=== PATIENT | female | born 1945 | race Caucasian/White ===

== ENCOUNTER → 2017-11-25 | Outpatient (CLI) | payer OTHER ==
[~2017-11-25] MED LIST: ACET500 PO; ACET650SUP PR; ACTOPLUS MET 15/850; AMIO200 PO; AMLO5 PO; AMOCLA875 PO; APAP PO; ASCO500 PO; ASPI81CH PO; ASPI81EC; ASPI81EC PO; ATOR40TA PO; ATOR80 PO; Aspirin EC81 MG PO; BISA10S PR; BISA5EC PO; CALCAVITD PO; CALGLU500 PO; CARV3.125 PO; CARV6.25 PO; CELE100 PO; CEPH500 PO; CHOL10002 PO; CILO100 PO; CILO50 PO; CIPR500 PO; CLIN300 PO; CLOP75 PO; CYAN1000 PO; CYAN500 PO; CYCL10 PO; Coreg6.25 MG PO; DIPH50 PO; DIPHENHYDRAMINE PO; DOCU100 PO; DRON400T PO; FAMO20 PO; FERR325 PO; FISH1000 PO; FLUC150A PO; FURO20 PO; FURO40 PO; FURO80 PO; GABA100 PO; GABA300 PO; HYDACE5 PO; HYDCHL25 PO; HYDHCL10 PO; INSDET100 SC; INSUASPI SC; INSUASPI SUBQ; INSULANI SC; INSULANI SUBQ; INSULANPEN SC; IRBE150; IRBE150 PO; ISOMON60ER PO; Jantoven6 MG PO; K-Tab10 MEQ PO; LAVAP17G PO; LEVSOD50 PO; LISI20 PO; LISI5 PO; MECL25 PO; METF500 PO; METO50ER PO; MULVITMIND PO; NEBI10 PO; NITR.4SL SL; NITR.6SL SL; NITRSPRAY; NITRSPRAY SL; NYST100TO TOP; NYSTATIN1 EACH MC; OXY PO; OXYACE5T PO; OXYC1TAB11 PO; POLY17UD PO; POTA10T; POTA8 PO; POTCHL20ER PO; PROM12.5S PR; Percocet 10-321 EACH PO; RAMI5 PO; RANI150 PO; REPLENEX PO; ROSU10TA PO; RXOXYACE PO; SENN187 PO; SIMV10 PO; SIMV40 PO; SPIR25 PO; TOCO1000 PO; TOCO400 PO; VIT1CAPS12; VIT1CAPS12 PO; WARF2.5 PO; WARF3 PO; XYZAL; [UNRECOGNIZED DRUG - OTHER]
[2017-11-25 12:12] LABS: Bilirubin, Urine Neg (Neg); Blood, Urine 2+ (Neg); Glucose Qualitative, Urine Neg (Neg); Ketones, Urine Neg (Neg); Leukocyte Esterase, Urine Neg (Neg); Nitrite, Urine Neg (Neg); Protein, Urine Neg (Neg); Specific Gravity, Urine 1.015 (1.003-1.022); Urobilinogen, Urine NORM (Normal)
[2017-11-25 12:19] LABS: Appearance, Urine Hazy (Clear); Color, Urine Yellow (P-Yellow)
[2017-11-25 12:22] LABS: Bacteria Many /hpf; Red Blood Cells, Urine 0-2 /hpf (0-2); Squamous Epithelial Cells Rare /hpf (Few)
== END ==
LOC: LAB 12:03
DX: R35.0 Frequency of micturition (principal); R32 Unspecified urinary incontinence
CPT/HCPCS: 81001; 87077; 87086; 87186

== ENCOUNTER 2018-01-07 15:39 | Emergency (ER) | payer OTHER ==
[~2018-01-07] VITALS: Ht 170.2 cm; Wt 111.1 kg
[2018-01-07 20:09] LABS: BASOPHILS ABSOLUTE AUTO 0.05 K/mm3 (0.00-0.23); BASOPHILS PERCENT AUTO 1 % (0-2); EOSINOPHILS ABSOLUTE AUTO 0.45 K/mm3 (0.00-0.68); EOSINOPHILS PERCENT AUTO 5 % (0-6); Hematocrit 42.3 % (33.0-51.0); Hemoglobin 13.6 g/dL (11.5-16.0); IMMATURE GRAN ABSOLUTE AUTO 0.02 K/mm3 (0.00-0.10); IMMATURE GRAN PERCENT AUTO 0 % (0-1); LYMPHOCYTES ABSOLUTE AUTO 2.41 K/mm3 (0.84-5.20); LYMPHOCYTES PERCENT AUTO 29 % (21-46); MONOCYTES ABSOLUTE AUTO 0.74 K/mm3 (0.16-1.47); MONOCYTES PERCENT AUTO 9 % (4-13); Mean Corpuscular HGB 28.8 pg (26.0-34.0); Mean Corpuscular HGB Conc 32.2 g/dL (31.5-36.5); Mean Corpuscular Volume 89 fL (80-100); Mean Platelet Volume 10.6 fL (9.1-12.4); NEUTROPHILS ABSOLUTE AUTO 4.64 K/mm3 (1.96-9.15); NEUTROPHILS PERCENT AUTO 56 % (41-73); Platelet Count 204 K/mm3 (150-400); RDW Coefficient Variation 12.8 % (11.7-14.2); RDW Standard Deviation 42.2 fL (35.1-46.3); Red Blood Cell Count 4.73 M/mm3 (3.80-5.20); White Blood Cell Count 8.31 K/mm3 (4.00-11.30)
[2018-01-07 20:22] LABS: International Normalized Ratio 2.05; Prothrombin Time Results 21.8 Sec (9.7-11.5)
[2018-01-07 20:31] LABS: Albumin, Blood 3.7 g/dL (3.4-5.0); Albumin/Globulin Ratio 0.7 (0.8-1.8); Bilirubin, Total 0.6 mg/dL (0.1-1.0); Bun/Creatinine Ratio 19.4 (12.0-20.0); Calcium, Blood 9.3 mg/dL (8.5-10.1); Creatinine, Blood 1.03 mg/dL (0.40-1.00); Free Thyroxine 1.49 ng/dL (0.70-1.60); Globulin, Blood 5.3 g/dL (2.2-4.0); Potassium, Blood 3.9 mmol/L (3.5-5.5)
[2018-01-07 20:35] LABS: Thyroid Stimulating Hormone 0.853 uIU/mL (0.360-4.800); Triiodothyronine, Free 2.28 pg/mL (2.18-3.98)
== END 2018-01-07 21:19 | disposition home or self-care (01) ==
LOC: ER 15:39
PROVIDERS: Emergency Medicine
DX: I10 Essential (primary) hypertension (principal); Z88.8 Allergy status to other drugs, medicaments and biological substances; Z79.899 Other long term (current) drug therapy; Z79.4 Long term (current) use of insulin; Z79.01 Long term (current) use of anticoagulants; Z79.82 Long term (current) use of aspirin; E11.9 Type 2 diabetes mellitus without complications; I11.0 Hypertensive heart disease with heart failure; I50.9 Heart failure, unspecified; I25.2 Old myocardial infarction; Z86.73 Personal history of transient ischemic attack (TIA), and cerebral infarction without residual deficits
CPT/HCPCS: 36415; 80053; 81000; 84439; 84443; 84481; 85025; 85610; 85730; 99283

== ENCOUNTER 2018-03-12 11:45 | Day surgery (SDC) | payer OTHER ==
[~2018-03-12] VITALS: Ht 170.2 cm; Wt 112.6 kg
== END 2018-03-12 15:11 | disposition home or self-care (01) ==
LOC: ORSCSDS 11:45
PROVIDERS: Internal Medicine Gastroenterology
PROC: 0DBK8ZX Excision of Ascending Colon, Via Natural or Artificial Opening Endoscopic, Diagnostic (ICD-10-PCS; principal; 2018-03-12 12:45)
PROC: 0DBL8ZX Excision of Transverse Colon, Via Natural or Artificial Opening Endoscopic, Diagnostic (ICD-10-PCS; principal; 2018-03-12 12:45)
DX: R19.5 Other fecal abnormalities (principal); D12.2 Benign neoplasm of ascending colon; D12.3 Benign neoplasm of transverse colon; K64.8 Other hemorrhoids; I25.10 Atherosclerotic heart disease of native coronary artery without angina pectoris; E11.9 Type 2 diabetes mellitus without complications; I49.9 Cardiac arrhythmia, unspecified; Z86.73 Personal history of transient ischemic attack (TIA), and cerebral infarction without residual deficits; I25.2 Old myocardial infarction; Z79.82 Long term (current) use of aspirin; Z79.899 Other long term (current) drug therapy
CPT/HCPCS: 82947; 88305; J7030

== ENCOUNTER 2018-04-08 10:27 | Emergency (ER) | payer OTHER ==
[~2018-04-08] VITALS: Ht 175.3 cm; Wt 131.5 kg
== END 2018-04-08 13:35 | disposition home or self-care (01) ==
LOC: ER 10:27
DX: S20.212A Contusion of left front wall of thorax, initial encounter (principal); S20.222A Contusion of left back wall of thorax, initial encounter; W19.XXXA Unspecified fall, initial encounter; E11.9 Type 2 diabetes mellitus without complications; I11.0 Hypertensive heart disease with heart failure; I50.9 Heart failure, unspecified; I25.2 Old myocardial infarction; Z91.048 Other nonmedicinal substance allergy status; Z79.891 Long term (current) use of opiate analgesic; Z79.899 Other long term (current) drug therapy; Z79.4 Long term (current) use of insulin
CPT/HCPCS: 71101; 72070; 99283

== ENCOUNTER → 2018-04-08 | Outpatient (CLI) | payer OTHER | END | disposition home or self-care (01) | LOC: LAB SHORT 12:24 → LAB 12:24 | DX: N39.41 Urge incontinence (principal); R35.0 Frequency of micturition | CPT/HCPCS: 87077; 87086; 87186 ==

== ENCOUNTER 2019-01-03 15:28 | Observation (INO) | payer MEDICARE, OTHER ==
[~2019-01-03] VITALS: Ht 170.2 cm; Wt 120.6 kg
[2019-01-03 19:41] LABS: PCO2 Arterial 49.7 mmHg (35-45); pH Blood Arterial 7.38 (7.35-7.45)
[2019-01-03 20:02] LABS: Alanine Aminotransfer (ALT/SGP 19 U/L (12-78); Albumin, Blood 2.7 g/dL (3.4-5.0); Albumin/Globulin Ratio 0.6 (0.8-1.8); Alk Phos 118 U/L (50-136); Anion Gap 6 mmol/L (6-16); Aspartate Aminotrans (AST/SGOT 14 U/L (12-37); Bilirubin, Total 1.3 mg/dL (0.1-1.0); Blood Urea Nitrogen 20 mg/dL (8-24); Bun/Creatinine Ratio 22.7 (12.0-20.0); CO2, Blood 26 mmol/L (21-32); Calcium, Blood 8.4 mg/dL (8.5-10.1); Chloride, Blood 109 mmol/L (98-108); Creatinine, Blood 0.88 mg/dL (0.40-1.00); Globulin, Blood 4.4 g/dL (2.2-4.0); Glomerular Filtration Rate >60 (60-); Glucose, Blood 155 mg/dL (70-99); Potassium, Blood 4.8 mmol/L (3.5-5.5); Sodium, Blood 141 mmol/L (136-145); Total Protein, Blood 7.1 g/dL (6.4-8.2)
[2019-01-03 20:06] LABS: International Normalized Ratio 2.11; Prothrombin Time Results 20.9 Sec (9.7-11.5)
[2019-01-03 20:39] LABS: BASOPHILS ABSOLUTE AUTO 0.03 K/mm3 (0.00-0.23); BASOPHILS PERCENT AUTO 0 % (0-2); EOSINOPHILS ABSOLUTE AUTO 0.04 K/mm3 (0.00-0.68); EOSINOPHILS PERCENT AUTO 0 % (0-6); Hematocrit 36.7 % (33.0-51.0); Hemoglobin 11.4 g/dL (11.5-16.0); IMMATURE GRAN ABSOLUTE AUTO 0.01 K/mm3 (0.00-0.10); IMMATURE GRAN PERCENT AUTO 0 % (0-1); LYMPHOCYTES ABSOLUTE AUTO 1.92 K/mm3 (0.84-5.20); LYMPHOCYTES PERCENT AUTO 20 % (21-46); MONOCYTES ABSOLUTE AUTO 1.06 K/mm3 (0.16-1.47); MONOCYTES PERCENT AUTO 11 % (4-13); Mean Corpuscular HGB 29.6 pg (26.0-34.0); Mean Corpuscular HGB Conc 31.1 g/dL (31.5-36.5); Mean Corpuscular Volume 95 fL (80-100); Mean Platelet Volume 11.4 fL (9.1-12.4); NEUTROPHILS ABSOLUTE AUTO 6.35 K/mm3 (1.96-9.15); NEUTROPHILS PERCENT AUTO 68 % (41-73); Platelet Count 155 K/mm3 (150-400); RDW Coefficient Variation 13.1 % (11.7-14.2); RDW Standard Deviation 45.3 fL (35.1-46.3); Red Blood Cell Count 3.85 M/mm3 (3.80-5.20); White Blood Cell Count 9.41 K/mm3 (4.00-11.30)
[2019-01-04] MEDS ORDERED: FURO20 PO (00:30)
[2019-01-04] MEDS ORDERED: POTA10T PO (00:31)
[2019-01-04] MEDS ORDERED: LOSA25 PO (00:32)
[2019-01-04] MEDS ORDERED: Humalog100 UNIT/1 (00:35)
--- NOTE | 2019-01-04 01:06 | NUR ---
[place] of Care/Admission: Patient arrived to unit via stretcher, accompanied by ED nurse. Stood and transferred to ICU bed via [id number] without difficulty. Alert and oriented x4. C/o stomach pain/discomfort, states Ranitidine given in ED helpful, denies needs for further medications, ABD CT shows no acute pathology. O2-94-95% on 2L/NC, denies dyspnea/SOB. Peripheral IV x1 patent and intact, SL. Voided and BM using BEC without difficulty. Call light in reach, makes needs known. Will continue to monitor for pain, comfort, safety.
[2019-01-04 04:20] LABS: Hematocrit 37.8 % (33.0-51.0); Hemoglobin 11.5 g/dL (11.5-16.0); Mean Corpuscular HGB 29.3 pg (26.0-34.0); Mean Corpuscular HGB Conc 30.4 g/dL (31.5-36.5); Mean Corpuscular Volume 96 fL (80-100); Mean Platelet Volume 11.7 fL (9.1-12.4); Platelet Count 159 K/mm3 (150-400); RDW Standard Deviation 45.9 fL (35.1-46.3); Red Blood Cell Count 3.93 M/mm3 (3.80-5.20)
[2019-01-04 04:39] LABS: Bun/Creatinine Ratio 20.3 (12.0-20.0); Calcium, Blood 8.4 mg/dL (8.5-10.1); Creatinine, Blood 0.98 mg/dL (0.40-1.00); Potassium, Blood 4.1 mmol/L (3.5-5.5)
--- NOTE | 2019-01-04 06:10 | NUR ---
Shift Summary: Patient slept well throughout remainder of shift. No further c/o stomach pain/discomfort. VSS, O2-95-99% on 2L/NC, denies dyspnea or SOB. Transferred x2 stand-pivot to bedside commode without difficulty. Peripheral IV x1 patent and intact. Call light in reach, makes needs known. Will continue to monitor until report to day shift RN.
--- NOTE | 2019-01-04 09:00 | NUR ---
ASSUMED CARE / DR. WHARTON / UPDATE: REPORT RECEIVED FROM ANIRUDH Jamison RN. ASSUMED CARE OF THIS PT AT APPROX 0700. ON ASSESSMENT, THE PT IS RESTING QUIETLY. SHE STS MILD PAIN TO ABD THAT IS "ACHING," BUT IS IMPROVED SLIGHTLY SINCE ADMIT. SHE DENIES NEEDS AT THIS TIME. DR. WHARTON IN ROOM TO SEE PT THIS AM. HE STS PT IS OKAY TO D/C HOME. CALL FROM EMILY, PT's [id number], SHE STS THAT SHE WOULD LIKE PT's TENTERING MACHINE OFF BEARER, DR. MARX, TO BE CONSULTED IF CHANGES/ADDITIONS TO CARDIAC MEDS ARE MADE. SHE ALSO STS THAT SHE WILL NOT BE ABLE TO TAKE THE PT HOME TODAY, SHE WORKS TONIGHT. WILL CONTINUE TO MONITOR & UPDATE NEEDED.
[2019-01-04 11:04] LABS: Source, Urine Clean Catch
[2019-01-04 11:10] LABS: Appearance, Urine Hazy (Clear); Bilirubin, Urine Neg (Neg); Blood, Urine 2+ (Neg); Color, Urine Yellow (P-Yellow); Glucose Qualitative, Urine Neg (Neg); Ketones, Urine Neg (Neg); Leukocyte Esterase, Urine 2+ (Neg); Nitrite, Urine Neg (Neg); Protein, Urine Neg (Neg); Urobilinogen, Urine NORM (Normal)
--- NOTE | 2019-01-04 12:29 | NUR ---
UPDATE: CALL TO DR. MARX, DISCUSSED THIS PT & ADDITION OF BETA BETTYE TO MED REGIMEN BY HOSPITALIST, PER PT FAMILY REQUEST. HE STS THAT HE AGREES W/ ADDITION OF BETA BETTYE TO PT's CURRENT MED REGIMEN & IS IN AGREEANCE W/ DR. ERIC REGARDING PT's DISCHARGE TODAY. ATTEMPT HAS BEEN MADE TO CALL EMILY, PT's [id number], TO PROVIDE UPDATE W/ NO ANSWER. WILL CONTINUE TO MONITOR & UPDATE NEEDED.
[2019-01-04 12:42] LABS: Bacteria Many /hpf; Squamous Epithelial Cells Few /hpf (Few); Transitional Epithelial Cells Few /hpf (0-Rare)
[2019-01-04] MEDS ORDERED: LEVSOD125 PO (13:57)
[2019-01-04] MEDS ORDERED: Toprol Xl50 MG PO (14:00)
[2019-01-04] MEDS ORDERED: OMEPRAZOLE MAGN20 MG PO (14:01)
--- NOTE | 2019-01-04 17:10 | NUR ---
DISCHARGE- PT. D/C'D HOME ACC. BY FAMILY. INSTRUCTIONS GIVEN AND VERBALIZES UNDERSTANDING. PT. TAKEN TO CAR VIA W/C.
== END 2019-01-04 17:14 | disposition home or self-care (01) ==
LOC: ER 15:28 → ICUW 15:29 → ERHOLD 15:29 → ICUW 15:30 → ER 21:49 → ICUW 21:49 → ERHOLD 21:49 → ICUW 23:36 → ERHOLD 23:51 → ICUW 23:51
PROVIDERS: Emergency Medicine; Internal Medicine; Nurse Practitioner Acute Care; Physician Assistant; ADMIT Internal Medicine
DX: I13.0 Hypertensive heart and chronic kidney disease with heart failure and stage 1 through stage 4 chronic kidney disease, or unspecified chronic kidney disease (principal); I50.33 Acute on chronic diastolic (congestive) heart failure; E11.22 Type 2 diabetes mellitus with diabetic chronic kidney disease; N18.3 Chronic kidney disease, stage 3 (moderate); J96.01 Acute respiratory failure with hypoxia; R10.9 Unspecified abdominal pain; D63.1 Anemia in chronic kidney disease; I48.2 Chronic atrial fibrillation; E03.9 Hypothyroidism, unspecified; I25.5 Ischemic cardiomyopathy; I25.10 Atherosclerotic heart disease of native coronary artery without angina pectoris; E78.5 Hyperlipidemia, unspecified; E66.01 Morbid (severe) obesity due to excess calories; Z86.73 Personal history of transient ischemic attack (TIA), and cerebral infarction without residual deficits; Z88.8 Allergy status to other drugs, medicaments and biological substances; Z88.1 Allergy status to other antibiotic agents; Z79.899 Other long term (current) drug therapy; Z79.82 Long term (current) use of aspirin; Z79.4 Long term (current) use of insulin; Z68.39 Body mass index [BMI] 39.0-39.9, adult
CPT/HCPCS: 36415; 36600; 71045; 74177; 80048; 80053; 81001; 82803; 82947; 83605; 83690; 83880; 84145; 84439; 84443; 84484; 85025; 85027; 85610; 87040; 87077; 87086; 87186; 93005; 93010; 93306; 96374-59; 96376; 99285-25; G0378; J1940; Q9967

== ENCOUNTER 2019-01-08 15:16 | Emergency (ER) | payer MEDICARE, OTHER ==
[~2019-01-08] VITALS: Ht 165.1 cm; Wt 115.7 kg
[~2019-01-08 15:16] MED LIST changes: +Humalog100 UNIT/1; +LEVSOD125 PO; +LOSA25 PO; +OMEPRAZOLE MAGN20 MG PO; +POTA10T PO; +Toprol Xl50 MG PO
[2019-01-08 16:44] LABS: BASOPHILS ABSOLUTE AUTO 0.03 K/mm3 (0.00-0.23); BASOPHILS PERCENT AUTO 0 % (0-2); EOSINOPHILS ABSOLUTE AUTO 0.32 K/mm3 (0.00-0.68); EOSINOPHILS PERCENT AUTO 4 % (0-6); Hematocrit 36.7 % (33.0-51.0); Hemoglobin 11.3 g/dL (11.5-16.0); IMMATURE GRAN ABSOLUTE AUTO 0.03 K/mm3 (0.00-0.10); IMMATURE GRAN PERCENT AUTO 0 % (0-1); LYMPHOCYTES ABSOLUTE AUTO 1.71 K/mm3 (0.84-5.20); LYMPHOCYTES PERCENT AUTO 19 % (21-46); MONOCYTES ABSOLUTE AUTO 0.73 K/mm3 (0.16-1.47); MONOCYTES PERCENT AUTO 8 % (4-13); Mean Corpuscular HGB Conc 30.8 g/dL (31.5-36.5); Mean Corpuscular Volume 94 fL (80-100); Mean Platelet Volume 10.7 fL (9.1-12.4); NEUTROPHILS ABSOLUTE AUTO 6.05 K/mm3 (1.96-9.15); NEUTROPHILS PERCENT AUTO 68 % (41-73); Platelet Count 210 K/mm3 (150-400); RDW Coefficient Variation 13.5 % (11.7-14.2); RDW Standard Deviation 45.6 fL (35.1-46.3); Red Blood Cell Count 3.89 M/mm3 (3.80-5.20); White Blood Cell Count 8.87 K/mm3 (4.00-11.30)
[2019-01-08 17:09] LABS: Albumin/Globulin Ratio 0.7 (0.8-1.8); Bun/Creatinine Ratio 23.3 (12.0-20.0); Calcium, Blood 8.7 mg/dL (8.5-10.1); Creatinine, Blood 1.2 mg/dL (0.40-1.00); Globulin, Blood 4.4 g/dL (2.2-4.0); Potassium, Blood 4.6 mmol/L (3.5-5.5); Total Protein, Blood 7.4 g/dL (6.4-8.2)
[2019-01-08 18:01] LABS: International Normalized Ratio 1.69; Prothrombin Time Results 17.1 Sec (9.7-11.5)
[2019-01-08 19:48] LABS: Source, Urine Clean Catch
[2019-01-08 20:02] LABS: Bilirubin, Urine Neg (Neg); Blood, Urine 3+ (Neg); Glucose Qualitative, Urine Neg (Neg); Ketones, Urine Neg (Neg); Leukocyte Esterase, Urine 1+ (Neg); Nitrite, Urine Pos (Neg); Protein, Urine 1+ (Neg); Specific Gravity, Urine 1.015 (1.003-1.022); Urobilinogen, Urine NORM (Normal)
[2019-01-08 20:31] LABS: Appearance, Urine Hazy (Clear); Color, Urine Yellow (P-Yellow)
[2019-01-08 20:33] LABS: Red Blood Cells, Urine Rare /hpf (0-2)
[2019-01-08 20:34] LABS: Bacteria Many /hpf; Mucus Light (0-Heavy); Squamous Epithelial Cells Mod /hpf (Few); Transitional Epithelial Cells Few /hpf (0-Rare)
== END 2019-01-08 22:17 | disposition home or self-care (01) ==
LOC: ER 15:16
PROVIDERS: Emergency Medicine; Physician Assistant
DX: I13.0 Hypertensive heart and chronic kidney disease with heart failure and stage 1 through stage 4 chronic kidney disease, or unspecified chronic kidney disease (principal); I50.9 Heart failure, unspecified; E11.22 Type 2 diabetes mellitus with diabetic chronic kidney disease; N18.9 Chronic kidney disease, unspecified; R10.9 Unspecified abdominal pain; Z91.048 Other nonmedicinal substance allergy status; Z88.1 Allergy status to other antibiotic agents; Z79.899 Other long term (current) drug therapy; Z79.01 Long term (current) use of anticoagulants; Z79.82 Long term (current) use of aspirin; Z79.4 Long term (current) use of insulin; I48.91 Unspecified atrial fibrillation; Z86.73 Personal history of transient ischemic attack (TIA), and cerebral infarction without residual deficits
CPT/HCPCS: 36415; 71046; 80053; 81001; 83605; 83690; 83880; 85025; 85610; 85730; 87077; 87086; 87186; 93005; 93010; 96374; 99284-25; J1940

== ENCOUNTER 2019-01-14 21:09 | Inpatient (IN) | payer MEDICARE, OTHER ==
[~2019-01-14] VITALS: Ht 167.6 cm; Wt 116.4 kg
[2019-01-14 21:37] LABS: BASOPHILS ABSOLUTE AUTO 0.05 K/mm3 (0.00-0.23); BASOPHILS PERCENT AUTO 1 % (0-2); EOSINOPHILS ABSOLUTE AUTO 0.32 K/mm3 (0.00-0.68); EOSINOPHILS PERCENT AUTO 3 % (0-6); Hematocrit 37.8 % (33.0-51.0); Hemoglobin 11.3 g/dL (11.5-16.0); IMMATURE GRAN ABSOLUTE AUTO 0.02 K/mm3 (0.00-0.10); IMMATURE GRAN PERCENT AUTO 0 % (0-1); LYMPHOCYTES ABSOLUTE AUTO 2.03 K/mm3 (0.84-5.20); LYMPHOCYTES PERCENT AUTO 22 % (21-46); MONOCYTES ABSOLUTE AUTO 0.87 K/mm3 (0.16-1.47); MONOCYTES PERCENT AUTO 9 % (4-13); Mean Corpuscular HGB 29.5 pg (26.0-34.0); Mean Corpuscular HGB Conc 29.9 g/dL (31.5-36.5); Mean Platelet Volume 10.9 fL (9.1-12.4); NEUTROPHILS ABSOLUTE AUTO 6.07 K/mm3 (1.96-9.15); NEUTROPHILS PERCENT AUTO 65 % (41-73); Platelet Count 184 K/mm3 (150-400); RDW Coefficient Variation 14.3 % (11.7-14.2); Red Blood Cell Count 3.83 M/mm3 (3.80-5.20); White Blood Cell Count 9.36 K/mm3 (4.00-11.30)
[2019-01-14 21:38] LABS: Mean Corpuscular Volume 99 fL (80-100)
[2019-01-14 21:59] LABS: Alanine Aminotransfer (ALT/SGP 21 U/L (12-78); Albumin/Globulin Ratio 0.7 (0.8-1.8); Alk Phos 105 U/L (50-136); Anion Gap 4 mmol/L (6-16); Aspartate Aminotrans (AST/SGOT 12 U/L (12-37); Bilirubin, Total 0.6 mg/dL (0.1-1.0); Blood Urea Nitrogen 32 mg/dL (8-24); Bun/Creatinine Ratio 28.3 (12.0-20.0); CO2, Blood 32 mmol/L (21-32); Calcium, Blood 8.5 mg/dL (8.5-10.1); Chloride, Blood 105 mmol/L (98-108); Creatinine, Blood 1.13 mg/dL (0.40-1.00); Globulin, Blood 4.2 g/dL (2.2-4.0); Glomerular Filtration Rate 50 (60-); Glucose, Blood 226 mg/dL (70-99); Potassium, Blood 4.6 mmol/L (3.5-5.5); Sodium, Blood 141 mmol/L (136-145); Total Protein, Blood 7.2 g/dL (6.4-8.2); Troponin I <0.015 ng/mL (0.000-0.040)
[2019-01-15 00:47] LABS: International Normalized Ratio 2.11; Prothrombin Time Results 20.9 Sec (9.7-11.5)
[2019-01-15] MEDS ORDERED: PRESERVISION PO (05:20)
[2019-01-15] MEDS ORDERED: CHOL10002 PO (05:21)
[2019-01-15] MEDS ORDERED: NYST100000 (05:22)
[2019-01-15] MEDS ORDERED: [UNRECOGNIZED DRUG - OTHER] (05:24)
[2019-01-15] MEDS ORDERED: TRIAMCINOLONE (05:25)
[2019-01-15] MEDS ORDERED: ERYTHROMYCIN 2% (05:57)
--- NOTE | 2019-01-15 07:42 | NUR ---
SHIFT SUMMARY PATIENT PLEASENT AND COOPERATIVE SINCE ADMIT TO THE FLOOR. PATIENT ABLE TO AMBULATE TO THE BATHROOM WITH ONE ASSIST AND FWW. PATIENT APPEARS TO HAVE SLEPT WELL FOR SEVERAL HOURS AFTER ADMIT. PATIENT DENIES ANY CHEST PAIN AT THIS TIME AND REPORTS HER BREATHING IS BETTER. VITAL SIGNS CHARTED. REPORT GIVEN TO ONCOMING RN.
[2019-01-15 08:58] LABS: Hematocrit 37.9 % (33.0-51.0); Hemoglobin 11.1 g/dL (11.5-16.0); Mean Corpuscular HGB 29.4 pg (26.0-34.0); Mean Corpuscular HGB Conc 29.3 g/dL (31.5-36.5); Mean Corpuscular Volume 100 fL (80-100); Mean Platelet Volume 11.1 fL (9.1-12.4); Platelet Count 175 K/mm3 (150-400); RDW Coefficient Variation 14.4 % (11.7-14.2); RDW Standard Deviation 51.5 fL (35.1-46.3); Red Blood Cell Count 3.78 M/mm3 (3.80-5.20)
[2019-01-15 09:15] LABS: Albumin, Blood 2.8 g/dL (3.4-5.0); Albumin/Globulin Ratio 0.7 (0.8-1.8); Bilirubin, Total 0.8 mg/dL (0.1-1.0); Bun/Creatinine Ratio 29.8 (12.0-20.0); Calcium, Blood 8.6 mg/dL (8.5-10.1); Creatinine, Blood 1.04 mg/dL (0.40-1.00); Globulin, Blood 4.1 g/dL (2.2-4.0); Potassium, Blood 4.2 mmol/L (3.5-5.5); Total Protein, Blood 6.9 g/dL (6.4-8.2)
[2019-01-15 11:10] LABS: International Normalized Ratio 2.49; Prothrombin Time Results 24.3 Sec (9.7-11.5)
--- NOTE | 2019-01-15 15:45 | NUR ---
BEGINNING OF SHIFT AND TRANSFER TO SURGICAL FLOOR Assumed care of pt at 0700. Report recieved from Duc WISEMAN. Pt on room air. Atrial fibrillation per telemetry. Pt OOB several times to use BSC. Pt's son and daughter in law visited pt for a few minutes today. Pt tolerates activity well. Pt transferred to room 208. Telephone report given to Shea WISEMAN. Pt departed from PCU at 1545 via wheelchair. Chart, medications, and belongings transferred with patient.
--- NOTE | 2019-01-15 16:00 | NUR ---
PT ARRIVED TO ROOM 208 FROM PCU 2 PT ORIENTED TO ROOM LAYOUT PT STATED SHE IS COLD EXTRA BLANKETS GIVEN
--- NOTE | 2019-01-15 17:56 | NUR ---
PT SLEEPING NC PLACED 4L BIOX SLOWY WENT UP TO 93% RA 64% PT WAKES TALKS BRIEFLY THEN FALLS BACK TO SLEEP PT BREATHING THRU HER MOUTH
--- NOTE | 2019-01-16 04:04 | NUR ---
SHIFT SUMMARY: PT SLEEPING MOST OF SHIFT. REMAINED ON 4L PER NC WHILE SLEEPING. SATS STABLE AT 94%. NOW ON CONTINUOUS PULSE OX. PT NON-COMPLIANT AT TIMES WITH O2. A-FIB WITH HR BETWEEN 90-95 PER NURSERY TEACHER. OOB TO BATHROOM ONCE WITH WALKER. 1 SBA. BLADDER SCANNED AFTER VOID SHOWED 0ML. 4+ EDEMA TO BLE. CLEAR LUNG SOUNDS. PT APPEARS TO HAVE DYSPNEA AT REST. DENIES SOB AND C/P.
[2019-01-16 04:48] LABS: International Normalized Ratio 2.4; Prothrombin Time Results 23.5 Sec (9.7-11.5)
--- NOTE | 2019-01-16 16:52 | NUR ---
SHIFT SUMMARY PT A&OX4, VSS, TELE AFIB @ 76. [facility] [place] CNI. DENIES CP. SOB W/EXERT, ON 2L NC WHILE SLEEPING 95%, BIOX ON. VOIDING WELL, SEVERAL BMS TODAY. BREANA PO, DENIES N&V. AMB W/ FWW & SBA TO BRP. UP TO CHAIR FOR MEALS. WILL CTM & TX PER EMAR UNTIL REPORT GIVEN TO ONCOMING ROSS WISEMAN.
--- NOTE | 2019-01-17 04:26 | NUR ---
SHIFT SUMMARY: NO ACUTE CHANGES OVER NIGHT. DENIES C/P. DOES C/O SOB. HEAD OF BED ELEVATED. SATS >92% ON 2L PER NC. OOB SEVERAL TIMES TO CHAIR AND BATHROOM. SBA W/FWW +1. SOB AND WEAKNESS UPON STANDING. PT ENC TO AMBULATE MORE OFTEN. VOIDING WELL. LEGS ELEVATED ON 2 PILLOWS. A FIB IN 70'S PER MOLDING LINE ASSISTANT. MEDICATED WITH OXY TWICE FOR C/O PAIN. PT REPORTS "PAIN ALL OVER".
[2019-01-17 04:48] LABS: Hematocrit 38.2 % (33.0-51.0); Hemoglobin 11.3 g/dL (11.5-16.0); Mean Corpuscular HGB 29.1 pg (26.0-34.0); Mean Corpuscular HGB Conc 29.6 g/dL (31.5-36.5); Mean Corpuscular Volume 99 fL (80-100); Mean Platelet Volume 11.1 fL (9.1-12.4); Platelet Count 168 K/mm3 (150-400); RDW Coefficient Variation 14.2 % (11.7-14.2); RDW Standard Deviation 50.6 fL (35.1-46.3); Red Blood Cell Count 3.88 M/mm3 (3.80-5.20); White Blood Cell Count 9.82 K/mm3 (4.00-11.30)
[2019-01-17 05:03] LABS: International Normalized Ratio 2.18; Prothrombin Time Results 21.5 Sec (9.7-11.5)
[2019-01-17 05:13] LABS: Albumin, Blood 2.8 g/dL (3.4-5.0); Anion Gap 5 mmol/L (6-16); Blood Urea Nitrogen 29 mg/dL (8-24); Bun/Creatinine Ratio 28.2 (12.0-20.0); CO2, Blood 33 mmol/L (21-32); Calcium, Blood 8.6 mg/dL (8.5-10.1); Chloride, Blood 105 mmol/L (98-108); Creatinine, Blood 1.03 mg/dL (0.40-1.00); Glomerular Filtration Rate 56 (60-); Glucose, Blood 170 mg/dL (70-99); Phosphorus, Blood 3.1 mg/dL (2.5-4.9); Potassium, Blood 4.2 mmol/L (3.5-5.5); Sodium, Blood 143 mmol/L (136-145)
--- NOTE | 2019-01-17 19:27 | NUR ---
SHIFT SUMMARY PT EATING AND DRINKING, VOIDING. PT REPORTS FEELING TIRED THIS EVENING. PT REPORTS THAT FEET/ANKLES FEEL LESS SWOLLEN/EDEMATOUS. PT BEEN ASSISTED MULT TIMES UP TO BATHROOM. PT ASSISTED TO WALK SHORT DISTANCE IN HALLWAY. CREAM BEEN APPLIED TO PT'S BOTTOM PER PT REQ. BED ALARM IN PLACE. TELE REMAINED AFIB TODAY. PT DID NOT HAVE ANY CP TODAY PER PT.
--- NOTE | 2019-01-18 03:27 | NUR ---
SHIFT SUMMARY: NO ACUTE CHANGES OVER NIGHT. PT OOB TO BATHROOM SEVERAL TIMES W/FWW AND ONE ASSIST. MEDICATED WITH OXY PER EMAR. EDEMA TO BLE APPEARS TO BE MIDLY IMPROVING. WILL START PO LASIX THIS AM. SATS AT 94 ON 2 L. USING OXYGEN PRN. DENIES CP. REPORTS SOB UPON EXERTION. APPEARS TO BE MORE STEADY ON FEET WHILE AMBULATING.
[2019-01-18 04:58] LABS: International Normalized Ratio 1.78; Prothrombin Time Results 17.9 Sec (9.7-11.5)
[2019-01-18 05:06] LABS: Anion Gap 7 mmol/L (6-16); Blood Urea Nitrogen 26 mg/dL (8-24); Bun/Creatinine Ratio 27.1 (12.0-20.0); CO2, Blood 32 mmol/L (21-32); Calcium, Blood 8.8 mg/dL (8.5-10.1); Chloride, Blood 102 mmol/L (98-108); Creatinine, Blood 0.96 mg/dL (0.40-1.00); Glomerular Filtration Rate >60 (60-); Glucose, Blood 109 mg/dL (70-99); Potassium, Blood 3.9 mmol/L (3.5-5.5); Sodium, Blood 141 mmol/L (136-145)
--- NOTE | 2019-01-18 07:00 | NUR ---
REPORT FROM JAYDEN WISEMAN. ASSUMED PT CARE.
--- NOTE | 2019-01-18 07:13 | NUR ---
PT UP TO RR INDEPENDENTLY, THEN TO CHAIR. PT USES WALKER WHEN AMBULATING. PT DENIES NEEDS AT THIS TIME. PT ALERT AND ORIENTED.
--- NOTE | 2019-01-18 08:15 | NUR ---
PT MEDICATED PER EMAR. PT DENIES NEED FOR ADDITIONAL PAIN MEDS. PT EATING BREAKFAST. PT UNDERSTANDS NPO (EXCEPT FOR WATER) AFTER BREAKFAST FOR TEST. ASSESSMENT CHARTED.
--- NOTE | 2019-01-18 08:30 | NUR ---
DR KLEIN TO ROOM FOR EVAL. PLAN FOR CARDIAC STRESS TEST WITHIN THE NEXT TWO DAYS.
--- NOTE | 2019-01-18 08:40 | NUR ---
20G IV TO RIGHT WRIST STARTED. PT BREANA WELL. DRESSED WITH WINDOW DSG.
--- NOTE | 2019-01-18 09:50 | NUR ---
PT IN NO DISTRESS. SITTING IN CHAIR WATCHING TV.
--- NOTE | 2019-01-18 12:06 | NUR ---
PT SITTING UP IN CHAIR. HAD AN ACCIDENT ON HER WAY TO . ROOM TIDIED AND MOPPED. NEW GOWN AND SOCKS PROVIDED. PT BACK ON PULS OX AND TELE.
--- NOTE | 2019-01-18 13:02 | NUR ---
PT MEDICATED WITH 30 UNITS LANTUS. NO HUMALOG COVERAGE NEEDED. PT BREANA LUNCH WELL. AWAITING IMAGING DEP/INTERVENTIONAL RADIOLOGY FOR PROCEDURE.
--- NOTE | 2019-01-18 13:30 | NUR ---
PT TO IMAGING VIA WC.
--- NOTE | 2019-01-18 13:55 | NUR ---
PT RETURNED FROM IMAGING. DENIES NEEDS.
--- NOTE | 2019-01-18 15:37 | NUR ---
ADDITIONAL FAMILY TO ROOM. NADN. DENIES NEEDS.
--- NOTE | 2019-01-18 18:32 | NUR ---
PT SITTING UP IN CHAIR, DENIES NEEDS.
--- NOTE | 2019-01-18 18:41 | NUR ---
ASSISTED PT BACK TO BED. PT ASKING FOR PAIN PILL. PAIN MED PROVIDED.
--- NOTE | 2019-01-18 18:52 | NUR ---
VISITORS AT BEDSIDE.
--- NOTE | 2019-01-19 04:22 | NUR ---
DID OK DURING NIGHT. PT SPO2 DOES DROP WHILE SLEEPING TO LOW 80'S SO DID PLACE ON OXYGEN AND TITRATED TO 3L NC TO MAINTAIN IN 90'S. PT HAS BEEN UP AMBULATING IN [place] AND BR USING FWW AND DOES BECOME SOB BUT STATES THATS ABOUT BACK TO BASELINE. BLE EDEMA DOSE REMAIN DEEP 4+. PT HAS HAD AN 8LB WEIGHT LOSS SINCE ADMIT. PT IS NOW RESTING BACK IN BED. CALL LIGHT IN REACH. CONT WITH CURRENTL TREATMENT PLAN.
[2019-01-19 05:57] LABS: International Normalized Ratio 1.88; Prothrombin Time Results 18.8 Sec (9.7-11.5)
[2019-01-19 06:14] LABS: Anion Gap 2 mmol/L (6-16); Blood Urea Nitrogen 24 mg/dL (8-24); Bun/Creatinine Ratio 27.9 (12.0-20.0); CO2, Blood 34 mmol/L (21-32); Calcium, Blood 8.2 mg/dL (8.5-10.1); Chloride, Blood 104 mmol/L (98-108); Creatinine, Blood 0.86 mg/dL (0.40-1.00); Glomerular Filtration Rate >60 (60-); Glucose, Blood 77 mg/dL (70-99); Potassium, Blood 3.9 mmol/L (3.5-5.5); Sodium, Blood 140 mmol/L (136-145)
--- NOTE | 2019-01-19 12:32 | NUR ---
[facility] IN ROOM FOR ODELL.
--- NOTE | 2019-01-19 14:05 | NUR ---
PT TO IMAGING VIA W/C.
--- NOTE | 2019-01-19 18:24 | NUR ---
SHIFT SUMMARY: PT IS A&O X4. EATING, DRINKING AND VOIDING WELL. SHE IS A 1 ASSIST W/FWW TO RESTROOM. SHE NEEDS ASSISTANCE WITH FRANCIA CARE. SATS >90% ON RA. DENIES SOB AT REST. DYSPNEA W/EXERTION. SELF RECOVERS FROM DYSPNEA IN < 1 MIN. DENIES PAIN AT THIS TIME. REQUESTED NORCO 1X THIS MORNING AND REPORTS ADEQUATE RELIEF. NO CHANGES NOTED IN HEART RATE/RHYTHM, TELE DC'D. DENIES CP. NUC MED STRESS TEST COMPLETED TODAY. PT REFUSED LANTUS THIS MORNING. NO HUMALOG COVERAGE NEEDED T/O DAY. WILL CTM UNTIL REPORT GIVEN TO NEXT SHIFT RN.
--- NOTE | 2019-01-20 01:15 | NUR ---
PLACED ON OXYGEN CONT PULSE OX ALARMING FOR SPO2 84-86%. DID PLACE ON 2L NC AND SPO2 CAME UP TO 94%
--- NOTE | 2019-01-20 05:27 | NUR ---
NO SIG CHANGES DURING NIGHT. SWELLING HAS GONE DOWN AND PT HAS CONT TO LOSE WEIGHT. STATES FEELING MUCH BETTER. DID STILL NEED TO BE PLACED ON O2 LAST NIGHT AT 2L NC FOR LOW SPO2. PT HAS BEEN AMBULATING BETTER TO AND FROM BR WITH JUST SBA. CALL LIGHT IN REACH. WILL REPORT OFF TO DAY SHIFT.
[2019-01-20 05:35] LABS: International Normalized Ratio 1.78; Prothrombin Time Results 17.9 Sec (9.7-11.5)
[2019-01-20 05:37] LABS: Albumin, Blood 2.8 g/dL (3.4-5.0); Anion Gap 6 mmol/L (6-16); Blood Urea Nitrogen 28 mg/dL (8-24); CO2, Blood 34 mmol/L (21-32); Calcium, Blood 8.4 mg/dL (8.5-10.1); Chloride, Blood 104 mmol/L (98-108); Creatinine, Blood 1.12 mg/dL (0.40-1.00); Glomerular Filtration Rate 51 (60-); Glucose, Blood 138 mg/dL (70-99); Phosphorus, Blood 4.3 mg/dL (2.5-4.9); Potassium, Blood 4.1 mmol/L (3.5-5.5); Sodium, Blood 144 mmol/L (136-145)
--- NOTE | 2019-01-20 07:00 | NUR ---
REPORT FROM MELY WISEMAN. ASSUMED PT CARE.
--- NOTE | 2019-01-20 07:15 | NUR ---
PT LYING IN BED. ALERT AND ORIENTED. C/O IV BEING SORE. WILL ASSESS. JIG AND FIXTURE BUILDER AT BEDSIDE FOR VS.
--- NOTE | 2019-01-20 08:03 | NUR ---
ASSESSMENT CHARTED. UP TO RR, REQUIRED ASSISTANCE WITH WIPING. PT TO CHAIR FOR BREAKFAST AND MEDS. AMBULATES WITH WALKER.
--- NOTE | 2019-01-20 08:05 | NUR ---
IV TO RIGHT WRIST INFILTRATED. SMALL AMOUNT OF SWELLING NOTED. IV REMOVED. TIP INTACT. DRESSING PLACED.
--- NOTE | 2019-01-20 09:00 | NUR ---
THIS RN SPOKE WITH DR VELA RE IV INFILTRATION AND NEED FOR ORAL LASIX. PROVIDER TO ASSESS PT AND REVIEW CHART.
--- NOTE | 2019-01-20 09:12 | NUR ---
PT ASLEEP UPON ENTERING ROOM. O2 SAT 85-87%. WAKES WITH CALLING NAME AND RUBBING ARM. ASSISTED PT TO RECLINING POSITION IN CHAIR. PLACED O2 VIA NC ON PT. 2L BEING DELIVERED. PT DOZES EASILY.
--- NOTE | 2019-01-20 10:12 | NUR ---
WARM BLANKETS PROVIDED. PT IN NO DISTRESS. DENIES NEEDS. COLORING AND WATCHING TV.
--- NOTE | 2019-01-20 10:25 | NUR ---
DR VELA AT BEDSIDE FOR EVAL. PT MEDICATED WITH 60MG ORAL LASIX PER EMAR. PLAN TO CONSULT CARDIOLOGY RE ABNORMAL STRESS TEST.
--- NOTE | 2019-01-20 11:49 | NUR ---
PT UP WITH PT. PORTABLE O2 AND NEW WALKER (WITH FRONT WHEELS) PROVIDED.
--- NOTE | 2019-01-20 12:00 | NUR ---
PT BACK TO ROOM. LUNCH PROVIDED. DENIES NEEDS.
--- NOTE | 2019-01-20 12:55 | NUR ---
DR CALIX TO ROOM FOR CONSULT.
--- NOTE | 2019-01-20 13:05 | NUR ---
PER DR CALIX PT IN NEED OF TX FOR ANGIO. PT PREFERS TO GO TO [place].
--- NOTE | 2019-01-20 13:30 | NUR ---
PT RESTING IN POSTION OF COMFORT. BREANA O2 AT 2L PER NC.
--- NOTE | 2019-01-20 15:24 | NUR ---
PT RESTING IN POSITION OF COMFORT. RESP EVEN AND NON-LABORED. 02 SAT 99%
--- NOTE | 2019-01-20 16:22 | NUR ---
PALLIATIVE CARE TO ROOM TO TALK WITH PT.
--- NOTE | 2019-01-20 17:43 | NUR ---
Mrs. Jennings was alone in room and sleeping soundly. She did not awaken to voice or touch. I sat bedside her, held her hand, and prayed for her and her family. I will continue to attempt student success counselor with pt and family in coming days.
--- NOTE | 2019-01-20 18:28 | NUR ---
ATTEMPT TO GAIN NEW IV ACCESS. PT DECLINED TO BE POKED IN AC, HANDS OR WRISTS. ATTEMPT TO LEFT FA. UNSUCCESSFUL X1. PT DECLINED ADDITIONAL ATTEMPTS. AWAITING TRANSPORT.
--- NOTE | 2019-01-20 18:35 | NUR ---
ATTEMPT TO CALL REPORT. UNSUCCESSFUL.
--- NOTE | 2019-01-20 18:45 | NUR ---
REPORT TO EMS. PT ASSISTED ONTO GURNEY TO TO AMB FOR TX TO [facility]. ALL BELONGINGS SENT WITH PT.
--- NOTE | 2019-01-20 19:00 | NUR ---
ATTEMPT TO CALL REPORT TO [facility]. UNSUCCESSFUL.
--- NOTE | 2019-01-20 19:34 | NUR ---
REPORT TO KHUSHI WISEMAN AT [facility].
== END 2019-01-20 18:45 | disposition home or self-care (01) | DRG 291 ==
LOC: ER 21:09 → PCU 01-15 00:18 → SURS 01-15 16:07
PROVIDERS: Emergency Medicine; Internal Medicine; ADMIT Internal Medicine
PROC: 4A12XM4 Monitoring of Cardiac Stress, External Approach (ICD-10-PCS; principal; 2019-01-19)
DX: I13.0 Hypertensive heart and chronic kidney disease with heart failure and stage 1 through stage 4 chronic kidney disease, or unspecified chronic kidney disease (principal); I50.43 Acute on chronic combined systolic (congestive) and diastolic (congestive) heart failure; Z68.41 Body mass index [BMI] 40.0-44.9, adult; I25.110 Atherosclerotic heart disease of native coronary artery with unstable angina pectoris; E11.22 Type 2 diabetes mellitus with diabetic chronic kidney disease; E11.65 Type 2 diabetes mellitus with hyperglycemia; N18.3 Chronic kidney disease, stage 3 (moderate); Z79.4 Long term (current) use of insulin; E66.01 Morbid (severe) obesity due to excess calories; G47.33 Obstructive sleep apnea (adult) (pediatric); E03.9 Hypothyroidism, unspecified; I48.2 Chronic atrial fibrillation; Z79.01 Long term (current) use of anticoagulants; E11.51 Type 2 diabetes mellitus with diabetic peripheral angiopathy without gangrene; E78.5 Hyperlipidemia, unspecified; M79.7 Fibromyalgia; D63.1 Anemia in chronic kidney disease
CPT/HCPCS: 36415; 70450; 71046; 71250; 78452; 80048; 80053; 80069; 82947; 83880; 84443; 84484; 85025; 85027; 85610; 90686; 93005; 93010; 93017; 94762; 97162; 97530; 99285-25; A9500; J0706; J1940; J2405; J2785; J7040

== ENCOUNTER 2019-01-30 23:29 | Emergency (ER) | payer MEDICARE, OTHER ==
[~2019-01-30] VITALS: Ht 167.6 cm; Wt 117.0 kg
[~2019-01-30 23:29] MED LIST changes: +ERYTHROMYCIN 2%; +NYST100000; +PRESERVISION PO; +TRIAMCINOLONE; +[UNRECOGNIZED DRUG - OTHER]
[2019-01-31 00:24] LABS: BASOPHILS ABSOLUTE AUTO 0.05 K/mm3 (0.00-0.23); BASOPHILS PERCENT AUTO 1 % (0-2); EOSINOPHILS ABSOLUTE AUTO 0.35 K/mm3 (0.00-0.68); EOSINOPHILS PERCENT AUTO 5 % (0-6); Hematocrit 37.4 % (33.0-51.0); Hemoglobin 11.3 g/dL (11.5-16.0); IMMATURE GRAN ABSOLUTE AUTO 0.01 K/mm3 (0.00-0.10); IMMATURE GRAN PERCENT AUTO 0 % (0-1); LYMPHOCYTES ABSOLUTE AUTO 1.73 K/mm3 (0.84-5.20); LYMPHOCYTES PERCENT AUTO 22 % (21-46); MONOCYTES ABSOLUTE AUTO 0.86 K/mm3 (0.16-1.47); MONOCYTES PERCENT AUTO 11 % (4-13); Mean Corpuscular HGB 29.6 pg (26.0-34.0); Mean Corpuscular HGB Conc 30.2 g/dL (31.5-36.5); Mean Corpuscular Volume 98 fL (80-100); Mean Platelet Volume 11.7 fL (9.1-12.4); NEUTROPHILS ABSOLUTE AUTO 4.77 K/mm3 (1.96-9.15); NEUTROPHILS PERCENT AUTO 61 % (41-73); Platelet Count 149 K/mm3 (150-400); RDW Coefficient Variation 13.8 % (11.7-14.2); RDW Standard Deviation 49.9 fL (35.1-46.3); Red Blood Cell Count 3.82 M/mm3 (3.80-5.20); White Blood Cell Count 7.77 K/mm3 (4.00-11.30)
[2019-01-31 00:43] LABS: Alanine Aminotransfer (ALT/SGP 23 U/L (12-78); Albumin, Blood 3.1 g/dL (3.4-5.0); Albumin/Globulin Ratio 0.7 (0.8-1.8); Alk Phos 96 U/L (50-136); Anion Gap 5 mmol/L (6-16); Aspartate Aminotrans (AST/SGOT 13 U/L (12-37); Bilirubin, Total 0.5 mg/dL (0.1-1.0); Blood Urea Nitrogen 36 mg/dL (8-24); Bun/Creatinine Ratio 25.4 (12.0-20.0); CO2, Blood 30 mmol/L (21-32); Calcium, Blood 8.4 mg/dL (8.5-10.1); Chloride, Blood 109 mmol/L (98-108); Creatinine, Blood 1.42 mg/dL (0.40-1.00); Globulin, Blood 4.2 g/dL (2.2-4.0); Glomerular Filtration Rate 39 (60-); Glucose, Blood 194 mg/dL (70-99); Potassium, Blood 4.5 mmol/L (3.5-5.5); Sodium, Blood 144 mmol/L (136-145); Total Protein, Blood 7.3 g/dL (6.4-8.2); Troponin I <0.015 ng/mL (0.000-0.040)
[2019-01-31 00:44] LABS: Prothrombin Time Results 41.8 Sec (9.7-11.5)
[2019-01-31 00:48] LABS: International Normalized Ratio 4.52
[2019-02-01] MEDS ORDERED: ONDA4ODT MM (01:23)
== END 2019-01-31 01:36 | disposition home or self-care (01) ==
LOC: ER 23:29
PROVIDERS: Emergency Medicine
DX: I13.0 Hypertensive heart and chronic kidney disease with heart failure and stage 1 through stage 4 chronic kidney disease, or unspecified chronic kidney disease (principal); E11.22 Type 2 diabetes mellitus with diabetic chronic kidney disease; N18.9 Chronic kidney disease, unspecified; I50.9 Heart failure, unspecified; R79.1 Abnormal coagulation profile; I73.9 Peripheral vascular disease, unspecified; I25.2 Old myocardial infarction; E66.01 Morbid (severe) obesity due to excess calories; Z88.1 Allergy status to other antibiotic agents; Z91.048 Other nonmedicinal substance allergy status; Z79.82 Long term (current) use of aspirin; Z79.01 Long term (current) use of anticoagulants; Z79.4 Long term (current) use of insulin; Z79.899 Other long term (current) drug therapy; Z95.1 Presence of aortocoronary bypass graft
CPT/HCPCS: 36415; 71046; 80053; 84484; 85025; 85610; 93005; 93010; 96374; 99284-25; J1940

== ENCOUNTER 2019-05-09 16:40 | Inpatient (IN) | payer MEDICARE, SELFPAY ==
[~2019-05-09] VITALS: Ht 165.1 cm; Wt 111.7 kg
[~2019-05-09 16:40] MED LIST changes: -Humalog100 UNIT/1; +Humalog100 UNIT/1 SC; +LANOXIN125 MCG PO; +OMEP20ER PO; +ONDA4ODT MM
[2019-05-09 17:44] LABS: BASOPHILS ABSOLUTE AUTO 0.06 K/mm3 (0.00-0.23); BASOPHILS PERCENT AUTO 1 % (0-2); EOSINOPHILS ABSOLUTE AUTO 0.02 K/mm3 (0.00-0.68); EOSINOPHILS PERCENT AUTO 0 % (0-6); Hematocrit 40.8 % (33.0-51.0); Hemoglobin 12.2 g/dL (11.5-16.0); IMMATURE GRAN ABSOLUTE AUTO 0.08 K/mm3 (0.00-0.10); IMMATURE GRAN PERCENT AUTO 1 % (0-1); LYMPHOCYTES ABSOLUTE AUTO 1.69 K/mm3 (0.84-5.20); LYMPHOCYTES PERCENT AUTO 18 % (21-46); MONOCYTES PERCENT AUTO 10 % (4-13); Mean Corpuscular HGB 28.9 pg (26.0-34.0); Mean Corpuscular HGB Conc 29.9 g/dL (31.5-36.5); Mean Corpuscular Volume 97 fL (80-100); Mean Platelet Volume 11.6 fL (9.1-12.4); NEUTROPHILS ABSOLUTE AUTO 6.73 K/mm3 (1.96-9.15); NEUTROPHILS PERCENT AUTO 70 % (41-73); NRBC ABSOLUTE 0.02 K/mm3 (0.00-0.02); NRBC Auto 0.2 /100 WBC (0.0-0.2); Platelet Count 143 K/mm3 (150-400); RDW Standard Deviation 49.9 fL (35.1-46.3); Red Blood Cell Count 4.22 M/mm3 (3.80-5.20); White Blood Cell Count 9.58 K/mm3 (4.00-11.30)
[2019-05-09 18:08] LABS: Albumin, Blood 3.2 g/dL (3.4-5.0); Albumin/Globulin Ratio 0.8 (0.8-1.8); Bilirubin, Total 1.1 mg/dL (0.1-1.0); Bun/Creatinine Ratio 26.9 (12.0-20.0); Calcium, Blood 8.5 mg/dL (8.5-10.1); Creatinine, Blood 1.34 mg/dL (0.40-1.00); Globulin, Blood 4.1 g/dL (2.2-4.0); Potassium, Blood 5.8 mmol/L (3.5-5.5); Total Protein, Blood 7.3 g/dL (6.4-8.2); Troponin I 0.127 ng/mL (0.000-0.040)
[2019-05-09 18:54] LABS: International Normalized Ratio 1.93; Prothrombin Time Results 19.3 Sec (9.7-11.5)
[2019-05-09] MEDS ORDERED: FURO40 PO ×2 (19:04)
[2019-05-09] MEDS ORDERED: POTA10T PO (19:08)
[2019-05-09] MEDS ORDERED: PRESERVISION A1 EACH PO (19:09)
[2019-05-09] MEDS ORDERED: TRIDERM454 GM TOP (19:13)
[2019-05-09] MEDS ORDERED: Hydrocortiso453.6 G1 TOP (19:14)
[2019-05-09] MEDS ORDERED: Nystop60 GM TOP (19:15)
[2019-05-09] MEDS ORDERED: ERYTHROMYCIN 2% TOP (19:15)
[2019-05-09] MEDS ORDERED: ONDA4 PO (19:16)
[2019-05-09] MEDS ORDERED: WARF5 PO (19:36)
[2019-05-09] MEDS ORDERED: BASAGLAR K100 UNIT/1 SC (19:38)
--- NOTE | 2019-05-09 22:00 | NUR ---
ADMISSION PT ARRIVES TO U6 FROM ER VIA [facility] AT APPROXIMATELY 2135. CURRENTLY AOX4. VSS. PT AMBULATES WITH ONE PERSON ASSIST TO THE HOSPITAL BED WITH MINIMAL DIFFICULTY. O2 SATS CURRENTLY 95% ON 2L VIA NASAL CANNULA. PT WEARS 2L O2 AT NIGHT ONLY AT BASELINE PER HER REPORT. REPORTING INCREASED DYSPNEA OVER THE LAST FEW DAYS AND INCREASED O2 USAGE AT HOME. LUNG SOUNDS CLEAR IN UPPER LOBES AND DIMINISHED IN THE BASES. BILATERAL LOWER EXTREMITY EDEMA NOTED WITH REDNESS FROM SHINS TO ANKLES THAT IS WARM TO THE TOUCH. REPORTS NUMBNESS AND TINGLING TO BLE'S BUT REPORTS INCREASING PAIN OVER LAST COUPLE OF DAYS TO L LEG THAT RADIATES THROUGHOUT. 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 PT ORIENTED TO ROOM AND CALL LIGHT SYSTEM, EDUCATED ON CALLING FOR ASSISTANCE WITH AMBULATION AND NEEDS. WILL CONTINUE WITH ADMISSION AND MONITORING. BED IN LOW POSITION, CALL LIGHT IN REACH.
[2019-05-10 04:46] LABS: Source, Urine Clean Catch
[2019-05-10 04:56] LABS: Bilirubin, Urine Neg (Neg); Blood, Urine 1+ (Neg); Glucose Qualitative, Urine Neg (Neg); Ketones, Urine Neg (Neg); Leukocyte Esterase, Urine 1+ (Neg); Nitrite, Urine Neg (Neg); Protein, Urine Neg (Neg); Urobilinogen, Urine NORM (Normal)
[2019-05-10 04:59] LABS: Appearance, Urine Clear (Clear); Color, Urine Yellow (P-Yellow)
[2019-05-10 05:02] LABS: Bacteria Rare /hpf; Red Blood Cells, Urine Rare /hpf (0-2); Squamous Epithelial Cells Few /hpf (Few)
[2019-05-10 06:09] LABS: BASOPHILS ABSOLUTE AUTO 0.06 K/mm3 (0.00-0.23); BASOPHILS PERCENT AUTO 1 % (0-2); EOSINOPHILS ABSOLUTE AUTO 0.16 K/mm3 (0.00-0.68); EOSINOPHILS PERCENT AUTO 2 % (0-6); Hemoglobin 11.8 g/dL (11.5-16.0); IMMATURE GRAN ABSOLUTE AUTO 0.04 K/mm3 (0.00-0.10); IMMATURE GRAN PERCENT AUTO 1 % (0-1); LYMPHOCYTES ABSOLUTE AUTO 1.49 K/mm3 (0.84-5.20); LYMPHOCYTES PERCENT AUTO 19 % (21-46); MONOCYTES ABSOLUTE AUTO 0.91 K/mm3 (0.16-1.47); MONOCYTES PERCENT AUTO 12 % (4-13); Mean Corpuscular HGB 28.6 pg (26.0-34.0); Mean Corpuscular HGB Conc 30.3 g/dL (31.5-36.5); Mean Corpuscular Volume 95 fL (80-100); Mean Platelet Volume 11.4 fL (9.1-12.4); NEUTROPHILS ABSOLUTE AUTO 5.14 K/mm3 (1.96-9.15); NEUTROPHILS PERCENT AUTO 66 % (41-73); NRBC ABSOLUTE 0.02 K/mm3 (0.00-0.02); NRBC Auto 0.3 /100 WBC (0.0-0.2); Platelet Count 134 K/mm3 (150-400); RDW Coefficient Variation 14.3 % (11.7-14.2); RDW Standard Deviation 49.4 fL (35.1-46.3); Red Blood Cell Count 4.12 M/mm3 (3.80-5.20)
[2019-05-10 06:20] LABS: International Normalized Ratio 2.08; Prothrombin Time Results 20.6 Sec (9.7-11.5)
[2019-05-10 06:25] LABS: Bun/Creatinine Ratio 28.7 (12.0-20.0); Calcium, Blood 8.4 mg/dL (8.5-10.1); Creatinine, Blood 1.15 mg/dL (0.40-1.00); Potassium, Blood 4.5 mmol/L (3.5-5.5); Troponin I 0.123 ng/mL (0.000-0.040)
--- NOTE | 2019-05-10 06:40 | NUR ---
SHIFT SUMMARY PT HAS REMAINED AOX4 THROUGHOUT SHIFT. VSS. PLEASANT AND COOPERATIVE WITH CARE. PT CONTINUES TO AMBULATE WITH STANDBY ASSIST TO BEDSIDE COMMODE WITH MINIMAL DIFFICULTY. CONTINUES TO REPORT DISCOMFORT TO BLE'S THAT HAS DECREASED SOME WITH DECREASE IN SWELLING, BUT REPORTS THAT IT IS STILL PRESENT. NO OTHER CHANGES NOTED FROM INITIAL ASSESSMENT. WILL CONTINUE TO MONITOR AND REPORT TO ONCOMING SHIFT RN. BED IN LOW POSITION,CALL LIGHT IN REACH.
[2019-05-10] MEDS ORDERED: Humalog100 UNIT/3 SC (18:13)
--- NOTE | 2019-05-10 19:16 | NUR ---
SHIFT SUMMARY PT RESTING IN BED / CHAIR THROUGHOUT THE DAY. VSS. AMBULATING WITH FWW AND SBA TO BEDSIDE COMMODE. ALERT AND ORIENTED X3. C/O 7/10 ALL OVER PAIN, MEDICATED WITH PRN PAIN MEDS. LUNG SOUNDS CLEAR, DIMINISHED THROUGHOUT. AFIB RATE 80s ON TELEMETRY. 2+ PITTING EDEMA TO BILATERAL FEET, 1+ PITTING EDEMA TO BLE. REDNESS NOTED TO BLE, WHICH IS IMPROVING THROUGHOUT THE SHIFT. DAUGHTER IN LAW AT BEDSIDE THIS EVENING. CONCERNS ABOUT ADLs AT HOME AND CONCERNS ABOUT COST OF INSULIN, PREPARATOR CONSULT ORDERED.
[2019-05-11 03:37] LABS: BASOPHILS ABSOLUTE AUTO 0.05 K/mm3 (0.00-0.23); BASOPHILS PERCENT AUTO 1 % (0-2); EOSINOPHILS ABSOLUTE AUTO 0.27 K/mm3 (0.00-0.68); EOSINOPHILS PERCENT AUTO 3 % (0-6); Hematocrit 38.9 % (33.0-51.0); Hemoglobin 12.1 g/dL (11.5-16.0); IMMATURE GRAN ABSOLUTE AUTO 0.03 K/mm3 (0.00-0.10); IMMATURE GRAN PERCENT AUTO 0 % (0-1); LYMPHOCYTES ABSOLUTE AUTO 1.95 K/mm3 (0.84-5.20); LYMPHOCYTES PERCENT AUTO 21 % (21-46); MONOCYTES ABSOLUTE AUTO 1.05 K/mm3 (0.16-1.47); MONOCYTES PERCENT AUTO 11 % (4-13); Mean Corpuscular HGB 28.9 pg (26.0-34.0); Mean Corpuscular HGB Conc 31.1 g/dL (31.5-36.5); Mean Corpuscular Volume 93 fL (80-100); NEUTROPHILS ABSOLUTE AUTO 5.95 K/mm3 (1.96-9.15); NEUTROPHILS PERCENT AUTO 64 % (41-73); Platelet Count 142 K/mm3 (150-400); RDW Standard Deviation 47.8 fL (35.1-46.3); Red Blood Cell Count 4.19 M/mm3 (3.80-5.20)
[2019-05-11 03:51] LABS: International Normalized Ratio 2.22; Prothrombin Time Results 21.9 Sec (9.7-11.5)
[2019-05-11 03:57] LABS: Bun/Creatinine Ratio 25.2 (12.0-20.0); Calcium, Blood 8.6 mg/dL (8.5-10.1); Creatinine, Blood 1.23 mg/dL (0.40-1.00)
--- NOTE | 2019-05-11 06:46 | NUR ---
SHIFT SUMMARY PT HAS REMAINED AOX4 THROUGHOUT SHIFT. VSS. PLEASANT AND COOPERATIVE WITH CARE. PT CONTINUES TO AMBULATE WITH ONE PERSON ASSIST AND FWW TO BEDSIDE COMMODE AND RESTROOM WITH MINIMAL DIFFICULTY. PT REPORTING SLIGHT DIZZINESS WITH SUDDEN MOVEMENT FROM LYING TO SITTING POSITIONS THAT DISIPATES QUICKLY WITH REST. O2 SATS HAVE REMAINED >90% ON RA, PT DENIES DYSPNEA AT REST. SLIGHT DYSPNEA WITH EXERTION NOTED. MEDICATED ONCE FOR PAIN TO R ARM THAT DECREASED WITH ORDERED MEDICATION. NO OTHER CHANGES NOTED FROM INITIAL ASSESSMENT. WILL CONTINUE TO MONITOR AND REPORT TO ONCOMING SHIFT RN. BED IN LOW POSITION, CALL LIGHT IN REACH.
--- NOTE | 2019-05-11 08:10 | NUR ---
AM NOTE. ASSUMED CARE OF PT APROX 0700. PT IS A&Ox4 AND SBA IN THE ROOM W/FWW. PT WAS ADMITTED FOR CHF EXAC. PT IS CURRENTLY DIURESSING WELL. PT IS HYPERTENSIVE BEFORE MORNING MEDICATIONS. OTHER VS STABLE AT THIS TIME. PT DENIES CHEST PAIN/PRESSURE, N/V OR INCREASED SOB. L/S CLEAR T/O WITH FINE CRACKLES NOTED IN THE LEFT LOWER LOBE. PT IS >90% ON RA. CALL LIGHT IN REACH, BED IS LOCKED AND LOW WILL CONTINUE TO MONITOR.
--- NOTE | 2019-05-11 12:11 | NUR ---
PT UPDATE... PT WAS UP IN CHAIR FOR LUNCH, AFTER LUNCH PT WALKED ACROSS THE ROOM TO THE [facility] AND VOIDED. AFTER THIS THE PT C/O OF SEVERE LIGHTEADED/DIZZNESS PT STATED SHE FELT LIKE SHE WAS GOING TO FALL OVER. PT WAS PLACED IN BED. PT'S BP IS 181/77, HR 86. WILL CONTINUE TO MONITOR.
--- NOTE | 2019-05-11 19:56 | NUR ---
PCU NIGHTSHIFT ASSUMED CARE OF PT APPORX. 1899. PT A&O X4. ASSESSMENT COMPLETED. VITAL SIGNS STABLE. PT REPROTS SOME INCREASED PAIN IN BACK AND HIP. UTILIZED RELAXATION TECHNIQUES, REPOSITIONED AND PRN MEDICATIONS PER EMAR. +3 EDEMA IN LEFT FOOT AND +2 NOTED IN RIGHT FOOT, ALONG WITH GENERALIZED EDEMA T/O BODY. PT CURRENLTY LAYING IN BED WITH HEATIGN PAD ON BACK. BED IN LOW POSITION, CALL LIGHT IN REACH AND PT DENIES ANY NEEDS AT THIS TIME.
[2019-05-12 04:28] LABS: International Normalized Ratio 1.86; Prothrombin Time Results 18.6 Sec (9.7-11.5)
--- NOTE | 2019-05-12 05:08 | NUR ---
SHIFT SUMMARY PT PLEASANT, COOPERATIVE AND USES CALL LIGHT APPROPRIATELY. PT REMAINS A&oX4. VITAL SIGNS STABLE AND ASSESSMENT FINDINGS REMAIN UNCHANGED. PT SLEPT INTERMITTENLTY THROUGHOUT THE SHIFT. PT DENIED ANY INCREASED PAIN AFTER INTIAL PAIN AT START OF SHIFT. PT CONTINUED TO UTILIZED THE K-PAD, HEATING PAD TO HELP WITH THE DISCOMFORT. SHE WAS ALSO ABLE TO MAKE USE OF RELAXATION TECHNIQUES AND REPOSITIONING NEEDED. PT ABLE TO AMBULATE TO BEDSIDE COMMODE WITH USE OF FWW NEEDED AND TOLERATED WELL. NO CHANGES IN EDEMA NOTED. PT CURRENTLY IN BED RESTING AT THIS TIME. BED IN LOW POSITION, CALL LIGHT IN REACH AND PT DENIES ANY NEEDS AT THIS TIME. WILL CONTINUE TO MONITOR UNTIL HANDOFF TO DAYSHIFT RN.
[2019-05-12 09:19] LABS: Bun/Creatinine Ratio 22.9 (12.0-20.0); Calcium, Blood 8.4 mg/dL (8.5-10.1); Creatinine, Blood 1.09 mg/dL (0.40-1.00); Magnesium, Blood 2.1 mg/dL (1.6-2.4); Potassium, Blood 3.5 mmol/L (3.5-5.5)
--- NOTE | 2019-05-12 13:47 | NUR ---
PT TRANSFERRED FROM PCU. PT WAS ASSISTED TO BED WITH X 1 ASSIST. PT ORIENTED TO ROOM AND NURSING STAFF WELL CALL LIGHT. PT DENIES ANY PAIN AND IS RESTING COMFORTABLY IN BED.
--- NOTE | 2019-05-12 16:32 | NUR ---
SHIFT SUMMARY: PT TRANSFER FROM PCU HAS BEEN RESTING IN BED AFTER WORKING WITH PT SHORTLY AFTER ARRIVAL. AFTER THERAPY PT C/O PAIN TO RIGHT SHOULDER AND ASKED FOR A HEAT PAD AND PAIN PILL. AFTER APPLYING HEAT PAD AND GIVING PAIN PILL ORDERED, PT HAS BEEN REATING IN BED. PT IS A/O X 4 AND USES CALL LIGHT FOR ASSISTANCE WHEN NEEDED.
[2019-05-13 05:00] LABS: International Normalized Ratio 2.14; Prothrombin Time Results 21.2 Sec (9.7-11.5)
[2019-05-13 05:05] LABS: Bun/Creatinine Ratio 19.5 (12.0-20.0); Calcium, Blood 8.7 mg/dL (8.5-10.1); Creatinine, Blood 1.28 mg/dL (0.40-1.00); Magnesium, Blood 2.1 mg/dL (1.6-2.4); Potassium, Blood 3.4 mmol/L (3.5-5.5)
--- NOTE | 2019-05-13 06:19 | NUR ---
SHIFT SUMMARY PATIENT AWAKE THROUGH OUT ENTIRE NIGHT. STATES SHE DOESNT USUALLY SLEEP AT NIGHT. PATIENT REQUESTED AND WAS PROVIDED WITH PRINTOUT INFORMATION ON ALL HER MEDICATIONS. PATIENT HAS MANY QUESTIONS ABOUT MEDICATIONS THAT HAVE BEEN PRESCRIBED TO HER. PATIENT ALSO HAS QUESTIONS ABOUT THE POSSIBILY OF GOING TO REHAB AFTER HOSPITAL STAY. PATIENT AMBULATING TO BATHROOM WITH GAIT BELT FWW. NO ACUTE EVENTS OVERNIGHT. VSS
[2019-05-13] MEDS ORDERED: Bumetanide2 MG PO ×2 (11:31→11:33)
[2019-05-13] MEDS ORDERED: GABA300 PO (11:34)
[2019-05-13] MEDS ORDERED: METO50ER PO (11:35)
[2019-05-13] MEDS ORDERED: FAMO40 PO (11:35)
[2019-05-13] MEDS ORDERED: POTA10T PO (11:36)
[2019-05-13] MEDS ORDERED: Triamcinolone A15 G3 TOP (11:38)
[2019-05-13] MEDS ORDERED: ACET325 PO (11:39)
--- NOTE | 2019-05-13 16:45 | NUR ---
PT DC TO [facility]. ORDERS SENT WITH CAPULINCARBON COATER MACHINE OPERATOR AND ALL BELONGINGS SENT WITH PT. PT AGREEABLE WITH TRANSFER AND THANKFUL FOR HER STAY AT [facility]. REPORTED CALLED TO [facility].
== END 2019-05-13 16:54 | DRG 291 ==
LOC: ER 16:40 → PCU 21:29 → MEDS 05-12 13:10 → ENPENDDIS 05-13 10:56 → EDPENDDIS 05-13 10:56 → MEDS 05-13 16:54
PROVIDERS: Emergency Medicine; Internal Medicine; Nurse Practitioner Acute Care; ADMIT Internal Medicine
DX: I13.0 Hypertensive heart and chronic kidney disease with heart failure and stage 1 through stage 4 chronic kidney disease, or unspecified chronic kidney disease (principal); J96.01 Acute respiratory failure with hypoxia; I50.43 Acute on chronic combined systolic (congestive) and diastolic (congestive) heart failure; Z68.41 Body mass index [BMI] 40.0-44.9, adult; I48.2 Chronic atrial fibrillation; E11.22 Type 2 diabetes mellitus with diabetic chronic kidney disease; N18.3 Chronic kidney disease, stage 3 (moderate); E87.5 Hyperkalemia; E11.51 Type 2 diabetes mellitus with diabetic peripheral angiopathy without gangrene; E78.5 Hyperlipidemia, unspecified; E66.01 Morbid (severe) obesity due to excess calories; I25.10 Atherosclerotic heart disease of native coronary artery without angina pectoris; M79.7 Fibromyalgia; G89.4 Chronic pain syndrome; I25.2 Old myocardial infarction; Z86.73 Personal history of transient ischemic attack (TIA), and cerebral infarction without residual deficits; Z95.1 Presence of aortocoronary bypass graft; Z88.8 Allergy status to other drugs, medicaments and biological substances; Z91.048 Other nonmedicinal substance allergy status; Z79.01 Long term (current) use of anticoagulants; Z79.82 Long term (current) use of aspirin; Z79.4 Long term (current) use of insulin; Z79.899 Other long term (current) drug therapy
CPT/HCPCS: 36415; 71046; 80048; 80053; 80162; 81001; 82947; 83735; 83880; 84132; 84145; 84484; 85025; 85610; 85730; 87081; 87086; 93005; 93010; 96374; 96375; 96376; 97110; 97162; 97166; 97530; 97535; 99285-25; J0360; J0610; J1940

== ENCOUNTER 2019-05-27 06:37 | Day surgery (SDC) | payer MEDICARE, SELFPAY ==
[~2019-05-27] VITALS: Ht 165.1 cm; Wt 112.0 kg
[~2019-05-27 06:37] MED LIST changes: +ACET325 PO; +BASAGLAR K100 UNIT/1 SC; +Bumetanide2 MG PO; +ERYTHROMYCIN 2% TOP; +FAMO40 PO; +Humalog100 UNIT/3 SC; +Hydrocortiso453.6 G1 TOP; +Nystop60 GM TOP; +ONDA4 PO; +PRESERVISION A1 EACH PO; +TRIDERM454 GM TOP; +Triamcinolone A15 G3 TOP; +WARF5 PO
[2019-05-28] MEDS ORDERED: LOSA25 PO (16:11)
[2019-05-28] MEDS ORDERED: METO100ER PO (16:12)
[2019-05-28] MEDS ORDERED: POTA10T PO (16:13)
[2019-05-28] MEDS ORDERED: Percocet 10-321 EACH PO (16:14)
[2019-05-28] MEDS ORDERED: VIT1CAPS12 PO (16:15)
[2019-05-28] MEDS ORDERED: Bumetanide2 MG PO (16:18)
[2019-05-28] MEDS ORDERED: FAMO20 PO (16:19)
== END 2019-05-27 09:18 | disposition home or self-care (01) ==
LOC: ORSCSDS 06:37
PROVIDERS: Internal Medicine Gastroenterology
PROC: 0DBM8ZX Excision of Descending Colon, Via Natural or Artificial Opening Endoscopic, Diagnostic (ICD-10-PCS; principal; 2019-05-27 08:00)
DX: Z86.010 Personal history of colon polyps (principal); D12.4 Benign neoplasm of descending colon; D17.9 Benign lipomatous neoplasm, unspecified; I10 Essential (primary) hypertension; I25.10 Atherosclerotic heart disease of native coronary artery without angina pectoris; K64.8 Other hemorrhoids; N18.3 Chronic kidney disease, stage 3 (moderate); E66.01 Morbid (severe) obesity due to excess calories; Z68.41 Body mass index [BMI] 40.0-44.9, adult; Z79.899 Other long term (current) drug therapy
CPT/HCPCS: 82947; 88305; J2250; J2405; J2704; J7120

== ENCOUNTER 2019-05-28 14:45 | Emergency (ER) | payer MEDICARE, SELFPAY ==
[~2019-05-28] VITALS: Ht 165.1 cm; Wt 110.2 kg
[2019-05-28 15:18] LABS: BASOPHILS ABSOLUTE AUTO 0.06 K/mm3 (0.00-0.23); BASOPHILS PERCENT AUTO 1 % (0-2); EOSINOPHILS ABSOLUTE AUTO 0.22 K/mm3 (0.00-0.68); EOSINOPHILS PERCENT AUTO 3 % (0-6); Hematocrit 40.5 % (33.0-51.0); Hemoglobin 12.6 g/dL (11.5-16.0); IMMATURE GRAN ABSOLUTE AUTO 0.01 K/mm3 (0.00-0.10); IMMATURE GRAN PERCENT AUTO 0 % (0-1); LYMPHOCYTES PERCENT AUTO 18 % (21-46); MONOCYTES ABSOLUTE AUTO 0.96 K/mm3 (0.16-1.47); MONOCYTES PERCENT AUTO 11 % (4-13); Mean Corpuscular HGB 29.2 pg (26.0-34.0); Mean Corpuscular HGB Conc 31.1 g/dL (31.5-36.5); Mean Corpuscular Volume 94 fL (80-100); NEUTROPHILS ABSOLUTE AUTO 5.69 K/mm3 (1.96-9.15); NEUTROPHILS PERCENT AUTO 67 % (41-73); Platelet Count 170 K/mm3 (150-400); RDW Coefficient Variation 13.9 % (11.7-14.2); RDW Standard Deviation 47.8 fL (35.1-46.3); Red Blood Cell Count 4.32 M/mm3 (3.80-5.20); White Blood Cell Count 8.44 K/mm3 (4.00-11.30)
[2019-05-28 15:48] LABS: Albumin, Blood 3.3 g/dL (3.4-5.0); Albumin/Globulin Ratio 0.7 (0.8-1.8); Bilirubin, Total 1.5 mg/dL (0.1-1.0); Bun/Creatinine Ratio 14.9 (12.0-20.0); Calcium, Blood 8.9 mg/dL (8.5-10.1); Creatinine, Blood 1.01 mg/dL (0.40-1.00); Globulin, Blood 4.5 g/dL (2.2-4.0); Potassium, Blood 3.6 mmol/L (3.5-5.5); Total Protein, Blood 7.8 g/dL (6.4-8.2); Troponin I 0.031 ng/mL (0.000-0.040)
[2019-05-28 16:01] LABS: International Normalized Ratio 1.22; Prothrombin Time Results 12.7 Sec (9.7-11.5)
[2019-05-28] MEDS ORDERED: LOSA25 PO (16:11)
[2019-05-28] MEDS ORDERED: METO100ER PO (16:12)
[2019-05-28] MEDS ORDERED: POTA10T PO (16:13)
[2019-05-28] MEDS ORDERED: Percocet 10-321 EACH PO (16:14)
[2019-05-28] MEDS ORDERED: VIT1CAPS12 PO (16:15)
[2019-05-28 16:17] LABS: Digoxin (Lanoxin) 1.15 ug/mL (0.80-2.00)
[2019-05-28] MEDS ORDERED: Bumetanide2 MG PO (16:18)
[2019-05-28] MEDS ORDERED: FAMO20 PO (16:19)
== END 2019-05-28 19:38 | disposition home or self-care (01) ==
LOC: ER 14:45
PROVIDERS: Emergency Medicine
DX: R07.9 Chest pain, unspecified (principal); Z88.1 Allergy status to other antibiotic agents; Z91.048 Other nonmedicinal substance allergy status; Z79.82 Long term (current) use of aspirin; Z79.4 Long term (current) use of insulin; Z79.899 Other long term (current) drug therapy; E11.9 Type 2 diabetes mellitus without complications; I11.0 Hypertensive heart disease with heart failure; I50.9 Heart failure, unspecified; I25.2 Old myocardial infarction; Z86.73 Personal history of transient ischemic attack (TIA), and cerebral infarction without residual deficits
CPT/HCPCS: 36415; 71046; 80053; 80162; 83880; 84484; 85025; 85610; 93005; 93010; 99285-25

== ENCOUNTER 2019-11-12 02:01 | Emergency (ER) | payer MEDICARE ==
[~2019-11-12] VITALS: Ht 165.1 cm; Wt 112.0 kg
[~2019-11-12 02:01] MED LIST changes: +METO100ER PO
[2019-11-12] MEDS ORDERED: BASAGLAR K100 UNIT/1 SC (02:37)
[2019-11-12 02:48] LABS: BASOPHILS ABSOLUTE AUTO 0.04 K/mm3 (0.00-0.23); BASOPHILS PERCENT AUTO 0 % (0-2); EOSINOPHILS ABSOLUTE AUTO 0.28 K/mm3 (0.00-0.68); EOSINOPHILS PERCENT AUTO 3 % (0-6); Hematocrit 35.2 % (33.0-51.0); Hemoglobin 10.9 g/dL (11.5-16.0); IMMATURE GRAN ABSOLUTE AUTO 0.03 K/mm3 (0.00-0.10); IMMATURE GRAN PERCENT AUTO 0 % (0-1); LYMPHOCYTES ABSOLUTE AUTO 1.64 K/mm3 (0.84-5.20); LYMPHOCYTES PERCENT AUTO 17 % (21-46); MONOCYTES ABSOLUTE AUTO 0.87 K/mm3 (0.16-1.47); MONOCYTES PERCENT AUTO 9 % (4-13); Mean Corpuscular HGB 29.4 pg (26.0-34.0); Mean Corpuscular Volume 95 fL (80-100); Mean Platelet Volume 10.9 fL (9.1-12.4); NEUTROPHILS ABSOLUTE AUTO 6.99 K/mm3 (1.96-9.15); NEUTROPHILS PERCENT AUTO 71 % (41-73); Platelet Count 175 K/mm3 (150-400); RDW Coefficient Variation 14.1 % (11.7-14.2); RDW Standard Deviation 48.9 fL (35.1-46.3); Red Blood Cell Count 3.71 M/mm3 (3.80-5.20); White Blood Cell Count 9.85 K/mm3 (4.00-11.30)
[2019-11-12 03:05] LABS: International Normalized Ratio 2.97; Prothrombin Time Results 29.9 Sec (9.7-11.5)
== END 2019-11-12 10:45 | disposition home or self-care (01) ==
LOC: ER 02:01
PROVIDERS: Emergency Medicine
DX: R04.0 Epistaxis (principal); I11.0 Hypertensive heart disease with heart failure; I50.9 Heart failure, unspecified; E11.9 Type 2 diabetes mellitus without complications; I25.2 Old myocardial infarction; Z86.73 Personal history of transient ischemic attack (TIA), and cerebral infarction without residual deficits; Z88.1 Allergy status to other antibiotic agents; Z91.048 Other nonmedicinal substance allergy status; Z79.82 Long term (current) use of aspirin; Z79.01 Long term (current) use of anticoagulants; Z79.899 Other long term (current) drug therapy; Z79.4 Long term (current) use of insulin
CPT/HCPCS: 30903; 36415; 36430; 85025; 85610; 86850; 86900; 86901; 96374-59; 99284-25; P9059

== ENCOUNTER 2019-12-28 11:55 | Inpatient (IN) | payer MEDICARE ==
[~2019-12-28] VITALS: Ht 165.1 cm; Wt 109.1 kg
[~2019-12-28 11:55] MED LIST changes: -ASPI81CH PO; -METO100ER PO
[2019-12-28] MEDS ORDERED: Acetaminophen650 M1 PO (12:26)
[2019-12-28] MEDS ORDERED: VIT1CAPS12 PO (12:27)
[2019-12-28] MEDS ORDERED: FAMO20 PO (12:28)
[2019-12-28] MEDS ORDERED: HYDROCORTISONE CR TOP (12:31)
[2019-12-28] MEDS ORDERED: WARF5 PO (12:36)
[2019-12-28] MEDS ORDERED: WARF2.5 PO (12:36)
[2019-12-28 13:17] LABS: BASOPHILS ABSOLUTE AUTO 0.03 K/mm3 (0.00-0.23); BASOPHILS PERCENT AUTO 0 % (0-2); EOSINOPHILS PERCENT AUTO 0 % (0-6); Hematocrit 35.8 % (33.0-51.0); Hemoglobin 11.2 g/dL (11.5-16.0); IMMATURE GRAN ABSOLUTE AUTO 0.13 K/mm3 (0.00-0.10); IMMATURE GRAN PERCENT AUTO 1 % (0-1); LYMPHOCYTES ABSOLUTE AUTO 0.69 K/mm3 (0.84-5.20); LYMPHOCYTES PERCENT AUTO 4 % (21-46); MONOCYTES ABSOLUTE AUTO 0.98 K/mm3 (0.16-1.47); MONOCYTES PERCENT AUTO 5 % (4-13); Mean Corpuscular HGB 28.1 pg (26.0-34.0); Mean Corpuscular HGB Conc 31.3 g/dL (31.5-36.5); Mean Corpuscular Volume 90 fL (80-100); Mean Platelet Volume 11.1 fL (9.1-12.4); NEUTROPHILS ABSOLUTE AUTO 18.01 K/mm3 (1.96-9.15); NEUTROPHILS PERCENT AUTO 91 % (41-73); Platelet Count 203 K/mm3 (150-400); RDW Coefficient Variation 13.8 % (11.7-14.2); RDW Standard Deviation 45.1 fL (35.1-46.3); Red Blood Cell Count 3.98 M/mm3 (3.80-5.20); White Blood Cell Count 19.84 K/mm3 (4.00-11.30)
[2019-12-28 13:24] LABS: Source, Urine Clean Catch
[2019-12-28 13:28] LABS: Bilirubin, Urine Neg (Neg); Blood, Urine 5+ (Neg); Glucose Qualitative, Urine 4+ (Neg); Ketones, Urine Neg (Neg); Leukocyte Esterase, Urine Neg (Neg); Nitrite, Urine Neg (Neg); Protein, Urine 3+ (Neg); Specific Gravity, Urine 1.005 (1.003-1.022); Urobilinogen, Urine NORM (Normal)
[2019-12-28 13:35] LABS: Albumin, Blood 3.1 g/dL (3.4-5.0); Albumin/Globulin Ratio 0.6 (0.8-1.8); Bilirubin, Total 0.9 mg/dL (0.1-1.0); Bun/Creatinine Ratio 33.8 (12.0-20.0); Calcium, Blood 8.9 mg/dL (8.5-10.1); Creatinine, Blood 1.3 mg/dL (0.40-1.00); Globulin, Blood 5.2 g/dL (2.2-4.0); Potassium, Blood 3.9 mmol/L (3.5-5.5); Total Protein, Blood 8.3 g/dL (6.4-8.2)
[2019-12-28 13:39] LABS: Prothrombin Time Results 44.3 Sec (9.7-11.5)
[2019-12-28 13:54] LABS: Creatine Kinase MB Index 0.6 (0.0-4.0)
[2019-12-28 14:06] LABS: International Normalized Ratio 4.51
[2019-12-28 14:07] LABS: Appearance, Urine Clear (Clear); Bacteria Few /hpf; Color, Urine Yellow (P-Yellow); Squamous Epithelial Cells Few /hpf (Few); White Blood Cells, Urine 0-2 /hpf (0-5)
--- NOTE | 2019-12-28 17:23 | NUR ---
ADMIT/SUMMARY PT ADMITTED FROM THE ER FOR SEPSIS, PT IS ALERT AND ORIENTED, SLEEPY, PAINFUL WHEN MOVING, SKIN INTACT OTHER THAN RED LE'S BILAT, SPOKE WITH DAUGHTER IN LAW ON THE PHONE, WITH PT PERMISSION, PT ABLE TO USE THE BEDPAN WITH ASSIST, WAITING FOR HOSPITALIST ORDERS AT THIS TIME, WILL CONT TO MONITOR
[2019-12-28] MEDS ORDERED: AMIODARONE HCL200 M1 PO (18:36)
[2019-12-29 03:17] LABS: Hematocrit 30.8 % (33.0-51.0); Hemoglobin 9.4 g/dL (11.5-16.0); Mean Corpuscular HGB 27.8 pg (26.0-34.0); Mean Corpuscular HGB Conc 30.5 g/dL (31.5-36.5); Mean Corpuscular Volume 91 fL (80-100); Mean Platelet Volume 11.2 fL (9.1-12.4); Platelet Count 177 K/mm3 (150-400); RDW Coefficient Variation 14.3 % (11.7-14.2); RDW Standard Deviation 47.6 fL (35.1-46.3); Red Blood Cell Count 3.38 M/mm3 (3.80-5.20); White Blood Cell Count 14.99 K/mm3 (4.00-11.30)
[2019-12-29 03:37] LABS: Prothrombin Time Results 47.6 Sec (9.7-11.5)
[2019-12-29 03:42] LABS: Bun/Creatinine Ratio 30.3 (12.0-20.0); Calcium, Blood 8.2 mg/dL (8.5-10.1); Creatinine, Blood 1.32 mg/dL (0.40-1.00); Potassium, Blood 3.6 mmol/L (3.5-5.5)
[2019-12-29 03:48] LABS: International Normalized Ratio 4.87
--- NOTE | 2019-12-29 07:18 | NUR ---
SHIFT SUMMARY PT IS A 74 Y/O FEMALE, ADMITTED FOR SEPSIS AND ELEVATED COUMADIN. SHE IS A&O X 3, THOUGH WAS MORE LETHARGIC AND TIRED AT THE BEGINNING OF THE SHIFT. NO COMPLAINTS OF PAIN, NAUSEA OR SOB. PT IS ON NS @ 100 ML/HR. VITAL SIGNS STABLE. TELE SHOWED NSR IN THE 60S. PT SLEPT WELL THROUGH THE NIGHT. NO ACUTE CHANGES IN PT CONDITION NOTED. REPORT GIVEN TO ONCOMING RN.
--- NOTE | 2019-12-29 08:56 | NUR ---
Echocardiogram completed.
--- NOTE | 2019-12-29 13:28 | NUR ---
ORTHOSTATIC BP NOT CHECKED D/T PATIENT BEING ON BEDREST FOR THE MOMENT UNTIL INR COMES DOWN AND PT IS WILLING TO WORK WITH HER.
--- NOTE | 2019-12-29 15:36 | NUR ---
SHIFT SUMMARY THE PATIENT HAD AN UNEVENTFUL SHIFT. P/T DECLINED TO EVAL HER TODAY D/T HER INR. PATIENT REMAINS AT BEDREST FOR THE TIME BEING. PATIENT CALLS FOR STAFF APPROPRIATELY. VITALS STABLE. COMPLAINED OF PAIN "ALL OVER" WITH PAIN MEDICATION REQUESTED ONLY ONCE THIS SHIFT; IT SEEMED TO BE INEFFECTIVE. PATIENT CONTINUES ON IV FLUIDS FOR HYDRATION. TROPONINS ARE BUMPED. PATIENT WITHOUT ANY ACUTE CHANGES TO REPORT OF AT THIS TIME.
--- NOTE | 2019-12-29 19:05 | NUR ---
Mrs. Jennings reports a strong xiomara in a loving God. She also has strong support of family and confucianism. Pathologist Assistant making hospital visits to provide prayer. She speaks very highly of her family and told me a bit about her life. She smiles easily and was appreciative of encouragement and prayer. I will remain available to pt and family.
[2019-12-30 05:00] LABS: Hematocrit 32.3 % (33.0-51.0); Hemoglobin 9.6 g/dL (11.5-16.0); Mean Corpuscular HGB 27.8 pg (26.0-34.0); Mean Corpuscular HGB Conc 29.7 g/dL (31.5-36.5); Platelet Count 173 K/mm3 (150-400); RDW Standard Deviation 48.2 fL (35.1-46.3); Red Blood Cell Count 3.45 M/mm3 (3.80-5.20); White Blood Cell Count 11.04 K/mm3 (4.00-11.30)
[2019-12-30 05:04] LABS: Mean Corpuscular Volume 94 fL (80-100)
[2019-12-30 05:20] LABS: International Normalized Ratio 3.02; Prothrombin Time Results 30.4 Sec (9.7-11.5)
[2019-12-30 05:25] LABS: Albumin, Blood 2.5 g/dL (3.4-5.0); Anion Gap 6 mmol/L (6-16); Blood Urea Nitrogen 40 mg/dL (8-24); CO2, Blood 29 mmol/L (21-32); CPK Creatine Kinase 863 U/L (26-193); Calcium, Blood 8.6 mg/dL (8.5-10.1); Chloride, Blood 106 mmol/L (98-108); Creatinine, Blood 1.38 mg/dL (0.40-1.00); Glomerular Filtration Rate 40 (60-); Glucose, Blood 117 mg/dL (70-99); Phosphorus, Blood 2.9 mg/dL (2.5-4.9); Potassium, Blood 3.7 mmol/L (3.5-5.5); Sodium, Blood 141 mmol/L (136-145); Troponin I 0.143 ng/mL (0.000-0.040)
--- NOTE | 2019-12-30 06:09 | NUR ---
MEDICAL ESTHETICIAN SUMMARY PT A/O X4. BEDREST FOR NOW UNTIL INR LEVEL COMES DOWN. DENIES SOB, NAUSEA, CHEST PAIN. PT DID COMPLAIN OF PAIN IN L LOWER RIB/BREAST AREA DUE TO HER FALL AT HOME PRIOR TO ADMISSION. MEDICATED FOR PAIN PER EMAR. PT'S DAUGHTER IN LAW WAS UPDATED ON PT'S CONDITION. VSS. NO ACUTE CHANGES. CALL LIGHT WITHIN REACH.
--- NOTE | 2019-12-30 13:32 | NUR ---
PATIENT HAD ASKED ABOUT USING THE BLOOD SUGAR DEVICE IMPLANTED INTO HER R ARM INPLACE OF FINGER STICKS. DR VELA ASKED THIS QUESTION. DR VELA SAID THAT WAS FINE TO DO. ORDER PLACED.
--- NOTE | 2019-12-30 20:06 | NUR ---
SHIFT SUMMARY THE PATIENT HAS HAD AN UNEVENTFUL DAY. TELE WITHOUT AN UNUSUAL EVENTS. COMPLAINS OF CHRONIC PAIN "ALL OVER" AND TAKES PERCOCET NEEDED. PATIENT HAD AN ECHO YESTERDAY WITH ABNORMAL RESULTS AND WILL BE FOLLOWING UP WITH A LEXISCAN TOMORROW. DR VELA STARTED PATIENT ON 1L IV FLUIDS BECAUSE SHE WAS "DRY". THE PATIENT ASKED THE DOCTOR IF SHE COULD USED HER PERSONAL GLUCOSE MONITOR TO CHECK HER BLOOD SUGARS TO AVOID FINGER PRICKS AND DR VELA GAVE ORDERS TO DO SO. PATIENTS VITALS ARE STABLE. PATIENT HAS STARTED WORKING WITH PT AND OT. REPORT HAS BEEN PASSED ON TO HS RN WHO HAS ASSUMED PATIENT CARE AT THIS TIME.
[2019-12-31 06:30] LABS: Albumin, Blood 2.2 g/dL (3.4-5.0); Anion Gap 4 mmol/L (6-16); Blood Urea Nitrogen 41 mg/dL (8-24); Bun/Creatinine Ratio 29.5 (12.0-20.0); CO2, Blood 27 mmol/L (21-32); CPK Creatine Kinase 544 U/L (26-193); Calcium, Blood 8.2 mg/dL (8.5-10.1); Chloride, Blood 105 mmol/L (98-108); Creatinine, Blood 1.39 mg/dL (0.40-1.00); Glomerular Filtration Rate 40 (60-); Glucose, Blood 127 mg/dL (70-99); Phosphorus, Blood 3.1 mg/dL (2.5-4.9); Potassium, Blood 3.8 mmol/L (3.5-5.5); Sodium, Blood 136 mmol/L (136-145)
[2019-12-31 07:42] LABS: International Normalized Ratio 1.8; Prothrombin Time Results 18.6 Sec (9.7-11.5)
--- NOTE | 2019-12-31 07:56 | NUR ---
PERSONNEL RESEARCH SCIENTIST SUMMARY PT A/O X4. GETS UP WITH 1 ASSIST TO THE COMMODE. DENIES NAUSEA, SOB. MEDICATED FOR PAIN ONCE THIS SHIFT. VSS. NO ACUTE CHANGES. CALL HUERTA WITHIN NORMAL LIMITS.
--- NOTE | 2019-12-31 19:48 | NUR ---
PATIENT HAS HAD AN UNEVENTFUL DAY. SHE IS STILL AWAITING HER LEXISCAN WHICH SHOULD TAKE PLACE TOMORROW MORNING. SHE COMPLAINED OF PAIN ONCE TODAY AND TOOK REQUESTED PAIN MEDICATION. PATIENT REMAINS BRADYCARDIC. SHE HAS BEEN WORKING WITH PT/OT AND GETTING STRONGER WITH EACH WORKOUT. THE PATIENT IS PLEASANT AND COOPERATIVE WITH STAFF AND CALLS APPROPRIATELY FOR NEEDS. REPORT GIVEN TO MENA WISEMAN WHO HAS ASSUMED PATIENT CARE.
--- NOTE | 2020-01-01 05:06 | NUR ---
SHIFT SUMMARY: TEMP 99.1 THIS AM. BRADYCARDIC W/ PULSE 56-58. CONT TELE. PAINFUL W/ ALL MOVEMENT D/T CHRONIC BACK PAIN AND ACUTE L SIDE PAIN S/P RECENT FALL AT HOME. MEDICATED PER EMAR W/ SOME IMPROVEMENT. PT FELT CLAUSTROPHOBIC W/ CPAP FACE MASK AND WOULD LIKE TO TRY NOSE MASK- RT NOTIFIED. UP AMB W/1 SBA AND FWW TO TOILET. CONT W/BLE EDEMA FROM KNEES DOWN. PT HAS BEEN NPO SINCE MIDNIGHT EXCEPT ICE CHIPS AND WATER SIPS IN PREPARATION FOR STRESS TEST TODAY. RECEIVED WARFARIN ORDERED PER EMAR- EDUCATED PT TO NOT DRINK CRANBERRY JUICE WITH THIS MED- PT AGREED AND DISPOSED OF JUICE. HAS SLEPT MINIMALLY TONIGHT DUE TO BEING A LIGHT SLEEPER AND FREQUENT VOIDS. NO ACUTE CHANGES OVERNIGHT. WILL CONT TO MONITOR.
[2020-01-01 06:20] LABS: International Normalized Ratio 1.41; Prothrombin Time Results 14.8 Sec (9.7-11.5)
[2020-01-01 06:32] LABS: Albumin, Blood 2.4 g/dL (3.4-5.0); Anion Gap 5 mmol/L (6-16); Blood Urea Nitrogen 42 mg/dL (8-24); Bun/Creatinine Ratio 30.2 (12.0-20.0); CO2, Blood 30 mmol/L (21-32); Calcium, Blood 8.4 mg/dL (8.5-10.1); Chloride, Blood 104 mmol/L (98-108); Creatinine, Blood 1.39 mg/dL (0.40-1.00); Glomerular Filtration Rate 40 (60-); Glucose, Blood 80 mg/dL (70-99); Phosphorus, Blood 3.3 mg/dL (2.5-4.9); Potassium, Blood 3.7 mmol/L (3.5-5.5); Sodium, Blood 139 mmol/L (136-145)
--- NOTE | 2020-01-01 17:22 | NUR ---
SUMMARY 1ST PART CARDIAC STRESS TEST COMPLETED THIS AM. 2ND PORTION WILL BE TOMORROW, PT IS TO BE NPO X WATER/MEDS 4HR PRIOR TO TEST, NUCMED STATE TO HOLD BF TRAY IN AM, STATE THEY WILL START STRESS TEST @ 0830. PT STATE L HIP PAIN S/P FALL @ HOME, DR VELA ORDER LIDODERM PATCH TO SITE. SHE HAS HAD LOW HR, CARDIOLOGY CONSULTED, HEART MEDS ADJUSTED. TELE STATE HR HAS CONTINUED MERY [address], DR BRAR WAS IN TO SEE PT/FAMILY, ANSWER QUESTIONS, NO FURTHER MED CHANGES @ THIS TIME. PT HAS BEEM UP IN RECLINER ALL DAY, PLEASANT AFFECT.
--- NOTE | 2020-01-02 05:45 | NUR ---
SHIFT SUMMARY: VSS. CONT TO BE BRADYCARDIC W/ RATE 52-59. AMB W FWW AND SBA. STATES SHE IS DISAPPOINTED W/ HER ONGOING INTOLERANCE TO ACTIVITY, SHE WOULD LIKE TO SEE MORE PROGRESS AND STRENGTH IN HERSELF. SLEPT MINIMALLY. HAS REMAINED NPO EXCEPT WATER IN PREPARATION FOR PART 2 OF HER STRESS TEST THIS MORNING. A/OX4. COMMUNICATES NEEDS. NO ACUTE CHANGES OVERNIGHT. WILL CONT TO MONITOR.
[2020-01-02 06:33] LABS: International Normalized Ratio 1.32; Prothrombin Time Results 13.9 Sec (9.7-11.5)
[2020-01-02 07:07] LABS: Albumin, Blood 2.4 g/dL (3.4-5.0); Anion Gap 5 mmol/L (6-16); Blood Urea Nitrogen 39 mg/dL (8-24); Bun/Creatinine Ratio 31.7 (12.0-20.0); CO2, Blood 29 mmol/L (21-32); Calcium, Blood 8.3 mg/dL (8.5-10.1); Chloride, Blood 105 mmol/L (98-108); Creatinine, Blood 1.23 mg/dL (0.40-1.00); Glomerular Filtration Rate 46 (60-); Glucose, Blood 95 mg/dL (70-99); Phosphorus, Blood 2.9 mg/dL (2.5-4.9); Potassium, Blood 3.8 mmol/L (3.5-5.5); Sodium, Blood 139 mmol/L (136-145); Thyroid Stimulating Hormone 0.562 uIU/mL (0.360-4.800)
--- NOTE | 2020-01-02 10:34 | NUR ---
2ND PORTION STRESS TEST BEGAN APPROX 0830. PT PREMEDICATED PERCOCET PRIOR TO NUCMED SCAN/REQUEST, OUT OF ROOM FOR SCAN @ 1000.
--- NOTE | 2020-01-02 19:35 | NUR ---
SUMMARY PT HAD 2ND PORTION OF CARDIAC STRESS TEST TODAY. DR BRAR IN THIS AFTERNOON TO REVIEW RESULTS w PT. DR VELA ASSESS L LOWER LEG REDNESS, SWELLING, ORDER KEFLEX. INR 1.3, DR ADD LOVENOX 100MG BID IN ADDITION TO COUMADIN 5MG. TELE REPORTS CONTINUING BRADYCARDIA 50'S, METOPROLOL HELD THIS AM. PT HAS BEEN PLEASANT T/O DAY. GAVE PRN PERCOCET & PLACED LIDOCAINE PATCH TO L HIP FOR GOOD PAIN RELIEF TODAY. SHE HAS BEEN UP TWICE FOR WALK w TREASURY SPECIALIST USING HER PERSONAL WALKER w SEAT. UP IN RECLINER T/O DAY. GOOD APPETITE. VSS.
--- NOTE | 2020-01-03 05:10 | NUR ---
SHIFT SUMMARY: VSS. AFEB. A/OX4. COMMUNICATES NEEDS. NOT WEARING CPAP DUE TO ANXIETY SURROUNDING MASK. PT STATES SHE DID NOT LIKE THE NOSE MASK EITHER. PRN ANALGESIC ADMINISTERED W/ LITTLE EFFECT PER PT FOR L HIP/SIDE/BACK/SHOULDER PAIN. PT HAS SLEPT INTERMITTENTLY THROUGH THE NIGHT. T/F W 1 ASSIST AND 4WW. CONTINUOUS TELE SHOWING SINUS BRADYCARDIA W/HR IN THE 50'S. L ANTERIOR VELASCO IS ERYTHEMOUS, PT ON KEFLEX. NO ACUTE CHANGES OVERNIGHT. WILL CONT TO MONITOR.
[2020-01-03 05:45] LABS: Hematocrit 30.5 % (33.0-51.0); Hemoglobin 9.3 g/dL (11.5-16.0); Mean Corpuscular HGB 27.5 pg (26.0-34.0); Mean Corpuscular HGB Conc 30.5 g/dL (31.5-36.5); Mean Platelet Volume 10.9 fL (9.1-12.4); Platelet Count 191 K/mm3 (150-400); RDW Standard Deviation 45.6 fL (35.1-46.3); Red Blood Cell Count 3.38 M/mm3 (3.80-5.20); White Blood Cell Count 7.93 K/mm3 (4.00-11.30)
[2020-01-03 05:46] LABS: Mean Corpuscular Volume 90 fL (80-100)
[2020-01-03 05:56] LABS: International Normalized Ratio 1.65; Prothrombin Time Results 17.2 Sec (9.7-11.5)
[2020-01-03 06:08] LABS: Albumin, Blood 2.5 g/dL (3.4-5.0); Anion Gap 3 mmol/L (6-16); Blood Urea Nitrogen 33 mg/dL (8-24); Bun/Creatinine Ratio 26.6 (12.0-20.0); CO2, Blood 32 mmol/L (21-32); Calcium, Blood 8.5 mg/dL (8.5-10.1); Chloride, Blood 103 mmol/L (98-108); Creatinine, Blood 1.24 mg/dL (0.40-1.00); Glomerular Filtration Rate 45 (60-); Glucose, Blood 113 mg/dL (70-99); Phosphorus, Blood 3.2 mg/dL (2.5-4.9); Potassium, Blood 3.8 mmol/L (3.5-5.5); Sodium, Blood 138 mmol/L (136-145)
--- NOTE | 2020-01-03 12:50 | NUR ---
PT AWAITING DC. PT TO BE PICKED UP AT 1530 BY [facility]. PT SHOWERED AND READY FOR HEART MONITOR PLACEMENT. TELE REMOVED AT THIS TIME DUE TO PT DISCHARGING. [facility] [place] NOTIFIED THAT PT IS READY FOR HEART MONITOR PLACEMENT. WILL CONITNUE TO MONITOR.
[2020-01-03] MEDS ORDERED: DOCU100 PO (13:49)
[2020-01-03] MEDS ORDERED: CEPH500 PO (13:49)
[2020-01-03] MEDS ORDERED: SENNA LAXATIVE8.6 MG PO (13:52)
--- NOTE | 2020-01-03 17:56 | NUR ---
SHIFT SUMMARY PT DC DELAYED DO TO INSURANCE AUTH. PT PLACED BACK ON TELE. RUNNING SINUS AT 62 PER JADYN CARR. SLABBING MACHINE OPERATOR TO BE PLACED TOMORROW. PT EXPECTED TO DC TOMORROW WITH [facility]IT[facility]. NO OTHER CHANGES IN ASSESSMENT AT THIS TIME. VSS. WILL CONTINUE TO MONITOR UNTIL TURNOVER IS COMPLETE.
--- NOTE | 2020-01-04 04:27 | NUR ---
SHIFT SUMMARY A/O, ABLE TO MAKE NEEDS KNOWN. COOPERATIVE WITH CARE. CALLS AND ANSWERS QUESTIONS APPROPRIATELY. NO C/O PAIN/DISCOMFORT. TELEMETRY RUNNING SR /c 1ST DEGREE BLOCK IN 60's. UP 1P SBA TO BATHROOM WITH FWW. VSS/AFEBRILE. NO ACUTE CHANGES NOTED OVERNIGHT. APPEARED TO REST OFF AND ON. REMAINED IN CHAIR THROUGHOUT NIGHT. CALL LIGHT AND BELONINGS WITHIN REACH. CHAIR WHEELS LOCKED. WCTM. REPORT TO JORDAN WISEMAN.
[2020-01-04 06:12] LABS: International Normalized Ratio 1.69; Prothrombin Time Results 17.6 Sec (9.7-11.5)
--- NOTE | 2020-01-04 11:53 | NUR ---
[facility] REPORT CALLED TO NURSE, DEL. DENIES FURTHER QUESTIONS AT THIS TIME. PT TO BE PICKED UP AT 1230.
--- NOTE | 2020-01-04 12:44 | NUR ---
PT DISCHARGED. PT DISCHARGE AT 1240. PT IN STABLE CONDITION WITH VSS. PT ZIO HEART MONITOR IN PLACE. [facility] REPORT CALLED TO NURSE. PT WHEELED OUT AND TRANSPORTED BY [facility] TRANSPORTER. BELONGINGS SENT WITH PT.
== END 2020-01-04 12:46 | DRG 640 ==
LOC: ER 11:55 → MEDS 11:56 → ER 16:35 → MEDS 16:35 → ENPENDDIS 01-03 11:49 → MEDS 01-04 12:46
PROVIDERS: Emergency Medicine; Internal Medicine Cardiovascular Disease; ADMIT Internal Medicine
DX: E86.0 Dehydration (principal); I50.33 Acute on chronic diastolic (congestive) heart failure; S22.43XA Multiple fractures of ribs, bilateral, initial encounter for closed fracture; I48.20 Chronic atrial fibrillation, unspecified; M62.82 Rhabdomyolysis; M80.88XA Other osteoporosis with current pathological fracture, vertebra(e), initial encounter for fracture; I13.0 Hypertensive heart and chronic kidney disease with heart failure and stage 1 through stage 4 chronic kidney disease, or unspecified chronic kidney disease; Z68.41 Body mass index [BMI] 40.0-44.9, adult; I95.1 Orthostatic hypotension; E87.2 Acidosis; I25.10 Atherosclerotic heart disease of native coronary artery without angina pectoris; I25.2 Old myocardial infarction; Z95.5 Presence of coronary angioplasty implant and graft; M79.7 Fibromyalgia; Z79.4 Long term (current) use of insulin; G47.33 Obstructive sleep apnea (adult) (pediatric); W18.30XA Fall on same level, unspecified, initial encounter; N18.3 Chronic kidney disease, stage 3 (moderate); Y92.009 Unspecified place in unspecified non-institutional (private) residence as the place of occurrence of the external cause; Z86.73 Personal history of transient ischemic attack (TIA), and cerebral infarction without residual deficits; E66.9 Obesity, unspecified; E03.9 Hypothyroidism, unspecified; E04.1 Nontoxic single thyroid nodule; D72.829 Elevated white blood cell count, unspecified; I25.5 Ischemic cardiomyopathy; Z79.01 Long term (current) use of anticoagulants; E11.51 Type 2 diabetes mellitus with diabetic peripheral angiopathy without gangrene; E11.22 Type 2 diabetes mellitus with diabetic chronic kidney disease; E78.5 Hyperlipidemia, unspecified; R00.1 Bradycardia, unspecified; T44.7X5A Adverse effect of beta-adrenoreceptor antagonists, initial encounter
CPT/HCPCS: 36415; 70450; 71260; 72125; 73502; 73562-LT; 74177; 78452; 80048; 80053; 80069; 81001; 82550; 82553; 82947; 83605; 83735; 84443; 84484; 85025; 85027; 85610; 85730; 86850; 86900; 86901; 87040; 87081; 87430; 93005; 93010; 93017; 93225; 93306; 93880; 94660; 94762; 96361; 96365-59; 97110; 97116; 97163; 97165; 97530; 97535; 99285-25; A9270; A9270-GY; A9500; G0378; J0696; J0706; J1650; J2785; J7030; Q9967

== ENCOUNTER 2020-04-29 16:52 | Emergency (ER) | payer MEDICARE ==
[~2020-04-29] VITALS: Ht 165.1 cm; Wt 113.4 kg
[~2020-04-29 16:52] MED LIST changes: +AMIODARONE HCL200 M1 PO; +Acetaminophen650 M1 PO; +HYDROCORTISONE CR TOP; +SENNA LAXATIVE8.6 MG PO
[2020-04-29] MEDS ORDERED: Roxicodone5 MG PO (19:06)
[2020-06-10] MEDS ORDERED: POTA10T PO (20:42)
[2020-06-20] MEDS ORDERED: LOSA50 PO (14:02)
[2020-06-20] MEDS ORDERED: BUME1 PO (14:02)
== END 2020-04-29 19:20 | disposition home or self-care (01) ==
LOC: ER 16:52
DX: M17.12 Unilateral primary osteoarthritis, left knee (principal); M54.6 Pain in thoracic spine; M54.5 Low back pain; R60.0 Localized edema; Z91.048 Other nonmedicinal substance allergy status; Z88.1 Allergy status to other antibiotic agents; Z88.8 Allergy status to other drugs, medicaments and biological substances; Z79.82 Long term (current) use of aspirin; Z79.899 Other long term (current) drug therapy; Z79.4 Long term (current) use of insulin; Z79.2 Long term (current) use of antibiotics; E11.51 Type 2 diabetes mellitus with diabetic peripheral angiopathy without gangrene; I73.9 Peripheral vascular disease, unspecified; I11.0 Hypertensive heart disease with heart failure; I50.9 Heart failure, unspecified; I25.2 Old myocardial infarction; G47.33 Obstructive sleep apnea (adult) (pediatric); E03.9 Hypothyroidism, unspecified; W19.XXXA Unspecified fall, initial encounter
CPT/HCPCS: 71101; 72070; 73562-LT; 99283-25

== ENCOUNTER 2020-09-01 20:06 | Emergency (ER) | payer MEDICARE ==
[~2020-09-01] VITALS: Ht 165.1 cm; Wt 110.2 kg
[~2020-09-01 20:06] MED LIST changes: -Acetaminophen650 M1 PO; -LEVSOD125 PO; -NITR.4SL SL; +Roxicodone5 MG PO
[2020-09-01] MEDS ORDERED: NITR.4SL SL (21:17)
[2020-09-01] MEDS ORDERED: LOSA50 PO (21:17)
[2020-09-01] MEDS ORDERED: Percocet 10-321 EACH PO (21:18)
[2020-09-01] MEDS ORDERED: POTCHL20ER PO (21:18)
[2020-09-01] MEDS ORDERED: ROSUVASTATIN CA20 MG PO (21:19)
[2020-09-01] MEDS ORDERED: BUME1 PO (21:19)
[2020-09-01] MEDS ORDERED: GABA300 PO (21:20)
[2020-09-01] MEDS ORDERED: Amiodarone HCl200 MG PO (21:22)
[2020-09-01 21:26] LABS: BASOPHILS ABSOLUTE AUTO 0.03 K/mm3 (0.00-0.23); BASOPHILS PERCENT AUTO 0 % (0-2); EOSINOPHILS ABSOLUTE AUTO 0.26 K/mm3 (0.00-0.68); EOSINOPHILS PERCENT AUTO 3 % (0-6); Hematocrit 38.7 % (33.0-51.0); Hemoglobin 12.1 g/dL (11.5-16.0); IMMATURE GRAN ABSOLUTE AUTO 0.02 K/mm3 (0.00-0.10); IMMATURE GRAN PERCENT AUTO 0 % (0-1); LYMPHOCYTES PERCENT AUTO 15 % (21-46); MONOCYTES ABSOLUTE AUTO 0.97 K/mm3 (0.16-1.47); MONOCYTES PERCENT AUTO 9 % (4-13); Mean Corpuscular HGB 28.5 pg (26.0-34.0); Mean Corpuscular HGB Conc 31.3 g/dL (31.5-36.5); Mean Corpuscular Volume 91 fL (80-100); Mean Platelet Volume 11.1 fL (9.1-12.4); NEUTROPHILS ABSOLUTE AUTO 7.61 K/mm3 (1.96-9.15); NEUTROPHILS PERCENT AUTO 73 % (41-73); Platelet Count 157 K/mm3 (150-400); RDW Coefficient Variation 13.9 % (11.7-14.2); RDW Standard Deviation 46.7 fL (35.1-46.3); Red Blood Cell Count 4.24 M/mm3 (3.80-5.20); White Blood Cell Count 10.49 K/mm3 (4.00-11.30)
[2020-09-01] MEDS ORDERED: Aspirin EC81 MG PO (21:27)
[2020-09-01] MEDS ORDERED: PRESERVISION A1 EACH PO (21:29)
[2020-09-01] MEDS ORDERED: VITAMIN D325 MC3 PO (21:31)
[2020-09-01] MEDS ORDERED: EUTHYROX125 MCG PO (21:32)
[2020-09-01] MEDS ORDERED: BASAGLAR K100 UNIT/1 SC (21:33)
[2020-09-01] MEDS ORDERED: FAMO20 PO (21:36)
[2020-09-01] MEDS ORDERED: FERSU300 PO (21:38)
[2020-09-01 21:39] LABS: International Normalized Ratio 1.59; Prothrombin Time Results 16.6 Sec (9.7-11.5)
[2020-09-01] MEDS ORDERED: Acetaminophen650 M1 PO (21:41)
[2020-09-01] MEDS ORDERED: WARF5 PO (21:41)
[2020-09-01 21:45] LABS: C-REACTIVE PROTEIN, EXT RANGE 1.76 mg/dL (0.000-0.300)
[2020-09-01 21:46] LABS: Albumin, Blood 3.3 g/dL (3.4-5.0); Albumin/Globulin Ratio 0.7 (0.8-1.8); Bilirubin, Total 0.5 mg/dL (0.1-1.0); Bun/Creatinine Ratio 29.3 (12.0-20.0); Calcium, Blood 8.9 mg/dL (8.5-10.1); Creatinine, Blood 1.5 mg/dL (0.40-1.00); Globulin, Blood 4.7 g/dL (2.2-4.0)
[2020-09-01] MEDS ORDERED: Bumetanide0.5 MG PO (22:22)
[2020-09-01] MEDS ORDERED: ASCO500 PO (22:27)
[2020-09-01] MEDS ORDERED: HUMALOG100 UNIT/1 SC (22:29)
[2020-09-01] MEDS ORDERED: NYSTOP15 GM TOP (22:30)
[2020-09-01] MEDS ORDERED: ERYTHROMYCIN 2% TOP (22:30)
[2020-09-01] MEDS ORDERED: HYDROCORTISONE TOP (22:32)
[2020-09-01] MEDS ORDERED: TRIAMCINOLON TOP (22:33)
== END 2020-09-02 00:51 | disposition home or self-care (01) ==
LOC: ER 20:06
PROVIDERS: Physician Assistant
DX: M79.604 Pain in right leg (principal); E11.9 Type 2 diabetes mellitus without complications; I11.0 Hypertensive heart disease with heart failure; I50.9 Heart failure, unspecified; I25.10 Atherosclerotic heart disease of native coronary artery without angina pectoris; I48.91 Unspecified atrial fibrillation; E03.9 Hypothyroidism, unspecified; Z86.73 Personal history of transient ischemic attack (TIA), and cerebral infarction without residual deficits; Z91.09 Other allergy status, other than to drugs and biological substances; Z88.8 Allergy status to other drugs, medicaments and biological substances; Z88.1 Allergy status to other antibiotic agents; Z79.01 Long term (current) use of anticoagulants; Z79.4 Long term (current) use of insulin; Z79.82 Long term (current) use of aspirin; Z79.899 Other long term (current) drug therapy
CPT/HCPCS: 36415; 73552; 73700; 80053; 85025; 85610; 85651; 86140; 93926; 93971; 99284-25

== ENCOUNTER → 2020-10-11 | Outpatient (CLI) | payer MEDICARE ==
[~2020-10-11] MED LIST changes: +Acetaminophen650 M1 PO; +Amiodarone HCl200 MG PO; +BUME1 PO; +Bumetanide0.5 MG PO; +EUTHYROX125 MCG PO; +FERSU300 PO; +HUMALOG100 UNIT/1 SC; +HYDROCORTISONE TOP; +LOSA50 PO; +NITR.4SL SL; +NYSTOP15 GM TOP; +ROSUVASTATIN CA20 MG PO; +TRIAMCINOLON TOP; +VITAMIN D325 MC3 PO
[2020-10-13 15:11] LABS: HPV 16 Negative (Negative); HPV 18 Negative (Negative); HPV OTHER HR TYPES Negative (Negative)
== END | disposition home or self-care (01) ==
LOC: LAB 12:28
PROVIDERS: Obstetrics & Gynecology
DX: Z01.419 Encounter for gynecological examination (general) (routine) without abnormal findings (principal)
CPT/HCPCS: 87624; G0123

== ENCOUNTER → 2021-06-12 | Outpatient (CLI) | payer MEDICARE | END | disposition home or self-care (01) | LOC: LAB SHORT 15:25 → LAB 15:25 | DX: R30.9 Painful micturition, unspecified (principal) | CPT/HCPCS: 87086 ==

== ENCOUNTER 2021-11-06 05:15 | Emergency (ER) | payer MEDICARE ==
[~2021-11-06] VITALS: Ht 165.1 cm; Wt 107.0 kg
[2021-11-06] MEDS ORDERED: BRILINTA60 MG PO (05:34)
[2021-11-06] MEDS ORDERED: LOSA25 PO (05:34)
[2021-11-06 05:53] LABS: BASOPHILS ABSOLUTE AUTO 0.04 K/mm3 (0.00-0.23); BASOPHILS PERCENT AUTO 1 % (0-2); EOSINOPHILS ABSOLUTE AUTO 0.23 K/mm3 (0.00-0.68); EOSINOPHILS PERCENT AUTO 3 % (0-6); Hematocrit 41.6 % (33.0-51.0); Hemoglobin 13.3 g/dL (11.5-16.0); IMMATURE GRAN ABSOLUTE AUTO 0.03 K/mm3 (0.00-0.10); IMMATURE GRAN PERCENT AUTO 0 % (0-1); LYMPHOCYTES ABSOLUTE AUTO 1.53 K/mm3 (0.84-5.20); LYMPHOCYTES PERCENT AUTO 18 % (21-46); MONOCYTES ABSOLUTE AUTO 0.75 K/mm3 (0.16-1.47); MONOCYTES PERCENT AUTO 9 % (4-13); Mean Corpuscular HGB 29.7 pg (26.0-34.0); Mean Corpuscular Volume 93 fL (80-100); Mean Platelet Volume 10.5 fL (9.1-12.4); NEUTROPHILS ABSOLUTE AUTO 6.09 K/mm3 (1.96-9.15); NEUTROPHILS PERCENT AUTO 70 % (41-73); Platelet Count 174 K/mm3 (150-400); RDW Coefficient Variation 12.6 % (11.7-14.2); RDW Standard Deviation 43.1 fL (35.1-46.3); Red Blood Cell Count 4.48 M/mm3 (3.80-5.20); White Blood Cell Count 8.67 K/mm3 (4.00-11.30)
[2021-11-06 06:05] LABS: Alanine Aminotransfer (ALT/SGP 26 U/L (12-78); Albumin/Globulin Ratio 0.6 (0.8-1.8); Alk Phos 103 U/L (50-136); Anion Gap 4 mmol/L (6-16); Aspartate Aminotrans (AST/SGOT 14 U/L (12-37); Bilirubin, Total 0.7 mg/dL (0.1-1.0); Blood Urea Nitrogen 13 mg/dL (8-24); Bun/Creatinine Ratio 15.3 (12.0-20.0); CO2, Blood 29 mmol/L (21-32); Calcium, Blood 9.2 mg/dL (8.5-10.1); Chloride, Blood 107 mmol/L (98-108); Creatinine, Blood 0.85 mg/dL (0.40-1.00); Globulin, Blood 4.7 g/dL (2.2-4.0); Glomerular Filtration Rate >60 (60-); Glucose, Blood 231 mg/dL (70-99); Potassium, Blood 4.3 mmol/L (3.5-5.5); Sodium, Blood 140 mmol/L (136-145); Total Protein, Blood 7.7 g/dL (6.4-8.2); Troponin I 0.032 ng/mL (0.000-0.040)
== END 2021-11-06 07:53 | disposition home or self-care (01) ==
LOC: ER 05:15
PROVIDERS: Student in an Organized Health Care Education/Training Program
DX: I11.0 Hypertensive heart disease with heart failure (principal); I50.9 Heart failure, unspecified; E11.9 Type 2 diabetes mellitus without complications; I25.10 Atherosclerotic heart disease of native coronary artery without angina pectoris; I48.91 Unspecified atrial fibrillation; E03.9 Hypothyroidism, unspecified; Z86.73 Personal history of transient ischemic attack (TIA), and cerebral infarction without residual deficits; Z91.048 Other nonmedicinal substance allergy status; Z88.1 Allergy status to other antibiotic agents; Z88.8 Allergy status to other drugs, medicaments and biological substances; Z79.899 Other long term (current) drug therapy; Z79.82 Long term (current) use of aspirin; Z79.4 Long term (current) use of insulin
CPT/HCPCS: 36415; 71045; 80053; 83880; 84484; 85025; 93005; 93010; 96374; 99285-25

== ENCOUNTER 2022-06-11 01:41 | Emergency (ER) | payer MEDICARE ==
[~2022-06-11] VITALS: Ht 165.1 cm; Wt 108.4 kg
[~2022-06-11 01:41] MED LIST changes: +BRILINTA60 MG PO
[2022-06-11] MEDS ORDERED: Robaxin750 MG PO (03:41)
== END 2022-06-11 04:56 | disposition home or self-care (01) ==
LOC: ER 01:41
DX: R07.81 Pleurodynia (principal); S39.012A Strain of muscle, fascia and tendon of lower back, initial encounter; E11.9 Type 2 diabetes mellitus without complications; I11.0 Hypertensive heart disease with heart failure; I50.9 Heart failure, unspecified; I25.10 Atherosclerotic heart disease of native coronary artery without angina pectoris; E03.9 Hypothyroidism, unspecified; Z86.73 Personal history of transient ischemic attack (TIA), and cerebral infarction without residual deficits; Z95.1 Presence of aortocoronary bypass graft; Z95.5 Presence of coronary angioplasty implant and graft; Z88.1 Allergy status to other antibiotic agents; Z88.8 Allergy status to other drugs, medicaments and biological substances; Z91.09 Other allergy status, other than to drugs and biological substances; W19.XXXA Unspecified fall, initial encounter
CPT/HCPCS: 71045; 72100; A9270

== ENCOUNTER → 2022-08-06 | Outpatient (CLI) | payer MEDICARE ==
[~2022-08-06] MED LIST changes: +Robaxin750 MG PO
[2022-08-06 14:01] LABS: Microalb/Creat Ratio UR, Rand 14.418 mg/g (0.000-30.000); Microalbumin, Random Urine 35.9 mg/L (0.000-20.000)
== END ==
LOC: LAB SHORT 10:28 → LAB 10:28
PROVIDERS: Nurse Practitioner Family
DX: E11.9 Type 2 diabetes mellitus without complications (principal)
CPT/HCPCS: 82043; 82570

== ENCOUNTER 2022-12-13 12:53 | Emergency (ER) | payer MEDICARE ==
[~2022-12-13] VITALS: Ht 165.1 cm; Wt 108.0 kg
[2022-12-13 14:18] LABS: EOSINOPHILS ABSOLUTE AUTO 0.26 K/mm3 (0.00-0.68); EOSINOPHILS PERCENT AUTO 2 % (0-6); RDW Coefficient Variation 13.2 % (11.7-14.2)
[2022-12-13 14:26] LABS: BASOPHILS PERCENT AUTO 1 % (0-2); Hematocrit 34.3 % (33.0-51.0); IMMATURE GRAN ABSOLUTE AUTO 0.05 K/mm3 (0.00-0.10); IMMATURE GRAN PERCENT AUTO 0 % (0-1); LYMPHOCYTES ABSOLUTE AUTO 1.17 K/mm3 (0.84-5.20); LYMPHOCYTES PERCENT AUTO 10 % (21-46); MONOCYTES ABSOLUTE AUTO 0.84 K/mm3 (0.16-1.47); MONOCYTES PERCENT AUTO 8 % (4-13); Mean Corpuscular HGB 28.8 pg (26.0-34.0); Mean Corpuscular HGB Conc 32.1 g/dL (31.5-36.5); Mean Corpuscular Volume 90 fL (80-100); Mean Platelet Volume 10.2 fL (9.1-12.4); NEUTROPHILS PERCENT AUTO 79 % (41-73); Platelet Count 252 K/mm3 (150-400); RDW Standard Deviation 43.1 fL (35.1-46.3); Red Blood Cell Count 3.82 M/mm3 (3.80-5.20); White Blood Cell Count 11.22 K/mm3 (4.00-11.30)
[2022-12-13 14:53] LABS: Albumin, Blood 2.8 g/dL (3.4-5.0); Albumin/Globulin Ratio 0.6 (0.8-1.8); Bun/Creatinine Ratio 21.6 (12.0-20.0); Calcium, Blood 9.2 mg/dL (8.5-10.1); Creatinine, Blood 0.92 mg/dL (0.40-1.00); Globulin, Blood 4.9 g/dL (2.2-4.0); Potassium, Blood 4.3 mmol/L (3.5-5.5); Total Protein, Blood 7.7 g/dL (6.4-8.2)
[2022-12-13 15:55] LABS: Influenza A, PCR NEGATIVE (NEGATIVE); Influenza B, PCR NEGATIVE (NEGATIVE); Resp Syncytial Virus, PCR NEGATIVE (NEGATIVE); SARS-Cov-2 (COVID-19) PCR, MMC NEGATIVE (NEGATIVE)
== END 2022-12-13 19:25 | disposition home or self-care (01) ==
LOC: ER 12:53
PROVIDERS: Emergency Medicine
DX: R06.00 Dyspnea, unspecified (principal); M54.9 Dorsalgia, unspecified; M79.7 Fibromyalgia; E11.9 Type 2 diabetes mellitus without complications; I11.0 Hypertensive heart disease with heart failure; I50.9 Heart failure, unspecified; I25.10 Atherosclerotic heart disease of native coronary artery without angina pectoris; E03.9 Hypothyroidism, unspecified; Z86.73 Personal history of transient ischemic attack (TIA), and cerebral infarction without residual deficits; Z91.09 Other allergy status, other than to drugs and biological substances; Z88.1 Allergy status to other antibiotic agents; Z88.8 Allergy status to other drugs, medicaments and biological substances; Z79.82 Long term (current) use of aspirin; Z79.890 Hormone replacement therapy; Z79.4 Long term (current) use of insulin; Z95.1 Presence of aortocoronary bypass graft
CPT/HCPCS: 0241U; 36415; 71260; 80053; 83880; 84484; 85025; A9270; Q9967

== ENCOUNTER 2023-07-23 21:08 | Emergency (ER) | payer MEDICARE ==
[~2023-07-23] VITALS: Ht 165.1 cm; Wt 108.9 kg
[2023-07-24 04:25] VITALS: BP 180/119
== END 2023-07-24 04:26 | disposition home or self-care (01) ==
LOC: ER 21:08
DX: G89.29 Other chronic pain (principal); Z88.1 Allergy status to other antibiotic agents; Z88.8 Allergy status to other drugs, medicaments and biological substances; Z91.048 Other nonmedicinal substance allergy status; Z79.899 Other long term (current) drug therapy; Z79.82 Long term (current) use of aspirin; Z79.4 Long term (current) use of insulin; I25.10 Atherosclerotic heart disease of native coronary artery without angina pectoris; E11.9 Type 2 diabetes mellitus without complications; I13.0 Hypertensive heart and chronic kidney disease with heart failure and stage 1 through stage 4 chronic kidney disease, or unspecified chronic kidney disease; N18.30 Chronic kidney disease, stage 3 unspecified; E78.5 Hyperlipidemia, unspecified; K21.9 Gastro-esophageal reflux disease without esophagitis; I50.30 Unspecified diastolic (congestive) heart failure
CPT/HCPCS: 99284; A9270

== ENCOUNTER → 2023-08-28 | Outpatient (CLI) | payer MEDICARE | END | disposition home or self-care (01) | LOC: LAB 15:16 → LAB SHORT 15:16 | DX: T14.8XXA Other injury of unspecified body region, initial encounter (principal) | CPT/HCPCS: 87070; 87075; 87077; 87147; 87186; 87205 ==

== ENCOUNTER → 2023-09-09 | Outpatient (CLI) | payer MEDICARE ==
[2023-09-09 19:54] LABS: BASOPHILS ABSOLUTE AUTO 0.03 K/mm3 (0.00-0.23); BASOPHILS PERCENT AUTO 0 % (0-2); EOSINOPHILS ABSOLUTE AUTO 0.16 K/mm3 (0.00-0.68); EOSINOPHILS PERCENT AUTO 2 % (0-6); Hematocrit 37.8 % (33.0-51.0); Hemoglobin 11.2 g/dL (11.5-16.0); IMMATURE GRAN ABSOLUTE AUTO 0.03 K/mm3 (0.00-0.10); IMMATURE GRAN PERCENT AUTO 0 % (0-1); LYMPHOCYTES ABSOLUTE AUTO 0.91 K/mm3 (0.84-5.20); LYMPHOCYTES PERCENT AUTO 12 % (21-46); MONOCYTES ABSOLUTE AUTO 0.72 K/mm3 (0.16-1.47); MONOCYTES PERCENT AUTO 10 % (4-13); Mean Corpuscular HGB 29.9 pg (26.0-34.0); Mean Corpuscular HGB Conc 29.6 g/dL (31.5-36.5); Mean Corpuscular Volume 101 fL (80-100); Mean Platelet Volume 11.6 fL (9.1-12.4); NEUTROPHILS ABSOLUTE AUTO 5.63 K/mm3 (1.96-9.15); NEUTROPHILS PERCENT AUTO 75 % (41-73); Platelet Count 148 K/mm3 (150-400); RDW Coefficient Variation 13.6 % (11.7-14.2); RDW Standard Deviation 50.3 fL (35.1-46.3); Red Blood Cell Count 3.75 M/mm3 (3.80-5.20); White Blood Cell Count 7.48 K/mm3 (4.00-11.30)
[2023-09-09 20:15] LABS: Alanine Aminotransfer (ALT/SGP 23 U/L (12-78); Albumin/Globulin Ratio 0.7 (0.8-1.8); Alk Phos 110 U/L (50-136); Anion Gap Unable to Calculate mmol/L (6-16); Aspartate Aminotrans (AST/SGOT 15 U/L (12-37); Bilirubin, Total 0.7 mg/dL (0.1-1.0); Blood Urea Nitrogen 34 mg/dL (8-24); Bun/Creatinine Ratio 25.4 (12.0-20.0); CO2, Blood 36 mmol/L (21-32); Chloride, Blood 109 mmol/L (98-108); Creatinine, Blood 1.34 mg/dL (0.40-1.00); Globulin, Blood 4.3 g/dL (2.2-4.0); Glomerular Filtration Rate 41 (60-); Glucose, Blood 237 mg/dL (70-99); Potassium, Blood 5.3 mmol/L (3.5-5.5); Sodium, Blood 144 mmol/L (136-145); Total Protein, Blood 7.3 g/dL (6.4-8.2)
== END ==
LOC: LAB 14:30 → LAB SHORT 14:30
PROVIDERS: Nurse Practitioner Family
DX: I50.9 Heart failure, unspecified (principal); E11.9 Type 2 diabetes mellitus without complications; R29.6 Repeated falls
CPT/HCPCS: 80053; 83036; 83880; 85025

== ENCOUNTER 2023-10-12 21:07 | Inpatient (IN) | payer MEDICARE ==
[~2023-10-12] VITALS: Ht 165.1 cm; Wt 105.0 kg
[~2023-10-12 21:07] MED LIST changes: +BUME2 PO; -Bumetanide0.5 MG PO; -LOSA50 PO
[2023-10-12 22:16] LABS: Source, Urine Clean Catch
[2023-10-12 22:30] LABS: Bilirubin, Urine Neg (Neg); Blood, Urine 2+ (Neg); Glucose Qualitative, Urine Neg (Neg); Ketones, Urine Neg (Neg); Leukocyte Esterase, Urine Neg (Neg); Nitrite, Urine Neg (Neg); Protein, Urine Neg (Neg); Urobilinogen, Urine NORM (Normal)
[2023-10-12] MEDS ORDERED: Robaxin750 MG (22:33)
[2023-10-12] MEDS ORDERED: POTA10T PO (22:33)
[2023-10-12] MEDS ORDERED: PRESERVISION A1 EAC5 PO (22:34)
[2023-10-12 22:48] LABS: BASOPHILS ABSOLUTE AUTO 0.03 K/mm3 (0.00-0.23); BASOPHILS PERCENT AUTO 0 % (0-2); EOSINOPHILS ABSOLUTE AUTO 0.09 K/mm3 (0.00-0.68); EOSINOPHILS PERCENT AUTO 1 % (0-6); Hematocrit 36.4 % (33.0-51.0); Hemoglobin 10.8 g/dL (11.5-16.0); IMMATURE GRAN ABSOLUTE AUTO 0.02 K/mm3 (0.00-0.10); IMMATURE GRAN PERCENT AUTO 0 % (0-1); LYMPHOCYTES ABSOLUTE AUTO 0.84 K/mm3 (0.84-5.20); LYMPHOCYTES PERCENT AUTO 11 % (21-46); MONOCYTES ABSOLUTE AUTO 0.53 K/mm3 (0.16-1.47); MONOCYTES PERCENT AUTO 7 % (4-13); Mean Corpuscular HGB 29.9 pg (26.0-34.0); Mean Corpuscular HGB Conc 29.7 g/dL (31.5-36.5); Mean Corpuscular Volume 101 fL (80-100); NEUTROPHILS ABSOLUTE AUTO 6.25 K/mm3 (1.96-9.15); NEUTROPHILS PERCENT AUTO 81 % (41-73); Platelet Count 149 K/mm3 (150-400); RDW Coefficient Variation 14.1 % (11.7-14.2); RDW Standard Deviation 51.4 fL (35.1-46.3); Red Blood Cell Count 3.61 M/mm3 (3.80-5.20); White Blood Cell Count 7.76 K/mm3 (4.00-11.30)
[2023-10-12 22:57] LABS: Appearance, Urine Clear (Clear); Bacteria Rare /hpf; Color, Urine Yellow (P-Yellow); Red Blood Cells, Urine 0-2 /hpf (0-2); Squamous Epithelial Cells Few /hpf (Few); White Blood Cells, Urine 0-2 /hpf (0-5)
[2023-10-12 23:19] LABS: Albumin/Globulin Ratio 0.7 (0.8-1.8); Bun/Creatinine Ratio 28.4 (12.0-20.0); Calcium, Blood 8.8 mg/dL (8.5-10.1); Creatinine, Blood 1.16 mg/dL (0.40-1.00); Globulin, Blood 4.5 g/dL (2.2-4.0); Potassium, Blood 5.5 mmol/L (3.5-5.5); Thyroid Stimulating Hormone 0.871 uIU/mL (0.360-4.800); Total Protein, Blood 7.5 g/dL (6.4-8.2)
[2023-10-13 02:22] VITALS: BP 164/67
[2023-10-13] MEDS ORDERED: OXYCODONE-ACET1 EAC2 PO (03:53)
--- NOTE | 2023-10-13 03:57 | NUR ---
SHIFT SUMMARY PT ARRIVED AT 0200 ON UNIT VIA GURNEY. PT ORIENTATED TO UNIT AND ROOM. PT A&OX4 AND ANSWERS QUESTIONS APPROPRIATELY. PT ON 4L OF O2 AND PLACED ON CONTINUOUS TELEMETRY MONITORING AND IS READING AFIB AT 91. PT HAS HX OF AFIB. NO COMPLAINTS OF CHEST PAIN AT THIS TIME. EVENING MEDS ORDERED AND ADMINISTERED. VSS. NO ACUTE EVENTS AT THIS TIME. PT LEFT IN A POSITION OF SAFETY WITH FALL PRECAUTIONS IN PLACE AND CALL LIGHT WITHIN REACH.
[2023-10-13 05:21] LABS: Bun/Creatinine Ratio 27.9 (12.0-20.0); Calcium, Blood 9.1 mg/dL (8.5-10.1); Creatinine, Blood 1.11 mg/dL (0.40-1.00); Potassium, Blood 4.9 mmol/L (3.5-5.5)
[2023-10-13 07:25] VITALS: BP 151/73
[2023-10-13 16:08] VITALS: BP 136/63
--- NOTE | 2023-10-13 16:35 | NUR ---
SHIFT SUMMARY- PT IS A/O, PLESANT AND COOPERATIVE. SHE IS EATING AND DRINKING WELL. SHE HAD A SHOWER THIS SHIFT. SLEPT INTERMITENTLY THROUGHOUT THIS SHIFT. HER BED IS IN THE LOW POSITION AND CALL LIGHT IS WITIN REACH.
[2023-10-13 19:07] VITALS: BP 137/73
[2023-10-14] VITALS: BP 165/68
[2023-10-14 02:31] VITALS: BP 149/70
[2023-10-14 06:21] LABS: BASOPHILS ABSOLUTE AUTO 0.03 K/mm3 (0.00-0.23); BASOPHILS PERCENT AUTO 0 % (0-2); EOSINOPHILS ABSOLUTE AUTO 0.29 K/mm3 (0.00-0.68); EOSINOPHILS PERCENT AUTO 4 % (0-6); Hemoglobin 9.9 g/dL (11.5-16.0); IMMATURE GRAN ABSOLUTE AUTO 0.02 K/mm3 (0.00-0.10); IMMATURE GRAN PERCENT AUTO 0 % (0-1); LYMPHOCYTES ABSOLUTE AUTO 1.39 K/mm3 (0.84-5.20); LYMPHOCYTES PERCENT AUTO 18 % (21-46); MONOCYTES ABSOLUTE AUTO 0.92 K/mm3 (0.16-1.47); MONOCYTES PERCENT AUTO 12 % (4-13); Mean Corpuscular HGB 29.8 pg (26.0-34.0); Mean Corpuscular HGB Conc 29.1 g/dL (31.5-36.5); Mean Corpuscular Volume 102 fL (80-100); Mean Platelet Volume 11.1 fL (9.1-12.4); NEUTROPHILS ABSOLUTE AUTO 5.15 K/mm3 (1.96-9.15); NEUTROPHILS PERCENT AUTO 66 % (41-73); Platelet Count 158 K/mm3 (150-400); RDW Coefficient Variation 14.2 % (11.7-14.2); RDW Standard Deviation 53.9 fL (35.1-46.3); Red Blood Cell Count 3.32 M/mm3 (3.80-5.20)
[2023-10-14 06:52] LABS: Anion Gap Unable to Calculate mmol/L (6-16); Blood Urea Nitrogen 34 mg/dL (8-24); Bun/Creatinine Ratio 24.6 (12.0-20.0); CO2, Blood 41 mmol/L (21-32); Calcium, Blood 8.4 mg/dL (8.5-10.1); Chloride, Blood 100 mmol/L (98-108); Creatinine, Blood 1.38 mg/dL (0.40-1.00); Glomerular Filtration Rate 40 (60-); Glucose, Blood 119 mg/dL (70-99); Potassium, Blood 4.9 mmol/L (3.5-5.5); Sodium, Blood 139 mmol/L (136-145)
[2023-10-14 08:07] VITALS: BP 130/70
[2023-10-14 14:48] VITALS: BP 133/61
[2023-10-14 19:46] VITALS: BP 106/92
--- NOTE | 2023-10-14 20:04 | NUR ---
SHIFT SUMMARY PATIENT WITH NO ACUTE EVENTS DURING SHIFT. BED IN LOW POSITION, CALL LIGHT IN REACH. PATIENT MAKES NEEDS KNOWN.
--- NOTE | 2023-10-15 00:11 | NUR ---
10/14/231999 PT LYING IN BED, REPORTS PAIN ALL OVER OF 9/10, REPORTS SOB WITH EXERTION, ON 4L NC AT 95%. WILL GIVE PAIN MEDS AND EVAL FOR EFFECT. PT ACCIDENTALLY PULLED IV OUT. WILL GET A NEW ONE PLACED INDIGO.TELE IS 68 AFIB, LAST BS WAS 183. PT REPORTS A SORE THROAT, STATES SHE TAKES HONEY OR A COUGH DROP AT HOME, NOTHING ORDERED FOR THAT AT THIS TIME. WILL ASK FOR SOMETHING FROM THE DR. PT REQUESTING SANDWICH AND COFFEE, WILL HAVE BROUGHT TO HER. NO OTHER APPARENT SIGNS OF DISTRESS. CALL LIGHT IS IN REACH. 10/14/23 NEW IV PLACED BY US. PT TOLERATED PROCEDURE WELL. WILL GIVE LASIX NOW. NO OTHER APPARENT SIGNS OF DISTRESS. CALL LIGHT IS IN REACH.
--- NOTE | 2023-10-15 00:15 | NUR ---
PT LYING IN BED, EYES CLOSED, APPEARS TO BE RESTING. BREATHING IS EVEN AND UNLABORED. DAUGHTER IN LAW ASKED IF WE COULD DO A SPOT CHECK ON HER BS JUST TO DOUBLE CHECK, IT WAS 132. NO APPARENT SIGNS OF DISTRESS. CALL LIGHT IS IN REACH.
--- NOTE | 2023-10-15 03:41 | NUR ---
0200 PT LYING IN BED, EYES CLOSED, APPEARS TO BE RESTING. BREATHING IS EVEN, UNLABORED. NO APPARENT SIGNS OF DISTRESS. CALL LIGHT IS IN REACH.
--- NOTE | 2023-10-15 03:41 | NUR ---
PT LYING IN BED, EYES CLOSED, APPEARS TO BE RESTING. BREATHING IS EVEN, UNLABORED. NO APPARENT SIGNS OF DISTRESS. CALL LIGHT IS IN REACH.
[2023-10-15 05:03] VITALS: BP 136/79
--- NOTE | 2023-10-15 05:12 | NUR ---
PT IS AAO X 4, ON 4L NC AT 95%, THEY WEAR 4L NC AT HOME. SOB WITH EXERTION. REPORTED PAIN ALL OVER, GOT PAIN MEDS AT HS. BS WAS 183,132. TELE WAS AFIB AT 68. PT GOT A NEW IV HERS WAS ACCIDENTALLY PULLED OUT DURING A TRIP TO THE BATHROOM RIGHT AT THE END OF DAY SHIT. PT DID SLEEP VERY DEEPLY AFTER GETTING HER PAIN MED AT HS.
--- NOTE | 2023-10-15 06:08 | NUR ---
PT LYING IN BED, EYES CLOSED, APPEARS TO BE RESTING. BREATHING IS EVEN, UNLABORED. NO APPARENT SIGNS OF DISTRESS. CALL LIGHT IS IN REACH. NO OTHER CHANGES THIS SHIFT.
[2023-10-15 06:47] LABS: Anion Gap Unable to Calculate mmol/L (6-16); Blood Urea Nitrogen 40 mg/dL (8-24); Bun/Creatinine Ratio 23.1 (12.0-20.0); CO2, Blood 40 mmol/L (21-32); Calcium, Blood 8.6 mg/dL (8.5-10.1); Chloride, Blood 98 mmol/L (98-108); Creatinine, Blood 1.73 mg/dL (0.40-1.00); Glomerular Filtration Rate 30 (60-); Glucose, Blood 122 mg/dL (70-99); Potassium, Blood 5.6 mmol/L (3.5-5.5); Sodium, Blood 137 mmol/L (136-145)
[2023-10-15 07:36] VITALS: BP 112/48
[2023-10-15 14:15] VITALS: BP 70/50
[2023-10-15 14:24] VITALS: BP 125/93
[2023-10-15 19:42] VITALS: BP 119/51
--- NOTE | 2023-10-15 19:51 | NUR ---
SHIFT SUMMARY PATIENT SLEEPING MOST OF DAY TOO TIRED TO EAT AFTER MORNING OXYCODONE AND OTHER MEDICATIONS THIS MORNING. SHE WOKE UP TO WORK WITH PT BUT ONLY WORKED WITH PT IN THE BED. PUREWICK IN PLACE. BG THIS EVENING BEFORE DINNER WAS 60, ORANGE JUICE, KRISTAL CRACKER AND PEANUT BUTTER GIVEN TO PATIENT. RECHECK OF BG WAS 83. PATIENT DINNER HAD ARRIVED BY THEN. SHE WAS UNABLE TO HOLD HER ICE WATER CUP IN HER RIGHT HAND.SHE ALSO CHOKED A LITTLE ON HER WATER AFTER EATING THE KRISTAL CRACKER AND PEANUT BUTTER. DAUGHTER IN LAW EMILY ARRIVED DURING MEAL AND WAS ABLE TO FEED PATIENT WATER WITHOUT CHOKING WELL THE SOUP AND SOME OF THE PAST AND CARROTS ON HER TRAY, SHE DID NOT TOLERATE A CUP WITH OR WITHOUT A STRAW. DR GUEVARA NOTIFIED. SHE ORDERED AN ADDITIONAL RECHECK OF BG IN 1 HOUR, CT OF HEAD WITHOUT CONTRAST STAT, AND TO HOLD MORNING DOSE OF LONG ACTING INSULIN.
[2023-10-16 03:23] VITALS: BP 126/56
--- NOTE | 2023-10-16 05:21 | NUR ---
SHIFT SUMMERY, PT AT START OF SHIFT VERY LETARGIC AND NOT SEEMING TO BE TRACKING WELL. PTS CBG AT AROUND 1735 WERE 83. WHEN TAKEN BY PROBATE JUDGE AT 194 CBG WAS 83, PT GIVEN REG INSURE PT VERY LETARGIC BUT ABLE TO DDRINK 4 DRINKS OF THE ENSURE THEN SEEMED MOR AWAKE AND REFUSED THE REST OF THE DRINK. DAY SHIFT HAD BEEN TRYING TO GET PT TO EAT PEANUT BUTTER AND GRAM CRACKERS WELL SOME APPLESAUSE. GAVE THAT TO PT. PT TOOK ONE BITE AND SAID IT WAS JOSÉ , PT THEN REQUESTED TURKEY SANDWITCH. PT TOOK OME BIT AND SAID IT WAS GROSSE ALSO. AT 2135 CBG 77. STILL TRING TO FIND SOMETIHING PT WOULD EAT OR DRINK. PT SAID TO GET FRESH GRAM CRACKERS AND NEW PEANUT BUTTER BUT NOT PT PEANUT BUTTER ON THE CRACKERS.PT NOT REALY EATTING ANY ONE THING. PT THEN SAID SHE WOULD TRY A STRING SHEES. PT ATE ABOUT 75% OG IT. THEN REQUESTED A DR AIKEN. TOLD PT ALL THE SODA WE HAD AND PT DID NOT WANT ANY OF IT. PT WANTED TO CALL FAMILY TO GO TO GET SODA. FAMILY MEMBER TOLD PT THEY COULD NOT GET IT AND PT HAD A LITTLE ROOTBEER. CBG RETAKEN AT 0038 AND WAS 150. PT CALLING FREQUENTLY TO HAVE POSITIONED CHANGED PT CO DISCOMFORT WHEN REPOSITIONED AND PILLOWS PLACED AND WITH IN A FEW MIN WATED TO BE REPOSITIONED AGAIN. PT GIVEN 1 PAIN MED. PT MIGHT HAVE SLEPT A COUPLE OF HRS LAST NOC. PT HAD BM LAST NOC SOFT BROWN MED TO LG . CALL LIGHT IN REACH.
[2023-10-16 05:44] LABS: BASOPHILS ABSOLUTE AUTO 0.02 K/mm3 (0.00-0.23); BASOPHILS PERCENT AUTO 0 % (0-2); EOSINOPHILS ABSOLUTE AUTO 0.18 K/mm3 (0.00-0.68); EOSINOPHILS PERCENT AUTO 2 % (0-6); Hemoglobin 9.4 g/dL (11.5-16.0); IMMATURE GRAN ABSOLUTE AUTO 0.02 K/mm3 (0.00-0.10); IMMATURE GRAN PERCENT AUTO 0 % (0-1); LYMPHOCYTES ABSOLUTE AUTO 1.59 K/mm3 (0.84-5.20); LYMPHOCYTES PERCENT AUTO 19 % (21-46); MONOCYTES ABSOLUTE AUTO 1.12 K/mm3 (0.16-1.47); MONOCYTES PERCENT AUTO 13 % (4-13); Mean Corpuscular HGB 29.7 pg (26.0-34.0); Mean Corpuscular HGB Conc 29.4 g/dL (31.5-36.5); Mean Corpuscular Volume 101 fL (80-100); Mean Platelet Volume 11.3 fL (9.1-12.4); NEUTROPHILS ABSOLUTE AUTO 5.54 K/mm3 (1.96-9.15); NEUTROPHILS PERCENT AUTO 66 % (41-73); Platelet Count 143 K/mm3 (150-400); RDW Standard Deviation 51.8 fL (35.1-46.3); Red Blood Cell Count 3.17 M/mm3 (3.80-5.20); White Blood Cell Count 8.47 K/mm3 (4.00-11.30)
[2023-10-16 06:15] LABS: Anion Gap Unable to Calculate mmol/L (6-16); Blood Urea Nitrogen 50 mg/dL (8-24); Bun/Creatinine Ratio 23.9 (12.0-20.0); CO2, Blood 42 mmol/L (21-32); Calcium, Blood 8.7 mg/dL (8.5-10.1); Chloride, Blood 97 mmol/L (98-108); Creatinine, Blood 2.09 mg/dL (0.40-1.00); Glomerular Filtration Rate 24 (60-); Glucose, Blood 76 mg/dL (70-99); Sodium, Blood 138 mmol/L (136-145)
[2023-10-16 07:16] VITALS: BP 128/64
--- NOTE | 2023-10-16 08:26 | NUR ---
pt laying in bed awake watching tv, cbg was 61 this am, racing manager gave cranberry juice and just rechecked, she is now 90 and eating breakfast, a/ox4, cooperative for the most part, lungs are clear in upper [place], dim in right base, on 4 liters 02, which is baseline, no cough noted, hrr, tele in place, running afib per monitor, see strip, 2-3+ edema noted to b/l le, ppp faint, cap refill <3 sec, vs stable, afebrile, iv site is clear and patent, btx4, hypoactive, purwick in place, skin has multiple scabs on abd chest, maew, she states it takes two people to transfer her, and encouraged her to get to chair for meals, but she was a bit whoozy this am. diana, call light in reach.
[2023-10-16 15:19] LABS: PCO2 Arterial 73.3 mmHg (35-45); PO2 Arterial 69.6 mmHg (80-100); pH Blood Arterial 7.35 (7.35-7.45)
--- NOTE | 2023-10-16 15:25 | NUR ---
pt complaining of her stomach hurting, offered her zofran, refused saying it will make it hurt worse. call light in reach.
[2023-10-16 18:07] VITALS: BP 188/80
--- NOTE | 2023-10-16 18:27 | NUR ---
Dr. Solorio was consulted today, he did ABG, co2 in the 70's, so was placed on bipap, not tolerating well, and pulled it off, sats dropped to the 70's, replaced n/c, and left msg for Dr. Becerra. no further changes this shift. call light in reach.
[2023-10-16 19:18] VITALS: BP 147/81
--- NOTE | 2023-10-16 23:22 | NUR ---
1118: PT NOT ABLE TO TOLERATE BIPAP. MULTIPLE ATTEMPTS, BECOMES ANXIOUS. STATES THAT SHE FEELS THAT SHE IS SUFFOCATING. CALL TO PROVIDER R/T LABS AND INTOLERANCE OF TREATMENT PLAN. NEW ORDERS RECEIVED FOR VBG.
[2023-10-17 00:07] LABS: Base Excess Venous 15.9 mmol/L; Bicarbonate Venous 37.4 mmol/L (24.0-30.0); pH Blood Venous 7.43 (7.34-7.37)
--- NOTE | 2023-10-17 01:09 | NUR ---
1300: VBG RESULTS IN WITH CO2 ELEVATED, SEE EMR. CALL TO HOSPITALIST AND ORDERS RECEIVED. PT MEDICATED PER ORDERS, SEE EMR. BIPAP PLACED AT THIS TIME. PT IS TOLERATING. RT CALLED TO CONSULT ON SETTINGS. PT MAINTAINING OXYGEN SATURATION AT 92% AT THIS TIME. NO S/S OF RESPIRATORY DISTRESS, WILL CONTINUE TO MONITOR.
--- NOTE | 2023-10-17 03:40 | NUR ---
1900: ASSUMED CARE OF PT, REPORT RECEIVED FROM DAY SHIFT RN. PT IS LAYING IN BED WITH HOB ELEVATED. SALINE LOCK TO RIGHT ARM PIV, NO S/S OF INFECTION. OXYGEN VIA N/C AT 5LPM. NO ACUTE DISTRESS AT THIS TIME. SEE EMR FOR ROS. ENCOURAGED PT TO USE BIPAP PER ORDERS, EDUCATED ON LABS AND RESPIRATORY EFFECT WITH OXYGEN USE. PT VERBALIZED UNDERSTANDING AND MADE MULTIPLE ATTEMPTS TO WEAR THE BIPAP. REPORTED FEELING LIKE SHE WAS SUFFOCATING. DISCUSSED CONCERNS WITH PROVIDERS AND NEW ORDERS RECEIVED. SEE PREVIOUS NOTES FOR DETAILS. AFTER ADMINISTRATION OF ATIVAN PT IS ABLE TO TOLERATE BIPAP. RT WORKING WITH PT FOR MONITORING WELL THIS RN. PT IS MAINTAINING SATURATIONS AT 92-95% WITH OXYGEN SET AT 9LPM BY RT. RESPIRATIONS AT 16BPM WITHOUT S/S OF DISTRESS. ALL NEEDS ADRESSED AND SAFETY PRECAUTIONS TAKEN. PT RESTING IN BED WITH EYES CLOSED.
[2023-10-17 05:14] VITALS: BP 158/80
--- NOTE | 2023-10-17 05:31 | NUR ---
0530: PT REMOVED BIPAP. REQUESTED TO LEAVE IT OFF FOR A WHILE. PT WAS ABLE TO TOLERATE FOR ABOUT 5.5HRS.
[2023-10-17 06:53] LABS: Albumin, Blood 2.9 g/dL (3.4-5.0); Anion Gap 2 mmol/L (6-16); Blood Urea Nitrogen 53 mg/dL (8-24); Bun/Creatinine Ratio 34.6 (12.0-20.0); CO2, Blood 40 mmol/L (21-32); Calcium, Blood 8.8 mg/dL (8.5-10.1); Chloride, Blood 94 mmol/L (98-108); Creatinine, Blood 1.53 mg/dL (0.40-1.00); Glomerular Filtration Rate 35 (60-); Glucose, Blood 110 mg/dL (70-99); Magnesium, Blood 2.5 mg/dL (1.6-2.4); Phosphorus, Blood 3.9 mg/dL (2.5-4.9); Potassium, Blood 5.1 mmol/L (3.5-5.5); Sodium, Blood 136 mmol/L (136-145)
[2023-10-17 07:16] LABS: Hemoglobin 16.1 g/dL (11.5-16.0)
[2023-10-17 07:58] VITALS: BP 142/87
[2023-10-17 15:21] VITALS: BP 132/62
--- NOTE | 2023-10-17 15:47 | NUR ---
SHIFT SUMMARY PT RESTING QUIETLY AWAKE DURING SHIFT REPORT. PT OFF BIPAP FOR A BIT AT THAT TIME. PER REPORT, PT GIVEN ATIVAN TO TOLERATE. PT UP TO CHAIR FOR ALL MEALS, USING FWW AND 1P ASSIST. PT PLACED ON BIPAP WHEN IN BED. PT UNABLE TO TOLERATE MORE THAN A FEW MOMENTS WITHOUT ATIVAN. PT TO HAVE THORACENTESIS IN AM. ASPIRIN AND LOVENOX TO BE HELD FOR PROCEDURE. PT INCONTINENT OF URINE. PUREWICK IN PLACE TO ASSIST WITH 24 HR URINE THAT WAS SENT. PT MEDICATED FOR C/O PAIN TO ABD. PT'S BIOX 98% ON 4L VIA NC AT START OF SHIFT; O2 DECREASED TO 3L NC WITH BIOX 94-96%. PT TOLERATING BIPAP AT THIS TIME BIOX @ 95-96% WITH 4L BLEED IN. NO S/SX OF DISTRESS NOTED. CALL LT IN REACH.
[2023-10-17 18:40] LABS: Protein, Urine Quantitative <5.0 mg/dL (0.0-11.9)
[2023-10-17 19:15] VITALS: BP 155/83
--- NOTE | 2023-10-18 03:30 | NUR ---
END OF SHIFT SUMMARY PT A&O x2, VSS, AFEBRILE. PT ON 3L VIA NC, OXYGEN SAT AT 94%. PT TOLERATED BIPAP MACHINE OVERNIGHT. PT SLEPT WELL, NO EVENTS TOOK PLACE. FREQUENT SAFETY CHECKS COMPLETED, PT CALLS OUT FOR ASSISTANCE. NO S/SX OF HYPOGLYCEMIA NOTED. PT ON BEDREST, USED THE BEDPAN TO VOID. CALL LIGHT WITHIN REACH, WCTM.
[2023-10-18 04:02] VITALS: BP 137/79
[2023-10-18 06:19] LABS: BASOPHILS ABSOLUTE AUTO 0.05 K/mm3 (0.00-0.23); BASOPHILS PERCENT AUTO 1 % (0-2); EOSINOPHILS ABSOLUTE AUTO 0.21 K/mm3 (0.00-0.68); EOSINOPHILS PERCENT AUTO 3 % (0-6); Hematocrit 34.3 % (33.0-51.0); Hemoglobin 10.5 g/dL (11.5-16.0); IMMATURE GRAN ABSOLUTE AUTO 0.01 K/mm3 (0.00-0.10); IMMATURE GRAN PERCENT AUTO 0 % (0-1); LYMPHOCYTES ABSOLUTE AUTO 1.14 K/mm3 (0.84-5.20); LYMPHOCYTES PERCENT AUTO 15 % (21-46); MONOCYTES ABSOLUTE AUTO 1.05 K/mm3 (0.16-1.47); MONOCYTES PERCENT AUTO 14 % (4-13); Mean Corpuscular HGB 30.1 pg (26.0-34.0); Mean Corpuscular HGB Conc 30.6 g/dL (31.5-36.5); Mean Corpuscular Volume 98 fL (80-100); NEUTROPHILS ABSOLUTE AUTO 5.11 K/mm3 (1.96-9.15); NEUTROPHILS PERCENT AUTO 67 % (41-73); Platelet Count 170 K/mm3 (150-400); RDW Coefficient Variation 14.3 % (11.7-14.2); RDW Standard Deviation 51.7 fL (35.1-46.3); Red Blood Cell Count 3.49 M/mm3 (3.80-5.20); White Blood Cell Count 7.57 K/mm3 (4.00-11.30)
[2023-10-18 06:53] LABS: Albumin, Blood 2.9 g/dL (3.4-5.0); Anion Gap 2 mmol/L (6-16); Blood Urea Nitrogen 58 mg/dL (8-24); Bun/Creatinine Ratio 41.1 (12.0-20.0); CO2, Blood 42 mmol/L (21-32); Calcium, Blood 8.7 mg/dL (8.5-10.1); Chloride, Blood 92 mmol/L (98-108); Creatinine, Blood 1.41 mg/dL (0.40-1.00); Glomerular Filtration Rate 39 (60-); Glucose, Blood 58 mg/dL (70-99); Magnesium, Blood 2.3 mg/dL (1.6-2.4); Phosphorus, Blood 3.7 mg/dL (2.5-4.9); Potassium, Blood 4.4 mmol/L (3.5-5.5); Sodium, Blood 136 mmol/L (136-145)
[2023-10-18 07:38] VITALS: BP 137/86
[2023-10-18 07:46] LABS: International Normalized Ratio 1.11; Prothrombin Time Results 11.6 Sec (9.7-11.5)
[2023-10-18 12:27] LABS: Automated BF WBC Count 0.149 K/mm3 (0-999)
[2023-10-18 12:28] LABS: Body Fluid WBC Count 149 /mm3 (0-999)
[2023-10-18 12:52] LABS: Albumin, Body Fluid 1.5 g/dL; Glucose, Body Fluid 90 mg/dL; Protein, Body Fluid 2.9 g/dL
[2023-10-18 13:01] LABS: Lactate Dehydrogenase, Body Fl 70 U/L
[2023-10-18 13:16] LABS: Appearance, Body Fluid Clear (Clear); Color, Body Fluid Yellow (None-Yellow); RBC Count, Body Fluid 217 /mm3 (0-0)
[2023-10-18 13:21] LABS: Total Cell Count, Body Fluid 100
[2023-10-18 15:02] VITALS: BP 124/74
--- NOTE | 2023-10-18 18:01 | NUR ---
SHIFT SUMMARY; PATEINT RECEIVED THORACENTESIS WITH 800ML TAKEN OFF. CHEST XRAY IMMEDIATELY POST PROCEDURE DID NOT SHOW ANY ISSUES. PATIENT RETURNED TO ROOM AND IS SLOWLY REQUIRING INCREASED O2 DEMAND. SHE IS VERY TIRED AND REFUSES TO WEAR BIPAP. SHE DOES DRIFT OFF TO SLEEP AND SATS DO DROP TO 84-88%. SHE IS NOW ON 8 LITERS AND HOLDING HER SATS AT 92%. HEAD OF BED IS AT 90 TO ENCOURAGE HER TO STAY AWAKE WHILE EATING AND SHE IS REMINDED REPEATEDLY TO TAKE DEEP BREATHS. PATIENT HAS PLEASANT AFFECT AND IS VERY COOPERATIVE WITH CARE DURING DAY. HER VITAL SIGNS ARE STABLE. SHE DOES NOT REQUIRE INSULIN COVERAGE AND HER GLIBERIDE IS HELD FOR LOW CHEM BG'S.
[2023-10-18 19:22] VITALS: BP 145/71
[2023-10-19] VITALS (7 sets, daily range): BP systolic 97–152; BP diastolic 41–67
--- NOTE | 2023-10-19 04:43 | NUR ---
SHIFT SUMMARY ALEN WAS DROWSY ALL SHIFT, AND ORIENTED TO SELF, PERSON, AND SITUAION. PT HAD AN 02 DESATURATION EVENT AT SHIFT CHANGE WHERE SHE DROPPED DOWN TO 70% AIR CONDITIONING INSULATION INSTALLER AND RT WERE IMMEDIATELY CALLED. OUR MAIN STRUGGLE THIS SHIFT WAS KEEPING THE PT'S O2 SATURATION IN A SAFE RANGE. PT WAS ON 15L O2 BLEED INTO HER CPAP AND WAS DROPPING INTO THE 70S INTERMITTENTLY WHILE ASLEEP, AND HOVERING IN THE MID - HIGH 80S, BUT WOULD COME UP INTO THE LOW 90'S WHEN I WOKE HER UP. RT WAS MADE AWARE AT THE START OF SHIFT, AND MADE SEVERAL ADJUSTMENTS TO HER CPAP. FINALLY AROUND 0130 EM WAS ABLE TO FIND SETTINGS AND A MASK THAT RESOLVED THE ISSUE. 02 BLEED IN WAS DROPPED TO 9L AND PT'S 02 SATS HAVE REMAINED IN THE MID 90'S SINCE. NO OTHER ACUTE EVENTS, PTS AM B/P IS SOFTER THAN HER PREVIOUS B/P'S WILL REASSESS AND CONTINUE TO MONITOR.
[2023-10-19 06:03] LABS: Hematocrit 33.5 % (33.0-51.0)
[2023-10-19 06:32] LABS: Magnesium, Blood 2.3 mg/dL (1.6-2.4)
[2023-10-19 06:35] LABS: Anion Gap Unable to Calculate mmol/L (6-16); Blood Urea Nitrogen 62 mg/dL (8-24); Bun/Creatinine Ratio 37.8 (12.0-20.0); Calcium, Blood 8.6 mg/dL (8.5-10.1); Chloride, Blood 90 mmol/L (98-108); Creatinine, Blood 1.64 mg/dL (0.40-1.00); Glomerular Filtration Rate 32 (60-); Glucose, Blood 91 mg/dL (70-99); Phosphorus, Blood 3.7 mg/dL (2.5-4.9); Potassium, Blood 4.9 mmol/L (3.5-5.5); Sodium, Blood 136 mmol/L (136-145)
[2023-10-19 06:37] LABS: CO2, Blood >45 mmol/L (21-32)
[2023-10-19 07:32] LABS: PCO2 Arterial 80.2 mmHg (35-45); PO2 Arterial 66.7 mmHg (80-100); pH Blood Arterial 7.38 (7.35-7.45)
--- NOTE | 2023-10-19 14:39 | NUR ---
Assumed care at 1128. Report received from Med floor RN. Pt arrived to ICU on high flow NC at 7 L/min. Pt alert and oriented. C/o pain in back and both feet. Pt calm and cooperative with care. No acute needs at time of transfer.
--- NOTE | 2023-10-19 18:07 | NUR ---
Pt transferred to PCU 20 at approximately 1645. Report given to HOSPICE VOLUNTEER. Pt on high flow 02 at 8 L/min during transport. All personal belongings sent with patient to new room. No acute needs at time of transfer.
--- NOTE | 2023-10-19 18:42 | NUR ---
PT TRANSFERED AT 1646 THIS EVENING/END OF SHIFT SUMMARY PT IS A&OX4, AND PATTERN STORAGE CLERK HER NEEDS KWOWN. SHE IS VERY PAINFUL WITH ANY MOVEMENT. ON TELE SHE HAS BEEN AFIB 70'S-80'S. SHE CAME OVER ON 8L HFNC. 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 SHE GETS ANXIOUS ON THE MASK, BUT CAN BE TALKED TO AND IS COOPERATIVE. PT DENIES ANY SOB AT REST ON HFNC. WHEN LAYING FLAT SHE DOES HAVE SOME SOB. SHE WAS INC OF URINE, SO I SET UP A PURWICK TO HELP MEASURE ACCURATE I&O'S. NO ACCUTE EVENTS IN THE TIME IN PCU. SEE NOTES FOR ANY UPDATES.
--- NOTE | 2023-10-19 21:35 | NUR ---
ASSUMPTION OF CARE AFTER RECEIVING REPORT FROM KHUSHI RN, THIS RN ASSUMED CARE AT APPROX 1915. PATIENT LETHARGIC, IS ALERT AND ORIENTED X4. EXPERIENCES PERIODS OF INCREASED ANXIETY, ESPECIALLY IN REGARDS TO USE OF AVAPS MASK. PRN ANXIETY MEDICATION IN PLACE. TELEMETRY SHOWING AFIB 70's. DENIES CHEST PAIN OR PRESSURE. BP STABLE. IS ON AVAPS 10/12 35% TOLERATED. ALTERNATING BETWEEN AVAPS AND 8L VIA HI FLOW NASAL CANNULA. IS TACHYPNEIC AT REST, RR 22-28. 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 REPOSITIONING REGULARLY. IS INCONTINENT OF URINE AND STOOL. PUREWICK AND ATTENDS IN PLACE, CHANGING PRN. CALL LIGHT IN REACH.
[2023-10-20 03:37] VITALS: BP 129/59
[2023-10-20 04:02] LABS: BASOPHILS ABSOLUTE AUTO 0.02 K/mm3 (0.00-0.23); BASOPHILS PERCENT AUTO 0 % (0-2); EOSINOPHILS ABSOLUTE AUTO 0.25 K/mm3 (0.00-0.68); EOSINOPHILS PERCENT AUTO 3 % (0-6); Hematocrit 29.8 % (33.0-51.0); Hemoglobin 9.1 g/dL (11.5-16.0); IMMATURE GRAN ABSOLUTE AUTO 0.02 K/mm3 (0.00-0.10); IMMATURE GRAN PERCENT AUTO 0 % (0-1); LYMPHOCYTES ABSOLUTE AUTO 1.12 K/mm3 (0.84-5.20); LYMPHOCYTES PERCENT AUTO 14 % (21-46); MONOCYTES ABSOLUTE AUTO 1.32 K/mm3 (0.16-1.47); MONOCYTES PERCENT AUTO 17 % (4-13); Mean Corpuscular HGB 30.3 pg (26.0-34.0); Mean Corpuscular HGB Conc 30.5 g/dL (31.5-36.5); Mean Corpuscular Volume 99 fL (80-100); Mean Platelet Volume 11.3 fL (9.1-12.4); NEUTROPHILS ABSOLUTE AUTO 5.21 K/mm3 (1.96-9.15); NEUTROPHILS PERCENT AUTO 66 % (41-73); Platelet Count 139 K/mm3 (150-400); RDW Coefficient Variation 14.3 % (11.7-14.2); RDW Standard Deviation 51.8 fL (35.1-46.3); White Blood Cell Count 7.94 K/mm3 (4.00-11.30)
[2023-10-20 04:11] LABS: Magnesium, Blood 2.2 mg/dL (1.6-2.4)
[2023-10-20 04:14] LABS: Anion Gap Unable to Calculate mmol/L (6-16); Blood Urea Nitrogen 72 mg/dL (8-24); Bun/Creatinine Ratio 38.5 (12.0-20.0); CO2, Blood >45 mmol/L (21-32); Calcium, Blood 8.6 mg/dL (8.5-10.1); Chloride, Blood 89 mmol/L (98-108); Creatinine, Blood 1.87 mg/dL (0.40-1.00); Glomerular Filtration Rate 28 (60-); Glucose, Blood 162 mg/dL (70-99); Potassium, Blood 4.5 mmol/L (3.5-5.5); Sodium, Blood 136 mmol/L (136-145)
--- NOTE | 2023-10-20 04:22 | NUR ---
THIS RN RECEIVED CALL FROM HEMATOLOGY REGARDING A CRITICAL LAB VALUE, CO2 >45. NO CHANGE IN PATIENT CONDITION NOTED. IS CURRENTLY RESTING WITH AVAP MASK IN PLACE. MD FLORES CONTACTED, NO NEW ORDERS RECEIVED.
--- NOTE | 2023-10-20 06:04 | NUR ---
SHIFT SUMMARY NO ACUTE CHANGES SINCE PREVIOUS NOTES. PATIENT SLEPT THROUGHOUT SHIFT, EASILY AROUSABLE TO VERBAL STIMULI. ABLE TO TOLERATE WEARING AVAP MASK FOR MAJORITY OF THE NIGHT WITHOUT REQUIRING PRN MEDICATION FOR ANXIETY. APPEARS MUCH MORE ALERT THIS MORNING. TELEMETRY SHOWING AFIB 60's. BP STABLE. DENIES CHEST PAIN OR PRESSURE. AVAP SETTINGS 10/12 35%, SATS >92%. ABLE TO TOLERATE 8L VIA HI FLOW NASAL CANNULA DURING BREAKS. TACHYPNEIC AT REST. PUREWICK AND ATTENDS IN PLACE, CHANGING PRN TO KEEP C/D/I. VOIDING. NO BM THIS SHIFT. REPOSITIONING IN BED TOLERATED, 2 PERSON ASSIST. CALL LIGHT IN REACH. WILL REPORT TO ONCOMING RN.
[2023-10-20 07:18] VITALS: BP 122/67
--- NOTE | 2023-10-20 07:43 | NUR ---
AM NOTE Pt alert, oriented x4; cooperative with care. Reports anxiety regarding the bipap. Pt repositioned, will continue q2. Pt reports chronic body aches, will continue to monitor. Pt denies chest pain/pressure, sob, nausea, dizziness and numb/tingling. Spo2 >90%, pt recently titrated down to 4 l o2 via nc, ls clear, dim bases, breathing even and unlabored at this time. Tele afib 70's, bp wnl. Edema noted to ble. Abd firm, tender on palpation, with hyperactive bt noted t/o. Other vss. Will conitnue to monitor.
[2023-10-20 09:19] LABS: Base Excess Venous 24.3 mmol/L; Bicarbonate Venous 45.5 mmol/L (24.0-30.0); PCO2 Venous 73.4 mmHg (38-42); pH Blood Venous 7.43 (7.34-7.37)
[2023-10-20 17:04] VITALS: BP 149/62
--- NOTE | 2023-10-20 18:30 | NUR ---
Shift Summary Pt went on bipap for approx 20 minutes this am and refused to wear it. Pt got up to chair and started to become lethargic, placed bipap and has worn for several hours, took off for dinner. Vss. No other acute changes noted. Will continue to monitor.
[2023-10-20 21:06] VITALS: BP 142/61
--- NOTE | 2023-10-20 21:30 | NUR ---
ASSUMPTION OF CARE AFTER RECEIVING REPORT FROM MARILYN WISEMAN, THIS RN ASSUMED CARE AT APPROX 1915. PATIENT ALERT, RESTING IN BED WATCHING TV. IS ALERT AND ORIENTED X4. EXPERIENCES EPISODES OF INCREASED ANXIETY, MEDICATED PER EMAR WITH PO ATARAX. REPORTED RELIEF, ABLE TO TOLERATE USE OF AVAP MASK. TELEMETRY SHOWING AFIB 90's DURING INITIAL ENCOUNTER. BP ELEVATED, SBP 140's. PO SCHEDULED DOSE OF METOPROLOL ADMINISTERED. TELEMETRY SHOWING AFIB 60's-70's. BP STABLE, SBP 130's. DENIES CHEST PAIN OR PRESSURE. IS ON 4L VIA NASAL CANNULA WHEN OFF OF AVAPS. AVAP SETTINGS 10/12 35%, SATS >92%. IS A TWO PERSON ASSIST IN ROOM. INCONTINENT OF URINE, PUREWICK AND ATTENDS IN PLACE. CHANGING PRN TO KEEP C/D/I. CALL LIGHT IN REACH.
[2023-10-20 23:34] VITALS: BP 138/62
[2023-10-21 05:08] VITALS: BP 151/85
[2023-10-21 05:19] LABS: BASOPHILS ABSOLUTE AUTO 0.03 K/mm3 (0.00-0.23); BASOPHILS PERCENT AUTO 0 % (0-2); EOSINOPHILS ABSOLUTE AUTO 0.27 K/mm3 (0.00-0.68); EOSINOPHILS PERCENT AUTO 3 % (0-6); Hematocrit 32.3 % (33.0-51.0); Hemoglobin 9.8 g/dL (11.5-16.0); IMMATURE GRAN ABSOLUTE AUTO 0.02 K/mm3 (0.00-0.10); IMMATURE GRAN PERCENT AUTO 0 % (0-1); LYMPHOCYTES ABSOLUTE AUTO 1.15 K/mm3 (0.84-5.20); LYMPHOCYTES PERCENT AUTO 15 % (21-46); MONOCYTES ABSOLUTE AUTO 1.22 K/mm3 (0.16-1.47); MONOCYTES PERCENT AUTO 15 % (4-13); Mean Corpuscular HGB 30.2 pg (26.0-34.0); Mean Corpuscular HGB Conc 30.3 g/dL (31.5-36.5); Mean Corpuscular Volume 99 fL (80-100); Mean Platelet Volume 11.1 fL (9.1-12.4); NEUTROPHILS ABSOLUTE AUTO 5.24 K/mm3 (1.96-9.15); NEUTROPHILS PERCENT AUTO 66 % (41-73); Platelet Count 138 K/mm3 (150-400); RDW Coefficient Variation 14.4 % (11.7-14.2); RDW Standard Deviation 52.2 fL (35.1-46.3); Red Blood Cell Count 3.25 M/mm3 (3.80-5.20); White Blood Cell Count 7.93 K/mm3 (4.00-11.30)
--- NOTE | 2023-10-21 05:31 | NUR ---
SHIFT SUMMARY NO ACUTE CHANGES SINCE ASSUMPTION OF CARE NOTE. PATIENT TOLERATED AVAPS MASK THROUGHOUT NIGHT, SETTINGS REMAIN THE SAME. SLEPT THROUGHOUT SHIFT, EASILY AROUSABLE TO VERBAL STIMULI. TELEMETRY SHOWING AFIB 60's. BP STABLE. FREQUENT LARGE INCONTINENT VOIDS, DIFFICULT PUREWICK PLACEMENT. CHANGING ATTENDS NEEDED TO KEEP C/D/I. NO BM THIS SHIFT. REPOSITIONING IN BED TOLERATED. CALL LIGHT IN REACH. WILL REPORT TO ONCOMING RN.
[2023-10-21 06:03] LABS: Albumin, Blood 3.1 g/dL (3.4-5.0); Blood Urea Nitrogen 79 mg/dL (8-24); Bun/Creatinine Ratio 41.8 (12.0-20.0); Calcium, Blood 9.1 mg/dL (8.5-10.1); Chloride, Blood 87 mmol/L (98-108); Creatinine, Blood 1.89 mg/dL (0.40-1.00); Glomerular Filtration Rate 27 (60-); Glucose, Blood 104 mg/dL (70-99); Phosphorus, Blood 2.9 mg/dL (2.5-4.9); Sodium, Blood 138 mmol/L (136-145)
[2023-10-21 06:04] LABS: Anion Gap Unable to Calculate mmol/L (6-16)
[2023-10-21 06:31] LABS: CO2, Blood >45 mmol/L (21-32)
[2023-10-21 07:24] VITALS: BP 150/70
--- NOTE | 2023-10-21 09:45 | NUR ---
AM NOTE PT alert, oriented x3; cooperative with care, reports anxious regarding wearing bipap, medicated with plans to place bipap shortly. Pt reports chronic pain, medicated per emar. Pt sob with activity, 5l o2 via nc while eating, placed back on bipap avaps setting with epap 10, 35%. Tele afib 70's. Abd firm, tender, +bt t/o. Other vss. Pt educated on the nescessity for bipap and the need to wear it more then a few minutes. Will continue to monitor
[2023-10-21 12:10] VITALS: BP 142/52
[2023-10-21 16:26] VITALS: BP 136/65
--- NOTE | 2023-10-21 18:27 | NUR ---
Shift Summary Pt wore bipap this am for approx 1.5 hours. Up in chair for lunch, back in bed by 3pm. Pt more alert today then yesterday. Other vss. No other acute changes noted. Will continue to monitor.
[2023-10-21 19:48] VITALS: BP 150/53
--- NOTE | 2023-10-21 23:13 | NUR ---
ASSUMPTION OF CARE AFTER RECEIVING REPORT FROM MARILYN WISEMAN, THIS RN ASSUMED CARE AT APPROX 1915. PATIENT ALERT, LYING IN BED WATCHING TV DURING INITIAL ENCOUNTER OF CARE. TELEMETRY SHOWING AFIB 80's. BP STABLE. SINCE METOPROLOL ADMINISTRATION HEART RATE HAS DECREASED TO 50's-60's WHILE PATIENT SLEEPING. REPORTING NAUSEA/ANXIETY IN REGARDS TO USE OF AVAPS. MEDICATED PER EMAR W/ ATARAX, ZOFRAN. REPORTED RELIEF. REPORTING 05/12 PAIN "ALL OVER." MEDICATED PER EMAR W/ RELIEF. IS CURRENTLY WEARING AVAPS MASK 08/14 35%, SATS >92%. RT TO BEDSIDE TO CHANGE MASK TO PERSONAL AT HOME CPAP MASK. ON 4L VIA NASAL CANNULA WHEN OFF OF AVAPS. IS INCONTINENT OF URINE. PUREWICK IN PLACE, DRAINING YELLOW URINE TO SUCTION. ATTENDS IN PLACE, CHANGING PRN TO KEEP C/D/I. CALL LIGHT IN REACH.
[2023-10-21 23:31] VITALS: BP 134/69
[2023-10-22 03:55] VITALS: BP 137/58
[2023-10-22 04:03] LABS: BASOPHILS ABSOLUTE AUTO 0.04 K/mm3 (0.00-0.23); BASOPHILS PERCENT AUTO 1 % (0-2); EOSINOPHILS PERCENT AUTO 4 % (0-6); Hematocrit 30.5 % (33.0-51.0); Hemoglobin 9.3 g/dL (11.5-16.0); IMMATURE GRAN ABSOLUTE AUTO 0.02 K/mm3 (0.00-0.10); IMMATURE GRAN PERCENT AUTO 0 % (0-1); LYMPHOCYTES ABSOLUTE AUTO 1.41 K/mm3 (0.84-5.20); LYMPHOCYTES PERCENT AUTO 18 % (21-46); MONOCYTES ABSOLUTE AUTO 1.11 K/mm3 (0.16-1.47); MONOCYTES PERCENT AUTO 14 % (4-13); Mean Corpuscular HGB 30.3 pg (26.0-34.0); Mean Corpuscular HGB Conc 30.5 g/dL (31.5-36.5); Mean Corpuscular Volume 99 fL (80-100); Mean Platelet Volume 10.7 fL (9.1-12.4); NEUTROPHILS ABSOLUTE AUTO 5.05 K/mm3 (1.96-9.15); NEUTROPHILS PERCENT AUTO 64 % (41-73); Platelet Count 139 K/mm3 (150-400); RDW Coefficient Variation 14.5 % (11.7-14.2); RDW Standard Deviation 52.1 fL (35.1-46.3); Red Blood Cell Count 3.07 M/mm3 (3.80-5.20); White Blood Cell Count 7.93 K/mm3 (4.00-11.30)
[2023-10-22 04:19] LABS: Magnesium, Blood 2.2 mg/dL (1.6-2.4)
[2023-10-22 04:49] LABS: Albumin, Blood 3.4 g/dL (3.4-5.0); Blood Urea Nitrogen 79 mg/dL (8-24); Bun/Creatinine Ratio 43.4 (12.0-20.0); Calcium, Blood 9.3 mg/dL (8.5-10.1); Chloride, Blood 85 mmol/L (98-108); Creatinine, Blood 1.82 mg/dL (0.40-1.00); Glomerular Filtration Rate 28 (60-); Glucose, Blood 90 mg/dL (70-99); Phosphorus, Blood 2.9 mg/dL (2.5-4.9); Potassium, Blood 3.7 mmol/L (3.5-5.5); Sodium, Blood 138 mmol/L (136-145)
[2023-10-22 04:50] LABS: Anion Gap Unable to Calculate mmol/L (6-16)
[2023-10-22 04:51] LABS: CO2, Blood >45 mmol/L (21-32)
--- NOTE | 2023-10-22 05:27 | NUR ---
SHIFT SUMMARY NO ACUTE CHANGES SINCE PREVIOUS ASSUMPTION OF CARE NOTE. PATIENT SLEPT THROUGHOUT SHIFT, TOLERATED AVAPS MASK WHILE SLEEPING. AVAPS SETTINGS REMAIN THE SAME. COOPERATIVE WITH CARE. TELEMETRY SHOWING AFIB 60's. BP STABLE. PUREWICK IN PLACE, DRAINING YELLOW URINE TO SUCTION. ATTENDS IN PLACE. NO BM THIS SHIFT. REPOSITIONING REGULARLY TOLERATED. CALL LIGHT IN REACH. WILL REPORT TO ONCOMING RN.
[2023-10-22 07:14] VITALS: BP 136/48
--- NOTE | 2023-10-22 07:24 | NUR ---
Am note Pt alert, oriented, anxious regarding wearing bipap. Pt 2 person max assist to recliner. PT reports pain this am, will medicate per emar. Pt denies chest pain/pressure, nausea, dizziness and numb/tingling. Spo2 >90% on 4l o2 via nc, plans to replace biapa after breakfast, ls clear dim to bases. Tele afib 60-70' bp stable. Abd soft, nontender, +bt t/o. Edema to ble improving. Other vss. Will continue to monitor.
[2023-10-22 07:56] LABS: PCO2 Arterial 68.7 mmHg (35-45); PO2 Arterial 68.9 mmHg (80-100)
[2023-10-22 11:12] VITALS: BP 83/58
[2023-10-22 11:18] VITALS: BP 115/67
[2023-10-22 17:06] VITALS: BP 139/59
--- NOTE | 2023-10-22 17:50 | NUR ---
Shift Summary Pt wore bipap this afternoon for approx 2 hours. Up with PT/OT to chair, transfer with 1-2 person assist. No other acute changes noted Will continue to montitor.
[2023-10-22 19:18] VITALS: BP 149/71
--- NOTE | 2023-10-22 20:30 | NUR ---
ASSUMPTION OF CARE AFTER RECEIVING REPORT FROM MARILYN WISEMAN, THIS RN ASSUMED CARE AT APPROX 1915. DURING INITIAL ENCOUNTER, PATIENT RECEIVING A BEDBATH. IS ALERT AND ORIENTED X4. ABLE TO COMMUNICATE NEEDS EFFECTIVELY. FLAT AFFECT NOTED, COOPERATIVE WITH CARE AT THIS TIME. REPORTING FEELING ANXIOUS, MEDICATED PER EMAR W/ PO ATARAX. PAIN IS TOLERABLE AT THIS TIME, /10. WILL CONTINUE TO MONITOR AND MEDICATE PER EMAR NEEDED. PATIENT REPORTING FEELING TIRED THIS EVENING. VSS. TELEMETRY SHOWING AFIB 60's. BP STABLE. DENIES CHEST PAIN OR PRESSURE. IS ON 4L VIA NASAL CANNULA, SATS >92%. EXPERIENCES SHORTNESS OF BREATH WITH ACTIVITY. PLAN TO SWITCH TO AVAP 10 35% WHILE SLEEPING. PATIENT TO NOTIFY WHEN READY TO GO TO SLEEP. PUREWICK IN PLACE FOR INCONTINENCE MANAGEMENT, DRAINING YELLOW URINE TO SUCTION. ATTENDS IN PLACE, CHANGING PRN TO KEEP C/D/I. CALL LIGHT IN REACH.
[2023-10-23] VITALS (7 sets, daily range): BP systolic 124–159; BP diastolic 53–99
[2023-10-23 04:11] LABS: BASOPHILS ABSOLUTE AUTO 0.02 K/mm3 (0.00-0.23); BASOPHILS PERCENT AUTO 0 % (0-2); EOSINOPHILS PERCENT AUTO 4 % (0-6); Hematocrit 28.7 % (33.0-51.0); Hemoglobin 8.8 g/dL (11.5-16.0); IMMATURE GRAN ABSOLUTE AUTO 0.02 K/mm3 (0.00-0.10); IMMATURE GRAN PERCENT AUTO 0 % (0-1); LYMPHOCYTES ABSOLUTE AUTO 1.35 K/mm3 (0.84-5.20); LYMPHOCYTES PERCENT AUTO 16 % (21-46); MONOCYTES PERCENT AUTO 16 % (4-13); Mean Corpuscular HGB 30.2 pg (26.0-34.0); Mean Corpuscular HGB Conc 30.7 g/dL (31.5-36.5); Mean Corpuscular Volume 99 fL (80-100); Mean Platelet Volume 11.3 fL (9.1-12.4); NEUTROPHILS ABSOLUTE AUTO 5.34 K/mm3 (1.96-9.15); NEUTROPHILS PERCENT AUTO 64 % (41-73); Platelet Count 146 K/mm3 (150-400); RDW Coefficient Variation 14.5 % (11.7-14.2); RDW Standard Deviation 52.5 fL (35.1-46.3); Red Blood Cell Count 2.91 M/mm3 (3.80-5.20); White Blood Cell Count 8.33 K/mm3 (4.00-11.30)
[2023-10-23 04:31] LABS: Magnesium, Blood 2.3 mg/dL (1.6-2.4)
[2023-10-23 05:06] LABS: Albumin, Blood 3.3 g/dL (3.4-5.0); Blood Urea Nitrogen 84 mg/dL (8-24); Calcium, Blood 9.1 mg/dL (8.5-10.1); Chloride, Blood 86 mmol/L (98-108); Creatinine, Blood 1.91 mg/dL (0.40-1.00); Glomerular Filtration Rate 27 (60-); Glucose, Blood 127 mg/dL (70-99); Phosphorus, Blood 3.2 mg/dL (2.5-4.9); Potassium, Blood 3.7 mmol/L (3.5-5.5); Sodium, Blood 138 mmol/L (136-145)
[2023-10-23 05:07] LABS: Anion Gap Unable to Calculate mmol/L (6-16)
[2023-10-23 05:08] LABS: CO2, Blood >45 mmol/L (21-32)
--- NOTE | 2023-10-23 05:46 | NUR ---
SHIFT SUMMARY NO ACUTE CHANGES SINCE PREVIOUS ASSUMPTION OF CARE NOTE. PATIENT SLEPT THROUGHOUT THE SHIFT, EASILY AROUSABLE TO VERBAL STIMULI. TOLERATED WEARING AVAPS WHILE SLEEPING, SATS >92%. VS REMAIN STABLE. TELEMETRY SHOWING AFIB 50's. BP STABLE. REPORTED PAIN TOLERABLE THROUGHOUT. PUREWICK AND ATTENDS IN PLACE, CHANGING NEEDED TO KEEP C/D/I. VOIDING YELLOW URINE. NO BM THIS SHIFT. REPOSITIONING IN BED TOLERATED. CALL LIGHT IN REACH. WILL REPORT TO ONCOMING RN.
--- NOTE | 2023-10-23 17:07 | NUR ---
SHIFT SUMMARY: PT ALERT AND ORIENTED X4, ABLE TO FOLLOW COMMANDS AND MAKE NEEDS KNOWN. STRENGTH WEAK, EQUAL BILATERALLY. BP STABLE, HR AFIB 90'S, AFEBRILE, SPO2 >92% ON 4L NC. RESPIRATIONS EVEN AND UNLABORED AT REST. LUNG SOUDNS CLEAR IN UPPER, DIM IN BASES. PULSES STRONG AND EQUAL THROUGHOUT. PT CONTINUING TO DIURESE, APPROX 1100 OF URINARY OUTPUT THIS SHIFT. PUREWICK REMAINS IN PLACE FOR ACCURATE I&O'S. NO BM THIS SHIFT, PT CONTINUING TO REFUSE BOWEL CARE. REPOS Q2 TO MAINTAIN SKIN INTEGRITY. PT/OT IN TO SEE PT THIS AFTERNOON, PT REFUSED. EDUCATION PROVIDED BY THIS RN. CBG FROM 118-118 THIS SHIFT, COVERED PER EMAR. PT CURRENTLY SITTING UP IN BED, EATING DINNER. BED IN LOW, CALL LIGHT IN REACH, WILL REPORT TO ONCOMING RN.
[2023-10-24 04:02] LABS: BASOPHILS ABSOLUTE AUTO 0.03 K/mm3 (0.00-0.23); BASOPHILS PERCENT AUTO 0 % (0-2); EOSINOPHILS ABSOLUTE AUTO 0.24 K/mm3 (0.00-0.68); EOSINOPHILS PERCENT AUTO 3 % (0-6); Hematocrit 28.5 % (33.0-51.0); Hemoglobin 8.9 g/dL (11.5-16.0); IMMATURE GRAN ABSOLUTE AUTO 0.03 K/mm3 (0.00-0.10); IMMATURE GRAN PERCENT AUTO 0 % (0-1); LYMPHOCYTES ABSOLUTE AUTO 1.16 K/mm3 (0.84-5.20); LYMPHOCYTES PERCENT AUTO 12 % (21-46); MONOCYTES ABSOLUTE AUTO 1.42 K/mm3 (0.16-1.47); MONOCYTES PERCENT AUTO 15 % (4-13); Mean Corpuscular HGB 30.5 pg (26.0-34.0); Mean Corpuscular HGB Conc 31.2 g/dL (31.5-36.5); Mean Corpuscular Volume 98 fL (80-100); Mean Platelet Volume 11.2 fL (9.1-12.4); NEUTROPHILS ABSOLUTE AUTO 6.78 K/mm3 (1.96-9.15); NEUTROPHILS PERCENT AUTO 70 % (41-73); Platelet Count 152 K/mm3 (150-400); RDW Coefficient Variation 14.4 % (11.7-14.2); RDW Standard Deviation 50.9 fL (35.1-46.3); Red Blood Cell Count 2.92 M/mm3 (3.80-5.20); White Blood Cell Count 9.66 K/mm3 (4.00-11.30)
[2023-10-24 04:06] VITALS: BP 129/44
[2023-10-24 04:25] LABS: Magnesium, Blood 2.4 mg/dL (1.6-2.4)
[2023-10-24 04:30] LABS: Albumin, Blood 3.2 g/dL (3.4-5.0); Blood Urea Nitrogen 86 mg/dL (8-24); Bun/Creatinine Ratio 47.3 (12.0-20.0); Calcium, Blood 9.1 mg/dL (8.5-10.1); Chloride, Blood 85 mmol/L (98-108); Creatinine, Blood 1.82 mg/dL (0.40-1.00); Glomerular Filtration Rate 28 (60-); Glucose, Blood 111 mg/dL (70-99); Phosphorus, Blood 3.2 mg/dL (2.5-4.9); Potassium, Blood 3.2 mmol/L (3.5-5.5); Sodium, Blood 139 mmol/L (136-145)
[2023-10-24 04:31] LABS: Anion Gap Unable to Calculate mmol/L (6-16)
[2023-10-24 04:32] LABS: CO2, Blood >45 mmol/L (21-32)
--- NOTE | 2023-10-24 06:26 | NUR ---
SHIFT SUMMARY ASSUMED CARE OF PT AT 1900. PT IS A/OX4. HEART SOUNDS REGULAR. LUNG SOUNDS DIMINISHED AT BASES. PT REMAINED ON 4L NC AND WAS ON CPAP FROM 2100 TO 0200 AND THEN REMAINED ON NC T/O THE MORNING. NO ACUTE EVENTS. PT SLEPT T/O THE NOC.
[2023-10-24 07:29] VITALS: BP 129/55
--- NOTE | 2023-10-24 08:03 | NUR ---
AM NOTE PT IS ALERT AND ORIENTED X 4, SHE WAS WEARING A NC 4L TO MAINTAIN O2 >95% WHEN THIS NURSE ASSUMED CARE. PT WAS ENCOURAGED TO AMBULATE TO RECLINER CHAIR BUT SINCE AMBULATION HAS HAD DIFFICULTY MAINTAINING O2 AND NC HAS BEEN TITRATED TO 11 L. 11L WAS NOT MAINTAINING O2 SO PT HAS SINCE BEEN PLACED ON CPAP BY THIS RN W/ 10L BLEED. PT HAS BEEN ENCOURAGED/EDUCATED ON DEEP BREATHING EXERCISE TO MAINTAIN O2 BUT WHEN THIS RN WAS INSTRUCTING HER SHE STATED "WILL YOU JUST LEAVE ME ALONE" AND "YOU'RE A PAIN IN THE ASS." O2 IS NOW AT 92% VIA CPAP, DR. HUDDLESTON WAS AT BEDSIDE AND RESPIRATORY THERAPY WAS ALSO NOTIFIED. BP AND HR STABLE. CALL LIGHT W/IN REACH.
[2023-10-24 11:05] LABS: Bicarbonate Venous 47.9 mmol/L (24.0-30.0); PCO2 Venous 77.2 mmHg (38-42); pH Blood Venous 7.43 (7.34-7.37)
[2023-10-24 12:16] VITALS: BP 138/58
--- NOTE | 2023-10-24 12:31 | NUR ---
CARE NOTE PT IS SOMNOLENT BETWEEN PT CARE BUT IS A&O X 4. SHE HAS TOLD THIS RN "WHY DON'T YOU JUST BE QUITE" WHEN THIS RN ENCOURAGES PT TO TAKE MEDICATIONS. SHE ALSO DOES NOT FOLLOW INSTRUCTIONS TO DEEP BREATH. SHE HAS BEEN COMPLIANT WITH WEARING CPAP FOR MAJORITY OF SHIFT W/ BREAKS TO EAT/DRINK BUT DOES NOT TOLERATE NC AT 15L SPO2 IS AT 84%. WILL CONTINUE TO ENCOURAGE WEARING CPAP TO MAINTAIN SPO2 >95%.
--- NOTE | 2023-10-24 14:49 | NUR ---
CARE NOTE PT IS SOMNOLENT DURING SHIFT, SHE WAKES TO VERBAL STIMULI BUT NEEDS MUCH ENCOURAGEMENT TO PARTICIPATE IN PT CARE. SHE REFUSED TO TAKE 1400 GABAPENTIN STATING "I'VE HAD ENOUGH TODAY." AT APPROX. 1440 THIS RN WAS ASSESSING MENTATION AND PT KEPT STATING "GO TO SLEEP" WHEN ASKED ORIENTATION QUESTIONS. WHEN THIS RN ASKED PT AGAIN ORIENTATION QUESTIONS SHE ANSWERED THEM APPROPRIATELY. CALL LIGHT IS W/IN REACH.
[2023-10-24 15:03] VITALS: BP 138/55
--- NOTE | 2023-10-24 18:07 | NUR ---
SHIFT SUMMARY PT IS ALERT AND ORIENTED X 4 BUT BUT HAS BEEN SOMNOLENT DURING SHIFT. BP AND HR STABLE. SPO2 HAS BEEN MAINTAINED >95% VIA CPAP W/ 4L BLEED. PT HAS NOT TOLERATED NC WELL DURING SHIFT AND DUE TO ELEVATED VBG CO2 HAS BEEN ENCOURAGED TO REMAIN ON CPAP W/ BREAKS FOR MEDICATIONS AND MEALS/DRINK. SHE HAS HAD MINIMAL PO INTAKE. SHE HAS DENIED FEELINGS OF CHEST PAIN/PRESSURE. AT APROX. 1815 THIS RN WENT INTO PT ROOM DUE TO ALARM SOUNDING, SPO2 WAS AT 84% AND PT HAD DISCONNECTED CPAP MASK AND STATED "I WAS TRYING TO GET YOUR ATTENTION." CPAP PLACED TO IMPROVE SPO2 TO 95% AND PT WAS EDUCATED REGARDING CALL LIGHT USE. SHE HAS DENIED FEELINGS OF NAUSEA/VOMITTING. Q2 TURNING IMPLIMENTED TO PREVENT SKIN BREAKDOWN. PW DEVICE HAS BEEN IN USE TO VOID. LAST BM UNKNOWN AND PT REFUSED BOWEL CARE DURING SHIFT BUT HAS TAKEN PRUNES W/ MEALS IN HOPES OF PROMOTING BM. CALL LIGHT IS W/IN REACH.
[2023-10-24 21:04] VITALS: BP 109/61
[2023-10-24 23:44] VITALS: BP 144/69
[2023-10-25 03:40] VITALS: BP 150/105
[2023-10-25 04:30] LABS: BASOPHILS ABSOLUTE AUTO 0.03 K/mm3 (0.00-0.23); BASOPHILS PERCENT AUTO 0 % (0-2); EOSINOPHILS ABSOLUTE AUTO 0.16 K/mm3 (0.00-0.68); EOSINOPHILS PERCENT AUTO 2 % (0-6); Hematocrit 29.2 % (33.0-51.0); IMMATURE GRAN ABSOLUTE AUTO 0.03 K/mm3 (0.00-0.10); IMMATURE GRAN PERCENT AUTO 0 % (0-1); LYMPHOCYTES ABSOLUTE AUTO 1.29 K/mm3 (0.84-5.20); LYMPHOCYTES PERCENT AUTO 14 % (21-46); MONOCYTES ABSOLUTE AUTO 1.51 K/mm3 (0.16-1.47); MONOCYTES PERCENT AUTO 16 % (4-13); Mean Corpuscular HGB 30.1 pg (26.0-34.0); Mean Corpuscular HGB Conc 30.8 g/dL (31.5-36.5); Mean Corpuscular Volume 98 fL (80-100); NEUTROPHILS PERCENT AUTO 68 % (41-73); Platelet Count 161 K/mm3 (150-400); RDW Coefficient Variation 14.3 % (11.7-14.2); RDW Standard Deviation 51.1 fL (35.1-46.3); Red Blood Cell Count 2.99 M/mm3 (3.80-5.20); White Blood Cell Count 9.32 K/mm3 (4.00-11.30)
[2023-10-25 04:54] LABS: Magnesium, Blood 2.5 mg/dL (1.6-2.4)
--- NOTE | 2023-10-25 05:19 | NUR ---
SHIFT SUMMARY. SHIFT HAS LARGELY BEEN UNREMARKABLE. NO ACUTE CHANGES. PT AOX4, HAS BEEN PLEASANT AND COOPERATIVE WITH CARE OUTSIDE OF REFUSING 2100 STOOL SOFTENERS. PT HAS BEEN SOMNOLENT THROUGHOUT SHIFT, SLEEPING MOST OF THE TIME UNLESS WAKING TO ASK FOR WATER OR BEING WOKEN FOR REPOSITIONING OR OTHER CARE. PAIN HAS BEEN VERY MINIMAL OUTSIDE OF ASSOCIATED PAIN WITH REPOSITIONING AND TURNING. PRN PAIN MEDICATION ONLY REQUESTED AND ADMINISTERED ONE TIME. PT HAS HAD 2 INSTANCES OF DESATURATION OVER THE COURSE OF THE EVENING, ONCE LOW 79%. O2 BLEED IN ON BIPAP INCREASED TO 7 L 02, INCREASED HOB TO ~40 DEGREES. SINCE THESE ADJUSTMENTS, PT HAS BEEN MAINTAINING SATS >92%. I+Os TRACKED OUTSIDE OF ONE INCONTINENT VOID THAT WAS DUE TO PUREWICK NOT COLLECTING ALL OF VOIDED URINE. PUREWICK CHANGED AND APPEARS TO BE FUNCTIONING PROPERLY NOW. PT REQUESTED BEDPAN TO ATTEMPT TO HAVE BM THIS MORNING BUT WAS UNSUCCESSFUL. EDUCATED ON IMPORTANCE OF STOOL SOFTENERS RELATED TO THIS ISSUE. Q2 REPOSITIONING. TELE ON THROUGHOUT SHIFT, CONTINUES TO RUN AFIB WITH RATE MAINTAINING IN 60s-70s GENERALLY. BED LOCKED IN LOWEST POSITION. CALL LIGHT WITHIN REACH AND USED APPROPRIATELY. PT ABLE TO MAKE NEEDS KNOWN. CONTINUING TO MONITOR.
[2023-10-25 05:39] LABS: Albumin, Blood 3.2 g/dL (3.4-5.0); Blood Urea Nitrogen 88 mg/dL (8-24); Bun/Creatinine Ratio 47.1 (12.0-20.0); Calcium, Blood 9.2 mg/dL (8.5-10.1); Chloride, Blood 86 mmol/L (98-108); Creatinine, Blood 1.87 mg/dL (0.40-1.00); Glomerular Filtration Rate 28 (60-); Glucose, Blood 104 mg/dL (70-99); Phosphorus, Blood 3.3 mg/dL (2.5-4.9); Sodium, Blood 139 mmol/L (136-145)
[2023-10-25 05:44] LABS: Anion Gap Unable to Calculate mmol/L (6-16)
[2023-10-25 05:45] LABS: CO2, Blood >45 mmol/L (21-32)
[2023-10-25 06:26] LABS: Base Excess Venous 26.3 mmol/L; Bicarbonate Venous 47.8 mmol/L (24.0-30.0); PCO2 Venous 63.6 mmHg (38-42)
[2023-10-25 07:54] VITALS: BP 135/34
[2023-10-25 11:34] VITALS: BP 152/53
--- NOTE | 2023-10-25 11:43 | NUR ---
Pt resting on bipap attempted to see yesteday she was sleeping on a few attempts. Review of symptoms pt has a headache and complaining of bloating and pain and not wanting take medications. pt fatigued form the burden of ventilation. pt expressed stress feels she will in hospital. Anger at doctors for sharing prognosis. She expresses fear. Blunt conversation on prognosis needing treatment. Our team has spoke with her many time about her code status. She want full treatment. advised her she is very sick but not currently dying so she has to let us help her. Advised her if she sould decline more will tell her the honest turth. Said gisele with patient. We settled on goals of correcting constipation and toleratiing diurisis. Will update family on plan of care. Will return for supportive visits and reassessment. pt kps score is 40%. Furhter decline will discuss hospice to avoid suffering and to support family.
--- NOTE | 2023-10-25 15:02 | NUR ---
SHIFT SUMMARY: PATIENT IS A&OX4. PATIENT WAS ON HER BIPAP MAJORITY OF THIS MORNING WITH 7L OXYGEN BLEED IN WITH >90% OXYGEN SATS BECAUSE THE BIPAP CAME OFF FOR HER TO TAKE A SIP OF WATER HER OXYGEN SATS DESATURATED TO LOW 75%. THEN AT LUNCH TIME PATIENT WAS PLACED ON AN OXYMIZER NC WITH 10L OXYGEN WITH >90% OXYGEN SATS THAT WAY SHE WAS ABLE TO EAT HER LUNCH WHICH SHE TOLERATED WELL. NOW THAT THE PATIENT HAS BECOME MORE SLEEPY THIS AFTERNOON SHE HAS BEEN PLACED BACK ON HER BIPAP WITH 7L OXYGEN BLEED IN WITH >90% OXYGEN SATS. PATIENT HAS BEEN REPOSITIONED THROUGHOUT SHIFT WELL HAD HER ATTENDS CHANGED NEEDED. PATIENT HAS A PURWICK IN PLACE AND HAS YELLOW URINE OUTPUT AND SHE HAS ALSO HAD A COUPLE BM SMEARS AFTER SUPPOSITORY WAS GIVEN PER EMAR. PATIENT CALLS APPROPRIATELY. SHE IS LAYING IN BED WITH CALL LIGHT IN REACH.
[2023-10-25 16:44] VITALS: BP 141/58
[2023-10-25 19:41] VITALS: BP 157/72
[2023-10-26] VITALS (7 sets, daily range): BP systolic 128–162; BP diastolic 48–109
[2023-10-26 04:09] LABS: BASOPHILS ABSOLUTE AUTO 0.04 K/mm3 (0.00-0.23); BASOPHILS PERCENT AUTO 0 % (0-2); EOSINOPHILS PERCENT AUTO 1 % (0-6); Hematocrit 30.6 % (33.0-51.0); Hemoglobin 9.6 g/dL (11.5-16.0); IMMATURE GRAN ABSOLUTE AUTO 0.03 K/mm3 (0.00-0.10); IMMATURE GRAN PERCENT AUTO 0 % (0-1); LYMPHOCYTES ABSOLUTE AUTO 1.09 K/mm3 (0.84-5.20); LYMPHOCYTES PERCENT AUTO 8 % (21-46); MONOCYTES PERCENT AUTO 13 % (4-13); Mean Corpuscular HGB 30.4 pg (26.0-34.0); Mean Corpuscular HGB Conc 31.4 g/dL (31.5-36.5); Mean Corpuscular Volume 97 fL (80-100); Mean Platelet Volume 10.4 fL (9.1-12.4); NEUTROPHILS PERCENT AUTO 78 % (41-73); Platelet Count 177 K/mm3 (150-400); RDW Standard Deviation 49.9 fL (35.1-46.3); Red Blood Cell Count 3.16 M/mm3 (3.80-5.20); White Blood Cell Count 13.26 K/mm3 (4.00-11.30)
[2023-10-26 04:28] LABS: Magnesium, Blood 2.5 mg/dL (1.6-2.4)
[2023-10-26 04:37] LABS: Albumin, Blood 3.2 g/dL (3.4-5.0); Anion Gap Unable to Calculate mmol/L (6-16); Blood Urea Nitrogen 85 mg/dL (8-24); Bun/Creatinine Ratio 51.8 (12.0-20.0); Calcium, Blood 9.5 mg/dL (8.5-10.1); Chloride, Blood 87 mmol/L (98-108); Creatinine, Blood 1.64 mg/dL (0.40-1.00); Glomerular Filtration Rate 32 (60-); Glucose, Blood 137 mg/dL (70-99); Phosphorus, Blood 3.3 mg/dL (2.5-4.9); Potassium, Blood 2.9 mmol/L (3.5-5.5); Sodium, Blood 139 mmol/L (136-145)
[2023-10-26 04:40] LABS: CO2, Blood >45 mmol/L (21-32)
--- NOTE | 2023-10-26 17:30 | NUR ---
ASSUMED CARE AT 0700. A/A/OX3 DURING SHIFT, INCREASING TO SLEEPY IN AFTERNOON. CPAP DURING DAY WHEN NAPPING, 7L VIA NC WHEN AWAKE. Q2 TURNS DURING SHIFT, PURWICK IN PLACE. CONSULT WITH DR. CHUN TODAY, PT VERBALIZES WITH THIS RN AND DR. CHUN THAT SHE WOULD LIKE TO BE DNR. ORDER PLACED BY PALLATIVE CARE AND PURPLE DNR BRACLET PLACED. SONS AT BEDSIDE IN AFTERNOON. VSS, NO ACUTE CHANGES DURING SHIFT, WILL CONTINUE TO MONITOR AND TREAT UNTIL CHANGE OF SHIFT.
[2023-10-27 05:34] VITALS: BP 109/53
[2023-10-27 05:51] LABS: BASOPHILS ABSOLUTE AUTO 0.04 K/mm3 (0.00-0.23); BASOPHILS PERCENT AUTO 0 % (0-2); EOSINOPHILS ABSOLUTE AUTO 0.12 K/mm3 (0.00-0.68); EOSINOPHILS PERCENT AUTO 1 % (0-6); Hematocrit 30.9 % (33.0-51.0); Hemoglobin 9.5 g/dL (11.5-16.0); IMMATURE GRAN ABSOLUTE AUTO 0.06 K/mm3 (0.00-0.10); IMMATURE GRAN PERCENT AUTO 0 % (0-1); LYMPHOCYTES ABSOLUTE AUTO 0.96 K/mm3 (0.84-5.20); LYMPHOCYTES PERCENT AUTO 7 % (21-46); MONOCYTES ABSOLUTE AUTO 1.57 K/mm3 (0.16-1.47); MONOCYTES PERCENT AUTO 11 % (4-13); Mean Corpuscular HGB 29.7 pg (26.0-34.0); Mean Corpuscular HGB Conc 30.7 g/dL (31.5-36.5); Mean Corpuscular Volume 97 fL (80-100); NEUTROPHILS ABSOLUTE AUTO 11.06 K/mm3 (1.96-9.15); NEUTROPHILS PERCENT AUTO 80 % (41-73); Platelet Count 188 K/mm3 (150-400); RDW Coefficient Variation 13.9 % (11.7-14.2); RDW Standard Deviation 49.8 fL (35.1-46.3); White Blood Cell Count 13.81 K/mm3 (4.00-11.30)
[2023-10-27 05:57] LABS: Magnesium, Blood 2.6 mg/dL (1.6-2.4)
[2023-10-27 05:58] LABS: Albumin, Blood 3.1 g/dL (3.4-5.0); Blood Urea Nitrogen 93 mg/dL (8-24); Bun/Creatinine Ratio 54.7 (12.0-20.0); Calcium, Blood 9.6 mg/dL (8.5-10.1); Chloride, Blood 88 mmol/L (98-108); Glomerular Filtration Rate 31 (60-); Glucose, Blood 130 mg/dL (70-99); Phosphorus, Blood 3.2 mg/dL (2.5-4.9); Sodium, Blood 138 mmol/L (136-145)
[2023-10-27 05:59] LABS: Anion Gap Unable to Calculate mmol/L (6-16)
[2023-10-27 06:00] LABS: CO2, Blood >45 mmol/L (21-32)
--- NOTE | 2023-10-27 06:50 | NUR ---
SHIFT SUMMARY NO ACUTE EVENTS T/O NIGHT. PT A/O X 4. SOMULENT AT TIMES BUT WAKES UP EASILY. WORE CPAP T/O MOST OF NIGHT WITH A 2 HOUR BREAK. PT CONSTIPATED AND DID TAKE BOWEL CARE MEDS IN THE PM. PT PAINFUL THIS AM WHEN TRYING TO HAVE A BM. PT DID HAVE A LARGE BM, HARD AND BROWN. PURE WICK IN PLACE. CALL TO CE REGARDING MORNING LABS. ORDERS RECEIVED. VSS. WILL REPORT OFF TO ONCOMING RN.
[2023-10-27 07:42] VITALS: BP 141/51
[2023-10-27 11:28] VITALS: BP 108/85
[2023-10-27 16:15] VITALS: BP 138/49
--- NOTE | 2023-10-27 17:00 | NUR ---
SHIFT SUMMARY PT IS A&OX4, CALLS APPROPRAITELY, AND CAN MAKE HER NEEDS KNOWN. ON TELE SHE HAS BEEN AFIB 40'S-70'S W/O ANY COMPLAINTS OF ANGINA OR CHEST PRESSURE. SHE HAS BEEN BETWEEN 6-7L HFNC AND THE BIPAP W/ AVAP SETTINGS W/ 9L BLEED IN W/ SP02 >90%. SHE DID MERY DOWN ONCE TO THE LOW 40'S AND SP02 DOPPED TO THE LOW 80'S WHEN ASLEEP. I WOKE HER UP AND HER HR AND SP02 RECOVERED. PT HAS BEEN HAVING PAIN WHEN MOVING IN BED, AND SHE HAS BEEN HAVING SIGNIFICANT RECTAL PAIN RELATED TO PASSING LARGE BOWEL MOVEMENTS THE LAST 24 HOURS. SHE HAS BEEN A Q2 TURN, ACHS BLOOD SUGAR, RECIEVED A BED BATH, AND HAS HAD NO ACUTE EVENTS. THE PT HAD A FEW VISTIORS AND HAS HAD A PLEASENT DAY. SHE HAS BEEN ON A FLUID RESTRICTION. SEE I&O'S FOR TOTAL. DR. ENCINAS CHANGED HER DIURETIC'S AND K-DUR FROM BID TO DAILY. SEE EMAR. FIRE IGNITION RISK HAS BEEN ASSESSED.
[2023-10-27 20:47] VITALS: BP 126/61
[2023-10-28 00:57] VITALS: BP 105/65
[2023-10-28 05:10] VITALS: BP 105/60
[2023-10-28 05:57] LABS: BASOPHILS ABSOLUTE AUTO 0.04 K/mm3 (0.00-0.23); BASOPHILS PERCENT AUTO 0 % (0-2); EOSINOPHILS ABSOLUTE AUTO 0.35 K/mm3 (0.00-0.68); EOSINOPHILS PERCENT AUTO 3 % (0-6); Hematocrit 30.5 % (33.0-51.0); Hemoglobin 9.6 g/dL (11.5-16.0); IMMATURE GRAN ABSOLUTE AUTO 0.03 K/mm3 (0.00-0.10); IMMATURE GRAN PERCENT AUTO 0 % (0-1); LYMPHOCYTES ABSOLUTE AUTO 1.54 K/mm3 (0.84-5.20); LYMPHOCYTES PERCENT AUTO 15 % (21-46); MONOCYTES ABSOLUTE AUTO 1.28 K/mm3 (0.16-1.47); MONOCYTES PERCENT AUTO 12 % (4-13); Mean Corpuscular HGB 30.4 pg (26.0-34.0); Mean Corpuscular HGB Conc 31.5 g/dL (31.5-36.5); Mean Corpuscular Volume 97 fL (80-100); Mean Platelet Volume 10.6 fL (9.1-12.4); NEUTROPHILS ABSOLUTE AUTO 7.16 K/mm3 (1.96-9.15); NEUTROPHILS PERCENT AUTO 69 % (41-73); Platelet Count 188 K/mm3 (150-400); RDW Standard Deviation 49.9 fL (35.1-46.3); Red Blood Cell Count 3.16 M/mm3 (3.80-5.20)
[2023-10-28 06:10] LABS: Magnesium, Blood 2.7 mg/dL (1.6-2.4)
[2023-10-28 06:11] LABS: Albumin, Blood 2.9 g/dL (3.4-5.0); Anion Gap 5 mmol/L (6-16); Blood Urea Nitrogen 108 mg/dL (8-24); Bun/Creatinine Ratio 47.2 (12.0-20.0); CO2, Blood 43 mmol/L (21-32); Calcium, Blood 9.4 mg/dL (8.5-10.1); Chloride, Blood 91 mmol/L (98-108); Creatinine, Blood 2.29 mg/dL (0.40-1.00); Glomerular Filtration Rate 22 (60-); Glucose, Blood 116 mg/dL (70-99); Phosphorus, Blood 3.4 mg/dL (2.5-4.9); Potassium, Blood 3.3 mmol/L (3.5-5.5); Sodium, Blood 139 mmol/L (136-145)
--- NOTE | 2023-10-28 06:25 | NUR ---
End of shift note. Pt has been resting throughout the night. Pt has been on BiPAP for much of the shift, only requesting NC at 0500. Pt has used external cath all night, lower output since midnight. Pt has had minimal intake this shift due to fluid restriction. Pt has been repositioned frequently for complaints of leg and hip pain. PRN meds given with moderate effect. Pt has been cooperative all shift. Pt is able to make needs known, call light is within reach.
[2023-10-28 07:51] VITALS: BP 117/57
[2023-10-28 11:47] VITALS: BP 144/63
[2023-10-28 16:49] VITALS: BP 129/62
--- NOTE | 2023-10-28 18:40 | NUR ---
SHIFT SUMMARY: PT HAS BEEN A&O, COOPERATIVE W/CARE, ANSWERS QUESTIONS APPROPRIATELY, ABLE TO MAKE NEEDS KNOWN. PT DENIES SOB, O2 SATS >93%, CURRENTLY ON 3 L/MIN NC. AFIB ON MONITOR W/RATE 50s-70s. PUREWICK IN PLACE, SET TO SUCTION. FLUID RESTRICTION CONTINUES PER ORDERS. PT RECEIVES BEDBATH THIS AFTERNOON, C/O FEELING TIRED AFTERWARDS AND REQUESTING TO SLEEP. AT THIS TIME, PT IS RESTING QUIETLY IN ROOM WITH EYES CLOSED. CALL LIGHT IS WITHIN REACH. WILL MONITOR AND TREAT ACCORDINGLY UNTIL CHANGE OF SHIFT.
[2023-10-28 21:50] VITALS: BP 121/48
[2023-10-29 00:49] VITALS: BP 117/54
[2023-10-29 03:41] VITALS: BP 131/60
[2023-10-29 04:24] LABS: Hematocrit 32.3 % (33.0-51.0); Hemoglobin 9.9 g/dL (11.5-16.0)
[2023-10-29 04:51] LABS: Anion Gap 4 mmol/L (6-16); Blood Urea Nitrogen 118 mg/dL (8-24); Bun/Creatinine Ratio 54.4 (12.0-20.0); CO2, Blood 42 mmol/L (21-32); Calcium, Blood 9.2 mg/dL (8.5-10.1); Chloride, Blood 93 mmol/L (98-108); Creatinine, Blood 2.17 mg/dL (0.40-1.00); Glomerular Filtration Rate 23 (60-); Glucose, Blood 137 mg/dL (70-99); Magnesium, Blood 2.8 mg/dL (1.6-2.4); Phosphorus, Blood 3.2 mg/dL (2.5-4.9); Potassium, Blood 3.8 mmol/L (3.5-5.5); Sodium, Blood 139 mmol/L (136-145)
--- NOTE | 2023-10-29 06:29 | NUR ---
End of shift note. Pt has been more lethargic and sleepy this shift. Pt will wake when staff goes in to reposition. Purwick continues to be in place. Pt mindful of fluid restriction. Son was given and update this shift. Pt is able to make needs known, call light is within reach.
[2023-10-29 08:31] VITALS: BP 159/52
[2023-10-29 10:50] LABS: SARS-Cov-2 (COVID-19) PCR, MMC NEGATIVE (NEGATIVE)
[2023-10-29 11:39] VITALS: BP 132/91
--- NOTE | 2023-10-29 12:21 | NUR ---
Pt sitting up in chair, eating lunch. She c/o nausea but continued eating. Given zofran and will wait to assure pt does not have vomiting before gabapentin given for pain per scheduled order.
[2023-10-29] MEDS ORDERED: FURO80 PO (12:41)
[2023-10-29] MEDS ORDERED: HYDHCL25 PO (12:42)
[2023-10-29] MEDS ORDERED: LEVSOD100 PO (12:42)
[2023-10-29] MEDS ORDERED: METO25ER PO (12:45)
[2023-10-29] MEDS ORDERED: METO5 PO (12:45)
--- NOTE | 2023-10-29 12:46 | NUR ---
Telephone report given to [facility] nurse at this time.
[2023-10-29] MEDS ORDERED: SENN187 PO (12:49)
[2023-10-29] MEDS ORDERED: KLOR-CON 1010 ME9 PO (12:49)
[2023-10-29] MEDS ORDERED: MICONAZOLE NIT130 GM TOP (12:49)
[2023-10-29] MEDS ORDERED: SILDENAFIL PO (12:50)
== END 2023-10-29 12:58 | DRG 291 ==
LOC: ER 21:07 → MEDS 21:08 → PCU 10-13 14:50 → MEDS 10-13 14:50 → ICUE 10-19 11:41 → PCU 10-19 16:44
PROVIDERS: Emergency Medicine; Family Medicine; Internal Medicine; Internal Medicine Nephrology; Student in an Organized Health Care Education/Training Program; ADMIT Internal Medicine
PROC: 5A09557 Assistance with Respiratory Ventilation, Greater than 96 Consecutive Hours, Continuous Positive Airway Pressure (ICD-10-PCS; principal; 2023-10-16)
PROC: 0W993ZZ Drainage of Right Pleural Cavity, Percutaneous Approach (ICD-10-PCS; 2023-10-18)
DX: I13.0 Hypertensive heart and chronic kidney disease with heart failure and stage 1 through stage 4 chronic kidney disease, or unspecified chronic kidney disease (principal); I50.33 Acute on chronic diastolic (congestive) heart failure; J96.21 Acute and chronic respiratory failure with hypoxia; J96.22 Acute and chronic respiratory failure with hypercapnia; J90 Pleural effusion, not elsewhere classified; N17.9 Acute kidney failure, unspecified; E87.3 Alkalosis; Z68.41 Body mass index [BMI] 40.0-44.9, adult; I27.20 Pulmonary hypertension, unspecified; D63.1 Anemia in chronic kidney disease; Z66 Do not resuscitate; I25.10 Atherosclerotic heart disease of native coronary artery without angina pectoris; E78.5 Hyperlipidemia, unspecified; I25.5 Ischemic cardiomyopathy; G47.33 Obstructive sleep apnea (adult) (pediatric); I48.0 Paroxysmal atrial fibrillation; E11.22 Type 2 diabetes mellitus with diabetic chronic kidney disease; G89.29 Other chronic pain; M79.7 Fibromyalgia; K21.9 Gastro-esophageal reflux disease without esophagitis; E55.9 Vitamin D deficiency, unspecified; N18.30 Chronic kidney disease, stage 3 unspecified; M51.36 Other intervertebral disc degeneration, lumbar region; E66.9 Obesity, unspecified; E11.51 Type 2 diabetes mellitus with diabetic peripheral angiopathy without gangrene; F41.9 Anxiety disorder, unspecified; E88.09 Other disorders of plasma-protein metabolism, not elsewhere classified; D69.6 Thrombocytopenia, unspecified; R54 Age-related physical debility; E87.6 Hypokalemia; E03.9 Hypothyroidism, unspecified; Z51.5 Encounter for palliative care; Z88.1 Allergy status to other antibiotic agents; Z88.8 Allergy status to other drugs, medicaments and biological substances; Z79.891 Long term (current) use of opiate analgesic; Z79.82 Long term (current) use of aspirin; Z79.890 Hormone replacement therapy; Z79.4 Long term (current) use of insulin; Z79.899 Other long term (current) drug therapy; I25.2 Old myocardial infarction; Z86.73 Personal history of transient ischemic attack (TIA), and cerebral infarction without residual deficits; Z86.14 Personal history of Methicillin resistant Staphylococcus aureus infection; Z95.5 Presence of coronary angioplasty implant and graft; Z95.1 Presence of aortocoronary bypass graft; Z98.890 Other specified postprocedural states; Z86.74 Personal history of sudden cardiac arrest; Z99.81 Dependence on supplemental oxygen
CPT/HCPCS: 32555; 36415; 36600; 70450; 71045; 71046; 76770; 80048; 80053; 80069; 81001; 82042; 82330; 82803; 82945; 82947; 83615; 83735; 83880; 84156; 84157; 84443; 84484; 85014; 85018; 85025; 85610; 87070; 87205; 89051; 93005; 93010; 93306; 94640; 94660; 94664; 94762; 96374; 97110; 97162; 97530; 99285-25; A9270; C1751; J0881; J1120; J1644; J1650; J1815; J1940; J2060; J2405; J3480; J7050; P9047; U0002

== ENCOUNTER 2024-09-27 16:37 | Inpatient (IN) | payer MEDICARE, OTHER ==
[~2024-09-27] VITALS: Ht 165.1 cm; Wt 107.5 kg
[~2024-09-27 16:37] MED LIST changes: +HYDHCL25 PO; +KLOR-CON 1010 ME9 PO; +LEVSOD100 PO; +METO25ER PO; +METO5 PO; +MICONAZOLE NIT130 GM TOP; +PRESERVISION A1 EAC5 PO; +Percocet 5-3251 EACH PO; +REVATIO20 MG PO; +Robaxin750 MG; +SILDENAFIL PO; +TRAM50 PO
[2024-09-27 17:53] LABS: BASOPHILS ABSOLUTE AUTO 0.05 K/mm3 (0.00-0.23); BASOPHILS PERCENT AUTO 1 % (0-2); EOSINOPHILS ABSOLUTE AUTO 0.27 K/mm3 (0.00-0.68); EOSINOPHILS PERCENT AUTO 3 % (0-6); Hematocrit 36.5 % (33.0-51.0); Hemoglobin 12.1 g/dL (11.5-16.0); IMMATURE GRAN ABSOLUTE AUTO 0.03 K/mm3 (0.00-0.10); IMMATURE GRAN PERCENT AUTO 0 % (0-1); LYMPHOCYTES PERCENT AUTO 18 % (21-46); MONOCYTES ABSOLUTE AUTO 0.98 K/mm3 (0.16-1.47); MONOCYTES PERCENT AUTO 10 % (4-13); Mean Corpuscular HGB 30.1 pg (26.0-34.0); Mean Corpuscular HGB Conc 33.2 g/dL (31.5-36.5); Mean Corpuscular Volume 91 fL (80-100); Mean Platelet Volume 11.2 fL (9.1-12.4); NEUTROPHILS ABSOLUTE AUTO 6.93 K/mm3 (1.96-9.15); NEUTROPHILS PERCENT AUTO 69 % (41-73); Platelet Count 160 K/mm3 (150-400); RDW Coefficient Variation 12.5 % (11.7-14.2); RDW Standard Deviation 40.8 fL (35.1-46.3); Red Blood Cell Count 4.02 M/mm3 (3.80-5.20); White Blood Cell Count 10.06 K/mm3 (4.00-11.30)
[2024-09-27 18:20] LABS: Albumin, Blood 2.8 g/dL (3.4-5.0); Albumin/Globulin Ratio 0.5 (0.8-1.8); Bilirubin, Total 0.7 mg/dL (0.1-1.0); Bun/Creatinine Ratio 40.6 (12.0-20.0); Calcium, Blood 9.2 mg/dL (8.5-10.1); Creatinine, Blood 2.29 mg/dL (0.40-1.00); Globulin, Blood 5.1 g/dL (2.2-4.0); Potassium, Blood 2.8 mmol/L (3.5-5.5); Total Protein, Blood 7.9 g/dL (6.4-8.2)
[2024-09-27] MEDS ORDERED: Potassium Chl 10MEQ/Water100ML 100 ML IV ONE (19:55)
[2024-09-27] MEDS ORDERED: Potassium Chloride 20 MEQ TabCR PO ONE (19:55)
[2024-09-27] MEDS ORDERED: Piperacillin/Tazobactam Sod 2.25 GM in NS 50 ML IV ONE (19:55)
[2024-09-27] MEDS ORDERED: ACET250 PO (20:01)
[2024-09-27] MEDS ORDERED: METO5 PO (20:01)
[2024-09-27] MEDS ORDERED: EUTHYROX75 MC1 PO (20:01)
[2024-09-27] MEDS ORDERED: JARDIANCE10 MG PO (20:01)
[2024-09-27] MEDS ORDERED: Vancomycin HCL 500 MG in NS 250 ML IV ONE (20:05)
[2024-09-27] MEDS ORDERED: NS 1,000 ML IV ONE (20:05)
[2024-09-27] MEDS ORDERED: NS 1,000 ML IV SCH ×2 (20:25→20:55)
[2024-09-27] MEDS ORDERED: FLU VACC TS2024-25(6MOS UP)/PF 45 MCG/0.5 ML SYRINGE IM ONE (20:55)
[2024-09-27] MEDS ORDERED: Ondansetron 4 MG TAB PO PRN (20:55)
[2024-09-27] MEDS ORDERED: Insulin Regular 100 Unit/ML 1ML Dose SC SCH (21:00)
[2024-09-27] MEDS ORDERED: Enoxaparin 30 MG/0.3 ML SYR SC SCH (21:00)
[2024-09-27] MEDS ORDERED: OxyCODONE 10/Acetamin 325 TABLET PO PRN (21:10)
[2024-09-27] MEDS ORDERED: Vancomycin HCL 1,000 MG in NS 250 ML IV ONE (21:20)
[2024-09-27] MEDS ORDERED: Empagliflozin 10 MG TAB PO SCH (22:00)
[2024-09-27 23:08] VITALS: BP 130/43
--- NOTE | 2024-09-27 23:40 | NUR ---
ADMIT NOTE HANDOFF RECEIVED FROM WINDOW GLAZIER HELPER TERE. PT ARRIVED TO FLOOR VIA GURNEY. IV FLUIDS INFUSING. PT ORIENTED TO UNIT. CALL BUTTON WITHIN REACH. I DID CALL THE PT'S FAMILY MEMBER/ANN TUCKER TO INFORM HER OF THE PT'S ROOM NUMBER.
[2024-09-28] MEDS ORDERED: Vancomycin HCL 500 MG in NS 250 ML IV ONE (01:20)
[2024-09-28] MEDS ORDERED: BUME1 PO (01:57)
[2024-09-28] MEDS ORDERED: LACT PO (01:57)
--- NOTE | 2024-09-28 04:34 | NUR ---
SHIFT SUMMARY ADMITTED FOR 5TH RIGHT TOE INFECTION. LIMITED CODE - MEDS OKAY ONLY. PLAN IS FOR ANTIB, IV FLUIDS, PODIATRY CONSULT. PT HAS BEEN NPO SINCE MIDNIGHT. Q6 CBG'S, LOW SS. SHE SEES WOUND CLINIC/PODIATRY OUTPT. 1-2 ASSIST W/FWW. SHE USES A WC FOR LONGER DISTANCES. IV FLUIDS INFUSING. SHE HAS BEEN AT [id number] SINCE FEBRUARY OF THIS YEAR. SHE IS A&O X4. ON RA. HER BLE'S BOTH APPEAR REDDENED UP TO HER CALVES. HX OF DM2, EXTENSIVE CARDIAC HX. 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
[2024-09-28 05:34] LABS: BASOPHILS ABSOLUTE AUTO 0.05 K/mm3 (0.00-0.23); BASOPHILS PERCENT AUTO 1 % (0-2); EOSINOPHILS ABSOLUTE AUTO 0.21 K/mm3 (0.00-0.68); EOSINOPHILS PERCENT AUTO 2 % (0-6); Hematocrit 35.6 % (33.0-51.0); Hemoglobin 11.6 g/dL (11.5-16.0); IMMATURE GRAN ABSOLUTE AUTO 0.03 K/mm3 (0.00-0.10); IMMATURE GRAN PERCENT AUTO 0 % (0-1); LYMPHOCYTES ABSOLUTE AUTO 1.86 K/mm3 (0.84-5.20); LYMPHOCYTES PERCENT AUTO 21 % (21-46); MONOCYTES PERCENT AUTO 11 % (4-13); Mean Corpuscular HGB 29.3 pg (26.0-34.0); Mean Corpuscular HGB Conc 32.6 g/dL (31.5-36.5); Mean Corpuscular Volume 90 fL (80-100); Mean Platelet Volume 10.7 fL (9.1-12.4); NEUTROPHILS ABSOLUTE AUTO 5.92 K/mm3 (1.96-9.15); NEUTROPHILS PERCENT AUTO 65 % (41-73); Platelet Count 144 K/mm3 (150-400); RDW Coefficient Variation 12.4 % (11.7-14.2); RDW Standard Deviation 41.5 fL (35.1-46.3); Red Blood Cell Count 3.96 M/mm3 (3.80-5.20); White Blood Cell Count 9.07 K/mm3 (4.00-11.30)
[2024-09-28 06:15] LABS: Albumin, Blood 2.6 g/dL (3.4-5.0); Albumin/Globulin Ratio 0.5 (0.8-1.8); Bun/Creatinine Ratio 43.2 (12.0-20.0); Calcium, Blood 9.1 mg/dL (8.5-10.1); Creatinine, Blood 1.9 mg/dL (0.40-1.00); Globulin, Blood 4.8 g/dL (2.2-4.0); Potassium, Blood 3.1 mmol/L (3.5-5.5); Total Protein, Blood 7.4 g/dL (6.4-8.2)
[2024-09-28] MEDS ORDERED: Potassium Chl 20MEQ/Water100ML 100 ML IV STA (08:03)
[2024-09-28] MEDS ORDERED: Insulin Glargine-Yfgn 100 Unit/mL 3 ML SYR SC SCH (09:00)
[2024-09-28] MEDS ORDERED: Losartan Potassium 25 MG Tab PO SCH (09:00)
[2024-09-28] MEDS ORDERED: Enoxaparin 40 MG/0.4 ML SYR SC SCH (09:00)
[2024-09-28] MEDS ORDERED: Levothyroxine Sodium 0.075 MG Tab PO SCH (09:00)
[2024-09-28] MEDS ORDERED: Losartan Potassium 50 MG Tab PO SCH (09:00)
[2024-09-28] MEDS ORDERED: Gabapentin 300 MG Cap PO SCH (09:00)
[2024-09-28] MEDS ORDERED: AcetaZOLAMIDE 250 MG Tab PO SCH (09:00)
[2024-09-28] MEDS ORDERED: Sildenafil Citrate 20 MG Tab PO SCH (09:00)
[2024-09-28] MEDS ORDERED: Bumetanide 1 MG Tab PO SCH (09:00)
[2024-09-28] MEDS ORDERED: Metolazone 5 MG Tab PO SCH (09:00)
[2024-09-28] MEDS ORDERED: Lactobacil 2-S.Thermo-Bifido 1 1 Cap PO SCH (09:00)
[2024-09-28] MEDS ORDERED: Metoprolol Succinate 25 MG TABCR PO SCH (09:00)
--- NOTE | 2024-09-28 10:40 | NUR ---
PATIENT HAS REFUSED ALL CARE INCLUDING VITAL SIGNS AND MEDICATIONS TODAY, TELLING STAFF TO "GET THE HELL OUT OF HER ROOM". ABLE TO INFUSE IV K+ BUT HAS OTHERWISE REFUSED ALL PO MEDS AND INSULINE.
--- NOTE | 2024-09-28 14:05 | NUR ---
DR ROSA TO BEDSIDE.
[2024-09-28 15:49] VITALS: BP 182/86
[2024-09-28] MEDS ORDERED: Insulin Human Lispro 100 Units/ML 3ML Syringe SC SCH (16:30)
--- NOTE | 2024-09-28 17:22 | NUR ---
CALL FROM [id number], EMILY: PATIENT IS A DNR; POLST SHOULD BE ON FILE. CURRENTLY SAYS LIMITED. CHARGE NOTIFIED.
--- NOTE | 2024-09-28 18:39 | NUR ---
COPY OF UPDATED POLST RECEIVED FROM MARYANN BALBUENA. CALL TO DR VELA FOR ORDER TO CHANGE CODE STATUS. CONFIRMED WITH [id number] EMILY AND PATIENT. PURPLE BAND PLACED. VERIFIED BY RODRIGUEZ Hughes LPN.
[2024-09-28 19:11] VITALS: BP 156/73
--- NOTE | 2024-09-28 19:52 | NUR ---
END OF SHIFT SUMMARY: A&Ox4. IRRITABLE. NONCOMPLIANT WITH CARE; NONCONTRIBUTORY TO LOG ROLL FOR FRANCIA CARE AND CHANGING. VERY PAINFUL. HER [id number] REPORTS THIS IS HER BASELINE. EXHIBITS ABILITY TO UTILIZE CALL LIGHT SYSTEM. ABLE TO ADVOCATE NEEDS EFFECTIVELY, BUT DOES NOT ALWAYS, EVIDENCED BY HER NOT CALLING FOR VOID ASSISTANCE BEFORE VOIDING, THOUGH SHE KNOWS SHE NEEDS TO. THEREFORE, PUREWICK INITIATED TO PRESERVE SKIN INTEGRITY. BILATERAL HEEL MEPILEX APPLIED, BARRIER CREAM TO SACRUM AND Q2H TURN SCHEDULE INITIATED. MEDS WHOLE WITH FLUIDS. 2.5-3LPM/NC @ BASELINE; HAS BEEN MAINTAINING SPO2 >88% ON RA ALL DAY. HAS NOT BEEN OUT OF BED TO AMBULATE. DR. ROSA TO BEDSIDE TO CONSULT; UNABLE TO PERFORM REVASC UNTIL FRIDAY AT EARLIEST; THIS WILL ALLOW TIME FOR CREATININE TO IMPROVE (URRENTLY 1.90). DR DANIELS TO BEDSIDE TO CONSULT; NO URGENT NEED FOR AMPUTATION AND OKAY TO WAIT FOR S/P REVASC. BED IN LOWEST POSITION, CALL LIGHT WITHIN REACH, ALL NEEDS MET. REPORT TO ONCOMING NURSE.
[2024-09-28 23:50] LABS: Vancomycin, Random 15.5 ug/mL
[2024-09-29] MEDS ORDERED: Vancomycin HCL 1,250 MG in NS 250 ML IV ONE (00:25)
[2024-09-29] MEDS ORDERED: NS 250 ML IV PRN (01:30)
[2024-09-29 03:27] VITALS: BP 174/69
[2024-09-29 06:59] LABS: Magnesium, Blood 2.3 mg/dL (1.6-2.4)
[2024-09-29 07:00] LABS: Albumin, Blood 2.5 g/dL (3.4-5.0); Anion Gap 10 mmol/L (3-11); Blood Urea Nitrogen 72 mg/dL (8-24); Bun/Creatinine Ratio 40.9 (12.0-20.0); CO2, Blood 26 mmol/L (21-32); Chloride, Blood 111 mmol/L (98-108); Creatinine, Blood 1.76 mg/dL (0.40-1.00); Glomerular Filtration Rate 29 (60-); Glucose, Blood 209 mg/dL (70-99); Phosphorus, Blood 3.4 mg/dL (2.5-4.9); Potassium, Blood 3.8 mmol/L (3.5-5.5); Sodium, Blood 143 mmol/L (136-145)
[2024-09-29 07:55] VITALS: BP 146/58
[2024-09-29] MEDS ORDERED: Metolazone 5 MG Tab PO SCH (09:00)
[2024-09-29] MEDS ORDERED: Polyethylene Glycol 3350 17 gm PO SCH (11:00)
--- NOTE | 2024-09-29 14:53 | NUR ---
SHIFT SUMMARY PT RESTING QUIETLY AT START OF SHIFT. WOKE FOR CARE. PT IRRITABLE AT START OF SHIFT, BUT HAS BEEN A LITTLE MORE PLEASANT THE DAY WENT ON. PT ASSISTED UP TO HOME W/C AFTER BREAKFAST, PER REQUEST. PT LATER ABLE TO TX TO BTHRM FOR BM AND THEN BACK TO W/C, PER REQUEST. WARM BLANKET AND HEATING PAD PROVIDED FOR COMFORT. DR VELA HERE IN THE AM TO SEE PT. DAUGHTER CALLED FOR UPDATE AND REPORTED THAT PT IS NOT A CANIDATE FOR IR, PER DR ROSA, DR Reardon HAD ALREADY PLACED STENTS FOR REVASCULARIZATION. THIS RN CALLED DR HECK'S OFFICE TO VERIFY CONSULT WAS RECEIVED, CURRENTLY THERE ARE NO CONSULT NOTES ON CHART. DR HECK'S OFFICE IS CLOSED TODAY AND UNTIL Friday10/04/24. PT MEDICATED PER EMAR FOR C/O PAIN TO R FOOT. DENIES FURTHER NEEDS AT THIS TIME. CALL LT IN REACH.
[2024-09-29 16:13] VITALS: BP 148/77
[2024-09-29 19:44] VITALS: BP 134/63
[2024-09-29 22:31] LABS: Vancomycin, Random 25.4 ug/mL
[2024-09-30 03:39] VITALS: BP 154/56
--- NOTE | 2024-09-30 04:23 | NUR ---
SHIFT SUMMARY PT IS A&O X4, IRRITABLE AND SOMEWHAT ANXIOUS AT HS. DENIES A NEED FOR PRN XANAX. PT C/O 05/12 ALL OVER BODY ACHES, MEDICATED WITH PRN PERCOCET 10MG WITH GOOD EFFECTIVNESS. PT RESTING IN THE RECLINER T/O THIS SHIFT, REFUSES TO REST IN BED. PT REQUESTS REPOSITIONING IN THE RECLINER MULTIPLE TIMES T/O THIS SHIFT. INCONTINENT OF URINE. ATTENDS IN PLACE. HS B. NO ACUTE EVENTS DURING THIS SHIFT. BED AT THE LOWEST POSITION, CALL LIGHT W/I REACH. PT IS ABLE TO MAKE HER NEEDS KNOWN.
[2024-09-30 06:39] LABS: Albumin, Blood 2.3 g/dL (3.4-5.0); Anion Gap 10 mmol/L (3-11); Blood Urea Nitrogen 75 mg/dL (8-24); Bun/Creatinine Ratio 39.1 (12.0-20.0); CO2, Blood 25 mmol/L (21-32); Chloride, Blood 109 mmol/L (98-108); Creatinine, Blood 1.92 mg/dL (0.40-1.00); Glomerular Filtration Rate 27 (60-); Glucose, Blood 112 mg/dL (70-99); Phosphorus, Blood 3.3 mg/dL (2.5-4.9); Potassium, Blood 3.5 mmol/L (3.5-5.5); Sodium, Blood 140 mmol/L (136-145)
[2024-09-30 07:19] VITALS: BP 123/47
--- NOTE | 2024-09-30 09:00 | NUR ---
Pt laying in bed awake, watching tv, is irritable, at times, did cooperate with assessment, but acts like staff is bothering her, lungs are clear t/o, a bit dim in bases, resp even and unlabored, no cough noted, hrr, murmur noted, distant, piv to rac site is clear and patent, edema noted to b/l le, more on right than left, 2+, pinky on right foot is black but not open, heels were red, heel protectors in place at this time, btx4, abd flat soft nontender, voids via bsc, briefs in place, skin c/w/d, except as noted above, diana, call light in reach.
[2024-09-30] MEDS ORDERED: NS 1,000 ML IV SCH (13:35)
[2024-09-30 15:48] VITALS: BP 159/44
--- NOTE | 2024-09-30 19:28 | NUR ---
pt was up to the chair this afternoon, was insisting this am she could ambulate to the bathroom, she is a two person assist to the chair, she is quite irritable when care is given, states she is trying to sleep when her insulin needed to be given, and irritated she is being bothered, no further changes this shift. call light in reach.
[2024-09-30 19:56] VITALS: BP 148/67
[2024-09-30 23:03] LABS: Vancomycin, Random 19.2 ug/mL
[2024-10-01] MEDS ORDERED: Vancomycin HCL 750 MG in NS 250 ML IV ONE (01:00)
--- NOTE | 2024-10-01 04:16 | NUR ---
SHIFT SUMMARY NO ACUTE EVENTS DURING THIS SHIFT. HS B. PT CONTINUES TO BE SHORT AND IRRITABLE WITH THE STAFF MEMBERS. STAFF IS UNABLE TO REDIRECT THE PT. INCONTINENT OF URINE, PULLUPS FROM DAY SHIFT SWITCHED TO ATTENDS AT NOC SHIFT. PT IS UNABLE TO ASSIST WHEN TURNING IN BED. PRN PO PERCOCET ADMINISTERED FOR CHRONIC PAIN. THIS INNOVATION MANAGER MET THE PT'S [id number] GARRETT, WHO IS POA FOR THE PT. GARRETT IS PART OF THE [facility] STAFF. NO OTHER COMPLAINTS OFFERED/REPORTED DURING THIS SHIFT. BED AT THE LOWEST POSITION, CALL LIGHT W/I REACH. PT IS ABLE TO MAKE HER NEEDS KNOWN AND IS SOMEWHAT COOPERATIVE WITH CARE.
[2024-10-01 05:26] VITALS: BP 135/46
[2024-10-01 05:48] LABS: Albumin, Blood 2.2 g/dL (3.4-5.0); Anion Gap 12 mmol/L (3-11); Blood Urea Nitrogen 71 mg/dL (8-24); Bun/Creatinine Ratio 38.2 (12.0-20.0); CO2, Blood 22 mmol/L (21-32); Calcium, Blood 8.8 mg/dL (8.5-10.1); Chloride, Blood 112 mmol/L (98-108); Creatinine, Blood 1.86 mg/dL (0.40-1.00); Glomerular Filtration Rate 28 (60-); Glucose, Blood 163 mg/dL (70-99); Phosphorus, Blood 3.2 mg/dL (2.5-4.9); Potassium, Blood 3.7 mmol/L (3.5-5.5); Sodium, Blood 142 mmol/L (136-145)
[2024-10-01 07:06] VITALS: BP 127/45
[2024-10-01] MEDS ORDERED: Insulin Human Lispro 100 Units/ML 3ML Syringe SC SCH (07:30)
[2024-10-01] MEDS ORDERED: Empagliflozin 25 MG TAB PO SCH (09:00)
[2024-10-01 14:58] VITALS: BP 165/67
--- NOTE | 2024-10-01 17:01 | NUR ---
SHIFT SUMMARY MS PEÑALOZA IS GENERALLY WEAK, ABLE TO STAND WITH 2 STAFF ASSISTANCE, GAIT BELT AND WALKER, REMINDED TO KEEP HER BALANCE, LOOK UP AND STAND STRAIGHT AND SHE IS ABLE TO BALANCE ONCE ENCOURAGED. CONTINENT OF URINE AND LARGE STOOL TODAY. REPOSITIONED IN CHAIR AND IN BED, EXCORATED PRESSURE AREA ON COCCYX, CLEANSED AND MEPILEX APPLIED. RIGHT FOOT PAINFUL WHEN SHE STANDS BUT SOMETIMES PAINFREE WITH FOOT ELEVATED. SOMETIMES C/O GENERALISED PAIN. REPOSITIONING, PAIN MEDICATION, HEAT PAD IN USE AND HELPFUL. PIV X 2 REMOVED (LEFT ARM PAINFUL, R PIV WAS LEAKING AND REMOVED BY BREAK NURSE) MS PEÑALOZA WAS RELUCTANT TO GET A NEW PIV PLACED, EDUCATED ON THE IMPORTANCE OF IV THERAPY. PIV PLACED WHEN PT HAD TAKEN A BREAK AND WAS READY. BED LOW, CALL LIGHT IN REACH.
[2024-10-01 20:54] VITALS: BP 143/57
--- NOTE | 2024-10-02 04:09 | NUR ---
Pt A&O x4, up with SBA to BSC tonight, Pt with BG at 181, no coverage. pain minimal this shift no meds administered. IVF running, Pt on BR except to use BSC d/t pain. wound does have foul odor, unable to assess d/t dressing. Plan to revascularization on thursday 10/04. just notified by manager inventory control that she is refusing her labs this am, will readdress at latter time.
[2024-10-02 04:49] VITALS: BP 151/54
[2024-10-02 07:34] VITALS: BP 141/66
[2024-10-02] MEDS ORDERED: Levothyroxine Sodium 0.075 MG Tab PO SCH (08:06)
[2024-10-02 08:23] LABS: Hematocrit 32.5 % (33.0-51.0); Hemoglobin 10.5 g/dL (11.5-16.0); Mean Corpuscular HGB 29.6 pg (26.0-34.0); Mean Corpuscular HGB Conc 32.3 g/dL (31.5-36.5); Mean Corpuscular Volume 92 fL (80-100); Mean Platelet Volume 10.4 fL (9.1-12.4); Platelet Count 148 K/mm3 (150-400); RDW Coefficient Variation 12.4 % (11.7-14.2); RDW Standard Deviation 41.8 fL (35.1-46.3); Red Blood Cell Count 3.55 M/mm3 (3.80-5.20); White Blood Cell Count 9.97 K/mm3 (4.00-11.30)
[2024-10-02 08:46] LABS: Albumin, Blood 2.3 g/dL (3.4-5.0); Anion Gap 11 mmol/L (3-11); Blood Urea Nitrogen 68 mg/dL (8-24); Bun/Creatinine Ratio 36.8 (12.0-20.0); CO2, Blood 22 mmol/L (21-32); Chloride, Blood 111 mmol/L (98-108); Creatinine, Blood 1.85 mg/dL (0.40-1.00); Glomerular Filtration Rate 28 (60-); Glucose, Blood 139 mg/dL (70-99); Magnesium, Blood 2.1 mg/dL (1.6-2.4); Phosphorus, Blood 3.2 mg/dL (2.5-4.9); Potassium, Blood 4.2 mmol/L (3.5-5.5); Sodium, Blood 140 mmol/L (136-145)
[2024-10-02 08:49] LABS: Vancomycin, Random 21.3 ug/mL
[2024-10-02] MEDS ORDERED: Rivaroxaban 10 MG Tab PO SCH (09:00)
[2024-10-02] MEDS ORDERED: Metoprolol Succinate 25 MG TABCR PO SCH (09:00)
[2024-10-02] MEDS ORDERED: NS 1,000 ML IV SCH (10:20)
[2024-10-02] MEDS ORDERED: Vancomycin HCL 1,000 MG in NS 250 ML IV SCH (13:00)
[2024-10-02 15:22] VITALS: BP 138/72
--- NOTE | 2024-10-02 15:53 | NUR ---
DISCUSSED CASE WITH DR. KLEIN AND BEDSIDE RN. PATIENT WAS ASLEEP DURING MY ROUNDS. PATIENT WAS EXPRESSING HESITATION THIS MORNING TO THE BEDSIDE RN ABOUT HER UPCOMING PROCEDURES. BUT THIS AFTERNOON SHE HAD EXPRESSED TO THE SAME RN THAT SHE DID NOT WANT HER INFECTION TO GET WORSE OR SPREAD. SHE IS WANTING TO HAVE THE RECOMENDED PROCEDURES AT THIS TIME.
--- NOTE | 2024-10-02 16:24 | NUR ---
BEDSIDE RN REPORTED THAT PATIENT HAD CONCERNS ABOUT HER CURRENT LIVING SITUATION. SHE WAS UNHAPPY LIVING AT [facility], AND WANTED TO DISCUSS OTHER OPTION ABOUT HOUSING.
--- NOTE | 2024-10-02 16:57 | NUR ---
SHIFT SUMMARY DISCUSSION OF CARE PLAN WITH MS PEÑALOZA THIS MORNING. AFTER CONSIDERATION AND DISCUSSION MS PEÑALOZA SAID THAT SHE DOES WANT TO GET TREATMENT, REVASCULARIZATION, AMPUTATION IF NEEDED. SHE IS CONCERNED ABOUT HER LIVING SITUATION AT [facility] AND IS KEEN TO EXPLORE OTHER OPTIONS. SHE SAID THAT SHE IS UNHAPPY LIVING THERE. ANGELA, PALLIATIVE CARE RN IS REACHING OUT TO INSTRUMENT TESTER TO DISCUSS ALTERNATIVE OPTIONS WITH MS PEÑALOZA. NO FAMILY PRESENCE TODAY. CONTINENT OF URINE USING BEDSIDE COMMODE WITH 1-2 PERSON ASSISTANCE USING WALKER AND GAIT BELT. MEPILEX ON COCCYX SORE, PRESSURE RELIEF WITH TURNS Q2HRS AND PT EDUCATION REINFORCED. MS PEÑALOZA HAS 7/10 GENERALISED AND R FOOT PAIN WHEN ASKED AND HER FOOT IS SORE TO TOUCH AND MOVEMENT BUT SHE HAS NOT WANTED TO TAKE PAIN MEDICAITONS TODAY. IVF NS INFUSING AT 50CC/HR. UP TO CHAIR FOR LUNCH AND SUPPER. CALL LIGHT IN REACH.
[2024-10-02 19:44] VITALS: BP 139/108
[2024-10-02 19:50] VITALS: BP 143/69
--- NOTE | 2024-10-03 04:21 | NUR ---
SHIFT SUMMARY PATIENT IS ALERT AND ORIENTED. PATIENT HAS HAD NO ACUTE EVENTS THIS SHIFT. VITAL SIGNS REVIEWED. PATIENT HAS BEEN PLEASENT AND COOPERATIVE WITH CARE THIS SHIFT. PATIENT HAS REPORTED PAIN, MEDICATED PER EMAR. PATIENT HAS BEEN A 1-2 PERSON ASSIST THIS SHIFT. BED IN LOCKED AND LOWEST POSITION. CALL LIGHT IN PLACE. WILL MONITOR UNTIL SHIFT CHANGE.
[2024-10-03 04:43] VITALS: BP 142/56
[2024-10-03 07:30] VITALS: BP 138/47
[2024-10-03 15:33] VITALS: BP 168/69
--- NOTE | 2024-10-03 16:28 | NUR ---
SHIFT SUMMARY MS PEÑALOZA IS SITTING UP IN THE CHAIR THIS AFTERNOON. SHE HAS BEEN STANDING, REPOSITIONING, MOSTLY CONTINENT TO THE BEDSIDE COMMODE. SOFT LARGE STOOLS, VOIDING WELL WITH SOME URGENCY. SHE C/O RIGHT FOOT PAIN AND GENERALISED PAIN WHEN ASKED, BUT HAS NOT WANTED TO TAKE PAIN MEDICATIONS SO FAR THIS SHIFT. 1-2 PERSON ASSIST TO TRANSFER FROM CHAIR TO COMMODE, 2 PERSON ASSIST GETTING OUT OF BED THE MANOUVERING IS MORE DIFFICULT FOR HER. MS PEÑALOZA HAS BEEN TALKATIVE AND LAUGHING, SHARING STORIES. REPOSITIONED AT LEAST Q2HRS FOR PRESSURE RELIEF. CALL LIGHT IN REACH AND USED APPROPRIATELY.
[2024-10-03 19:45] VITALS: BP 165/68
[2024-10-04 02:55] VITALS: BP 127/76
[2024-10-04 07:19] VITALS: BP 131/48
[2024-10-04 12:03] LABS: Hematocrit 32.4 % (33.0-51.0); Hemoglobin 10.4 g/dL (11.5-16.0); Mean Corpuscular HGB 29.9 pg (26.0-34.0); Mean Corpuscular HGB Conc 32.1 g/dL (31.5-36.5); Mean Corpuscular Volume 93 fL (80-100); Mean Platelet Volume 10.1 fL (9.1-12.4); Platelet Count 161 K/mm3 (150-400); RDW Coefficient Variation 12.5 % (11.7-14.2); RDW Standard Deviation 42.7 fL (35.1-46.3); Red Blood Cell Count 3.48 M/mm3 (3.80-5.20); White Blood Cell Count 7.37 K/mm3 (4.00-11.30)
[2024-10-04 13:08] LABS: Albumin, Blood 2.2 g/dL (3.4-5.0); Anion Gap 10 mmol/L (3-11); Blood Urea Nitrogen 60 mg/dL (8-24); Bun/Creatinine Ratio 36.6 (12.0-20.0); CO2, Blood 23 mmol/L (21-32); Calcium, Blood 9.2 mg/dL (8.5-10.1); Chloride, Blood 112 mmol/L (98-108); Creatinine, Blood 1.64 mg/dL (0.40-1.00); Glomerular Filtration Rate 32 (60-); Glucose, Blood 95 mg/dL (70-99); Phosphorus, Blood 3.2 mg/dL (2.5-4.9); Potassium, Blood 4.2 mmol/L (3.5-5.5); Sodium, Blood 141 mmol/L (136-145); Vancomycin, Trough 21.6 ug/mL (5.0-10.0)
[2024-10-04 14:29] VITALS: BP 157/59
--- NOTE | 2024-10-04 18:31 | NUR ---
SHIFT SUMMARY- PLAN WAS FOR PT TO GO TO THE SENIOR UX DESIGNER FOR REVASC TODAY. PT HAD A STAT CTA ABDOMEN TODAY. DR ROSA PLACED A PERIPHERAL IV WITH ULTRASOUND THIS MORNING IN PREPARATION. D/T EMERGENCY PROCEDURES THE PT WAS UNABLE TO HAVE THE PROCEDURE DONE TODAY. CALLED DR ROSA THIS EVENING TO CLARIFY IF THE PT WAS GOING TODAY STILL, RECIEVED AN ORDER TO GIVE THE PT DINNER AND MAKE HER NPO AT MIDNIGHT. PT FAMILY WAS NOTIFIED THIS EVENING AND ARE AWARE OF THE CHANGE IN PLANS. PT HAD A C/O NUMBNESS IN THE RLE THIS EVENING PLACED THE LEG ON PILLOWS D/T INCREASED EDEMA. PULSES PALPATED W/O DIFFICULTY. EXTREMITY IS WARM TO THE TOUCH. PT MEDICATED FOR PAIN ONCE THIS SHIFT. PT IN BED, CALL LIGHT IN REACH NO S&S OF DISTRESS NOTED. PER SENIOR UX DESIGNER PO MEDS HELD TODAY, PT HAD A LOW BP THIS AFTERNOON, MEDS WERE HELD BUT RECHECK SHOWED THAT BP TO BE A FLUKE. XERALTO HELD TODAY AND SHOULD BE HELD AGAIN UNTIL THE PT GOES TO THE SENIOR UX DESIGNER PER SENIOR UX DESIGNER RN X BREAK RN CONVERSATION.
[2024-10-04 19:03] VITALS: BP 149/67
[2024-10-04] MEDS ORDERED: Arginine/Glutamine/Calcium Hmb 1 Packet PO SCH (21:00)
[2024-10-05] VITALS (12 sets, daily range): BP systolic 66–169; BP diastolic 38–83
--- NOTE | 2024-10-05 05:25 | NUR ---
AAOX 3-4, PLEASANT AND COOPERATIVE WITH CARES. TRANSFERES TO BSC WITH WALKER AND GAIT BELT X 1-2 ASSIST, TOLERATES WELL. IT IS DIFFICULT FOR PT TO GET TO A POC IN BED, MULTIPLE POS CHANGES THROUGHOUT NIGHT. NPO @ MIDNIGHT FOR REVASCULIZATION AND R 5TH DIGIT AMPUTATION. LAST DOSE OF XARELTO 12.1.24 @0900
[2024-10-05] MEDS ORDERED: Vancomycin HCL 750 MG in NS 250 ML IV SCH ×2 (14:00→20:00)
[2024-10-05] MEDS ORDERED: NS 250 ML IV ONE (14:25)
[2024-10-05] MEDS ORDERED: Heparin Sodium 1000 Units/ML 10ML MDV ONE ×3 (14:25→16:49)
[2024-10-05] MEDS ORDERED: NS 1,000 ML IV ONE ×2 (14:25→14:48)
[2024-10-05] MEDS ORDERED: FentaNYL Citrate 50 MCG/ML 2 ML Injection ONE ×2 (14:48→18:21)
[2024-10-05] MEDS ORDERED: Midazolam HCl 1MG / ML 2ML Vial ONE ×2 (14:48→17:48)
--- NOTE | 2024-10-05 14:53 | NUR ---
PATIENT WENT DOWN TO INTERVENTIONAL RADIOLOGY FOR REVASCULARIZATION PROCEDDURE AT 1440. WAS NOT ABLE TO HANG UP VANCO PRIOR TO GOING DOWN. WILL PASS ON TO PHARMACY ONCE COMPLETED.
[2024-10-05] MEDS ORDERED: Tetracaine HCl 1% 10MG/ML 2ML Amp XX ONE (14:55)
--- NOTE | 2024-10-05 15:11 | NUR ---
REPORT CALLED TO THEATRICAL DRESSERBOWEN VARGHESE AT 1515 PATIENT GOING TO PCU 1 AFTER PROCEDURE. BELONGINGS AND MEDICATIONS IN BIN GATHERED. ROBBY SENT WELL. ÁNGEL LINARES WALKED BELONGINGS AND MEDS DOWN TO ROOM.
[2024-10-05] MEDS ORDERED: Verapamil HCL 2.5 MG/ML 2ML Injection ONE (16:27)
[2024-10-05] MEDS ORDERED: Nitroglycerin 2 MG/20 ML BTL ONE (16:27)
[2024-10-05] MEDS ORDERED: NS 500 ML IV ONE (16:49)
--- NOTE | 2024-10-05 19:16 | NUR ---
RETURNED FROM PROCEDURE, AOX4, CALM COOPERATIVE NO C/O PAIN. L GROIN SITE DRESSING C/D/I (ANGIOSEAL, GAUZE, TEGADERM), WARM, NO BRUISING, NON TENDER, MILD FIRMNESS. R PEDAL SITE DRESSING (TEGADERM) HAD SCANT OLD DRY SANGUINEOUS DRAINAGE, INTACT. R FOOT WARM, CAP REFILL 3 SEC, NO C/O PAIN. RN REPORTED PULSES HAD RETURNED BUT WAS UNABLE TO LOCATE PEDAL OR TIBIAL BY PALPATION OR DOPPLER, STATED THE MD HAD FOUND IT AND THEY SAW THE BLOOD FLOW BY MONITOR. R PEDAL AND L TIBIAL PULSES FOUND BY BEDSIDE DOPPLER AND MARKED. V/S WNL, 3L NC, CO C/O CP OR DIFFICULTY BREATHING.
[2024-10-06] VITALS (14 sets, daily range): BP systolic 82–151; BP diastolic 39–105
--- NOTE | 2024-10-06 08:30 | NUR ---
ASSSUMPTION OF CARE 0800 PT RESTING IN RECLINER AT TIME OF ROUNDING. DID NOT WAKE WHEN ENTERED INTO ROOM. PROGRAMMING ENGINEER CHECKED GLUCOSE, NO COVERAGE NEEDED. PT HAD PURWICK IN PLACE WHEN IN THE CHAIR WITH YELLOW URINE OUT. PT ABLE TO STAND BY ASSIST WITH AIDE TO GET BACK TO BED. PT TOOK PO MEDICATION AND DRANK HER MIRILAX HOWEVER SHE STATES SHE DOES NOT LIKE OR DOES SHE TAKE THE JESSICA AT HOME. PT VS STABLE AFEBRILE ON 3L NC SAO2 98%. PT HAS EDEMA TO LE BILA. 2+ AND PULSE ONLY ABLE TO GET WITH DOPPLER HOWEVER VERY FAINT. PINKY TO ON RIGHT FOOT IS BLACK IN COLOR. MISSING 2ND DIGIT ON LEFT FOOT ALREADY. PT DENIES PAIN AT THIS TIME. PIV SALINE LOCKED. WILL FOLLOW UP WITH IR TO SEE IF A ULTRASOUND PULSITILE FLOW TEST NEEDS TO BE DONE OR NOT AND THEN WILL CONNECT WITH PODIATRY. DR KLEIN CAME BY AND SPOKE WITH THE PT WELL. DNR BAND IN ON WRIST. WILL CONTINUE CARE DIRECTED.
[2024-10-06] MEDS ORDERED: Aspirin 81 MG Chew PO SCH (09:00)
[2024-10-06] MEDS ORDERED: Clopidogrel Bisulfate 75 MG Tab PO SCH (09:00)
[2024-10-06] MEDS ORDERED: Furosemide 20 MG Tab PO SCH (09:00)
[2024-10-06] MEDS ORDERED: Ascorbic Acid 250 MG Chew PO SCH (13:20)
[2024-10-06] MEDS ORDERED: Zinc Sulfate 220 MG Cap (Provides 50MG) PO SCH (13:20)
--- NOTE | 2024-10-06 13:40 | NUR ---
Called Dr. Hernandez office to notify that revascularization was done yesterday, and ask if he has plans for surgery for the pt. Dr. Hernandez states that he is not street contractor at this time, so the on-call computer graphic artist needs to be consulted for any surgeries needed.
--- NOTE | 2024-10-06 13:46 | NUR ---
Spoke with Dr. Collado, the sponge clipper seed cleaning manager, who will see the patient this afternoon.
--- NOTE | 2024-10-06 17:52 | NUR ---
End of shift note Lizy has had an ok day today. She has been up out of bed twice in the recliner for two meals. She has tried to ambulate from bed to chair with a walker. She is still pretty weak. Pt continues on 3L NC Sa02 greater than 93% all day. She is getting more dim however with her lung sounds as the day progressess. Encouraging her to take take breathes and cough. She still has not had a bowel movement today even though she did drink her mirilax. She has pulses by doppler to LE bilat. however still quite weak. Dr Collado the stone planer saw Lizy today. He recommends keeping toe open to air except when up out of bed it is ok for her to wear a sock. No need for other wound treatments on her right pinky toe. He will come see her again tomorrow. Plan from Dr Collado's perspective is she should be able to go back to [facility] tomorrow. Dr Bauer is working with his team to decide if they will be ultrsounding the blood flow of her right pinky toe, still waiting for updates from the IR dept. Spoke with Lizy's [id number] keeping her up to date on what is being ordered and the plan of care is for Lizy. Lizy still needs lots of encouragement to move. VS otherwise stable and she is afebrile. IV is saline locked.
[2024-10-07] VITALS (25 sets, daily range): BP systolic 92–139; BP diastolic 35–110
--- NOTE | 2024-10-07 08:00 | NUR ---
am note this rn assumed care at 0700 from [employer] and did bedside shift report. vital signs stable. tele afib 90s. spo2 >90% on 3l nc. patient is not responding to verbal stimuli, will only respond to painful stimuli. patient will not open up eyes, when this rn opened eyes pupils are reactive, brisk, and equal in size. patient does not appear in pain, respiratory or cardiac distress. patient has doopler pulses to both right and left pedis pulse. patient has rigth fifth nercrotic toe, and revasc done on 10/05. plan for that toe to see how the toe responds to the revasc, poditary us on board and saw patient yesterday, see their note. see shift assessment for further detials. plan to hopefully discharge back to [facility] tomorrow or the next. morning face care, oral care, range of motion, and reposition done.
--- NOTE | 2024-10-07 08:54 | NUR ---
md in room md hidalgo in room with the patient. unable to get patient to open eyes or wake up, patient would groan when rubbed on sternum. patient to be made medical status with tele and md hidalgo to come back when patient is more alert.
--- NOTE | 2024-10-07 09:52 | NUR ---
morning medication held morning medications held due to patient mentation status and only responding to painful stimuli. insulin held as well due to patient not being able to eat, and looking at trends.
[2024-10-07 10:30] LABS: Hematocrit 33.7 % (33.0-51.0); Hemoglobin 10.6 g/dL (11.5-16.0); Mean Corpuscular HGB Conc 31.5 g/dL (31.5-36.5); Mean Corpuscular Volume 96 fL (80-100); Mean Platelet Volume 9.8 fL (9.1-12.4); Platelet Count 213 K/mm3 (150-400); RDW Coefficient Variation 13.1 % (11.7-14.2); RDW Standard Deviation 45.5 fL (35.1-46.3); Red Blood Cell Count 3.53 M/mm3 (3.80-5.20); White Blood Cell Count 9.65 K/mm3 (4.00-11.30)
[2024-10-07 10:54] LABS: Magnesium, Blood 2.3 mg/dL (1.6-2.4)
[2024-10-07 11:39] LABS: Albumin, Blood 2.5 g/dL (3.4-5.0); Anion Gap 11 mmol/L (3-11); Blood Urea Nitrogen 76 mg/dL (8-24); Bun/Creatinine Ratio 25.9 (12.0-20.0); CO2, Blood 23 mmol/L (21-32); Calcium, Blood 9.1 mg/dL (8.5-10.1); Chloride, Blood 110 mmol/L (98-108); Creatinine, Blood 2.94 mg/dL (0.40-1.00); Glomerular Filtration Rate 16 (60-); Glucose, Blood 106 mg/dL (70-99); Phosphorus, Blood 5.9 mg/dL (2.5-4.9); Potassium, Blood 6.2 mmol/L (3.5-5.5); Sodium, Blood 138 mmol/L (136-145)
[2024-10-07] MEDS ORDERED: NS 1,000 ML IV SCH (12:00)
[2024-10-07] MEDS ORDERED: Sodium Zirconium Cyclosilicate 10 GM Packet PO SCH (12:00)
--- NOTE | 2024-10-07 12:47 | NUR ---
UPDATE extension service specialist in charge, jonny, in at bedside and did sternal rub. patient did open eyes and wake up and groan and said "stop" and waved us off and then returned back to sleep. patient offered lunch by both rns and patient refused to open eyes back up. this rn attempted sternal rub again to get her to eat lunch and patient refused to open eyes this time or respond.
--- NOTE | 2024-10-07 13:15 | NUR ---
update this rn called md hidalgo to update on patient mentation not improving and low urine output, and patient not being awake enough to take lokelma to lower potassium. md hidalgo placed new orders.
[2024-10-07 14:00] LABS: Bicarbonate Venous 18.8 mmol/L (24.0-30.0); PCO2 Venous 64.4 mmHg (38-42); pH Blood Venous 7.15 (7.34-7.37)
[2024-10-07 14:01] LABS: Base Excess Venous -6.3 mmol/L
[2024-10-07] MEDS ORDERED: Dextrose 50% 50 ML Syringe IV STA (14:09)
[2024-10-07] MEDS ORDERED: Insulin Human Regular 100 UNIT/ML 10ML Vial SC STA (14:10)
[2024-10-07] MEDS ORDERED: Insulin Regular 100 UNIT/ML 10ML Vial ONE (14:31)
[2024-10-07] MEDS ORDERED: Insulin Human Regular 100 UNIT/ML 10ML Vial IV ONE (14:45)
[2024-10-07] MEDS ORDERED: Bumetanide 0.25 MG/ML 4ML ViaL IV SCH (15:00)
--- NOTE | 2024-10-07 15:13 | NUR ---
update this rn returned from lunch at 1400, and received report for bethel who was covering and just received critical cbg results. md hidalgo on the floor and this rn informed md hidalgo on the results. at the time it was discussed to place patient on bipap and this rn cardiac the polst and called family members. this rn spoke with son janes, and then handed the phone to md hidalgo who spoke with son janes and daughter in law maritza. the plan moving forward after the phone call is for patient to go on bipap, received high dose bumex, and for family to consent to a thoracentesis. bipap is in place at 14/6 with 30% and spo2 >90%. patient received iv insulin and dextrose to help improve potassium level. rubi radiologist tech called to ask about anti coags for the patient. this rn informed her. rubi spoke with pa radiologist and unavailable to do thoracentisis for at least five days for the plavix to be out. this rn called md hidalgo to update.
[2024-10-07 15:29] LABS: Calcium, Blood 8.9 mg/dL (8.5-10.1); Creatinine, Blood 3.32 mg/dL (0.40-1.00); Potassium, Blood 5.9 mmol/L (3.5-5.5)
[2024-10-07] MEDS ORDERED: Dextrose 50% 50 ML Syringe IV ONE ×2 (16:25→22:10)
--- NOTE | 2024-10-07 16:29 | NUR ---
UPDATE md hidalgo in the room to dwayne plan of care with family. patient is not able to have thoracentesis due to having plavix yesterday. plan is to have one time dose of bumex 5mg at 2100, place a santana for strict i&0s, and bipap to get the fluid off. md hidalgo is consult md holden.
[2024-10-07] MEDS ORDERED: Insulin Human Lispro 100 Units/ML 3ML Syringe SC SCH (18:00)
--- NOTE | 2024-10-07 18:03 | NUR ---
shift summary see previous notes. no new changes since previous notes. patient at this time is nonresponsive. patient did not moan or groan when patient was last repositioned. catheter is in place with scant yellow urine in the tube. plan is up to date. family is at bedside.
[2024-10-07] MEDS ORDERED: Doxycycline Hyclate 100 MG TAB PO SCH (21:00)
[2024-10-07] MEDS ORDERED: Bumetanide 0.25 MG/ML 10ML Vial IV ONE (21:00)
[2024-10-07 21:20] LABS: Base Excess Venous -8.5 mmol/L; Bicarbonate Venous 17.9 mmol/L (24.0-30.0); PCO2 Venous 41.9 mmHg (38-42); pH Blood Venous 7.26 (7.34-7.37)
--- NOTE | 2024-10-07 21:41 | NUR ---
SPOKE WITH HOSPITALIST DARRIUS. INFORMED OF RECENT BORDERLINE BP WITH SOME READINGS SHOWING MAP <60. DISCUSSED PT CASE FOR SOME TIME. BJ ORDERED STAT VBG AND BMP WITH ORDERS TO MOVE TO ICU ON PRESSORS IF BP STARTS TO MAINTAIN BELOW 65. SINCE THAT TIME BP HAS BEEN STABLE WITH MOST RECENT BP SHOWING MAP OF 72. ORDERS INPUT. CONTINUING TO MONITOR.
[2024-10-07 21:54] LABS: Bun/Creatinine Ratio 22.8 (12.0-20.0); Calcium, Blood 8.9 mg/dL (8.5-10.1); Creatinine, Blood 3.64 mg/dL (0.40-1.00); Potassium, Blood 6.1 mmol/L (3.5-5.5)
[2024-10-07] MEDS ORDERED: Insulin Human Regular 5 UNIT in NS 100 ML IV ONE (22:10)
[2024-10-07] MEDS ORDERED: Sodium Bicarb 8.4% 1 MEQ/ML 50 ML Vial IV ONE (22:15)
[2024-10-07] MEDS ORDERED: Insulin Regular 100 UNIT/ML 10ML Vial IV ONE (22:25)
[2024-10-08] VITALS (22 sets, daily range): BP systolic 104–159; BP diastolic 45–105
[2024-10-08 03:01] LABS: Base Excess Venous -6.6 mmol/L; Bicarbonate Venous 19.4 mmol/L (24.0-30.0); PCO2 Venous 40.4 mmHg (38-42)
[2024-10-08 04:07] LABS: Albumin, Blood 2.4 g/dL (3.4-5.0); Anion Gap 12 mmol/L (3-11); Blood Urea Nitrogen 86 mg/dL (8-24); Bun/Creatinine Ratio 22.5 (12.0-20.0); CO2, Blood 20 mmol/L (21-32); Chloride, Blood 112 mmol/L (98-108); Creatinine, Blood 3.82 mg/dL (0.40-1.00); Glomerular Filtration Rate 12 (60-); Glucose, Blood 92 mg/dL (70-99); Phosphorus, Blood 6.3 mg/dL (2.5-4.9); Potassium, Blood 6.4 mmol/L (3.5-5.5); Sodium, Blood 138 mmol/L (136-145)
--- NOTE | 2024-10-08 04:18 | NUR ---
SPOKE WITH DR. KIM REGARDING PT LABS. POTASSIUM HAS GONE UP TO 6.4 THIS MORNING AFTER RECEIVING 5 UNITS OF INSULIN AND AMP OF D50 LAST NIGHT WHEN HER POTASSIUM WAS 6.1. ALSO INFORMED THAT VBG HAS IMPROVED SOMEWHAT AFTER 1 AMP OF BICARB WAS INFUSED LAST NIGHT. DR. KIM INFORMED THAT HE WILL LOOK THROUGH PT CHART AND INPUT APPROPRIATE ORDERS. AWAITING ORDERS TO BE INPUT.
[2024-10-08] MEDS ORDERED: Dextrose 50% 50 ML Syringe IV ONE (05:00)
[2024-10-08] MEDS ORDERED: Insulin Regular 100 UNIT/ML 10ML Vial IV ONE (05:00)
[2024-10-08] MEDS ORDERED: Sodium Bicarb 8.4% 1 MEQ/ML 50 ML Vial IV ONE (05:00)
--- NOTE | 2024-10-08 05:00 | NUR ---
SHIFT SUMMARY. PT CONDITION HAS NOT IMPROVED SINCE SHIFT ONSET. PT MENTATION HAS REMAINED CONSISTENT WITH PT ABLE TO ANSWER QUESTIONS AND MAKE NEEDS KNOWN BUT REMAINS VERY CONFUSED AND VERY FREQUENTLY ASKS REPEATED QUESTIONS. APPEARS TO FORGET ANSWERS TO ASKED QUESTIONS WITHIN MINUTES OF HAVING ANSWERS PROVIDED. SOMNOLENT THROUGHOUT MUCH OF SHIFT, HAS WORN BIPAP THROUGHOUT NEAR ENTIRETY OF SHIFT WITH EXCEPTION OF 1 HOUR BREAK EARLY THIS MORNING PER PT REQUEST. KIDNEY FUNCTION CONTINUES TO DECLINE. SPOKE WITH DR. HAYWARD EARLY IN SHIFT WHO INFORMED THERE WAS NO NEED TO ADMINISTER 2100 BUMEX LAST NIGHT. KIDNEY FUNCTION HAS SHOWN TO BE REPEATEDLY DECREASING ACROSS SUBSEQUENT LABS THROUGHOUT SHIFT. PT HAS HAD ZERO URINE OUTPUT THIS SHIFT THUS FAR. SPOKE WITH BOTH DARRIUS LORENZO AND DR. KIM AT DIFFERENT POINTS REGARDING METABOLIC ACIDOSIS. ADMINISTERED 2 AMPS OF SODIUM BICARB TOTAL. POTASSIUM CONTINUES TO INCREASE ACROSS SUBSEQUENT LABS. SO FAR HAVE GIVEN 2 AMPS OF D50 AND 10 UNITS OF REGULAR IV INSULIN ACROSS 2 DIFFERENT ADMINISTRATION PERIODS OF HYPERKALEMIA. ON MOST RECENT CONVERSATION WITH DR. KIM TO REPORT CRITICAL POTASSIUM OF 6.4, INFORMED THAT AFTER PREVIOUS POTASSIUM OF 6.1 WE ADMINISTERED 5 UNITS OF INSULIN AND 1 AMP OF D50. POTASSIUM THEN MARYANN TO 6.[address] KIM ENDED UP ORDERING SUBSEQUENT AMP OF D50 WITH 5 MORE UNITS OF INSULIN WITH REPEAT BMP @ 0800. PT HAS BEEN RUNNING AFIB IN THE 80s-90s THROUGHOUT SHIFT. BP HAS REMAINED SOMEWHAT SOFT THROUGHOUT SHIFT BUT MAP HAS MOSTLY BEEN ABOVE 65 WITH RARE EXCEPTION. PT DENIES PAIN CONSISTENTLY OUTSIDE OF THAT ASSOCIATED WITH REPOSITIONING BUT REPORTS GENERALLY FEELING CRUMMY. ATTEMPTED PO MEDICATION ADMINISTRATION EARLY IN SHIFT BUT PT WAS UNABLE TO COMPLETE D/T ASPIRATION RISK. CONTINUING TO CLOSELY MONITOR. BED LOCKED IN LOWEST POSITION. CALL LIGHT LEFT WITHIN REACH.
[2024-10-08 07:16] LABS: Calcium, Blood 8.8 mg/dL (8.5-10.1); Potassium, Blood 5.6 mmol/L (3.5-5.5)
--- NOTE | 2024-10-08 08:38 | NUR ---
am note this rn assumed care at 0700 from liliya rn and did bedside shift report. vital signs stable at this time. spo2 >90% on avap with 35% fio2. tele afib 80s. patient responds to painful stimuli and opened up eyes when sternum rubbed but then shut them right after. patient only moaned and groan and no words. patient would not follow this rns commands. patient does not appear in cardiac distress, pain, or respiratory distress. see shift assessment for further detials. md hidalgo in to see patient and discussed patient either needing to move forward with dialysis or if the patient would not want that, then comfort care should be discussed. md hidalgo said to call him if family comes and if not he will be giving family a call around 1100.
[2024-10-08] MEDS ORDERED: Midodrine 5 MG Tab PO SCH (09:00)
--- NOTE | 2024-10-08 09:45 | NUR ---
update patient woke up during bed bath. patient is not aware of where she is, but is able to state her name and date and asking for her son. rn discharge updated md hidalgo and this rn called her son, and spoke with her sons, son janes, whom said that the patients son, janes, will be in later and [facility] this rn updated patient. patient orientation to self and person.
--- NOTE | 2024-10-08 12:14 | NUR ---
update patient after bed bath remain alert and oriented to person, place and self. patient reminisicing on life with hubsand, children, hobbies, and being a seamstress. this rn listened and prompted questions to continue conversation. patient during conversation was smiling and laughing. this rn did a bedside swallow eval and patient passed. patient ate a snack. patient asking why she is here and this rn explained that the patient had a revasc to right toe on 10/05, and currently patient has a santana catheter in to monitor urine output and patients kidneys are not working as effeciently as they should be and there has been discussion of possibly needing dialysis, but have been told by family this isnt something your interested in. patient states "i dont know what i want" this rn explain what dialysis is and what it entails. patient listened and this rn asked how the patient is feeling and patient stated "scared" this rn validating her feelings and providied therapeutinc communication and activie listening. this rn informed her that the detective youth bureau [place] would be by this evening and can discuss with you further on your options and go into further detial what dialysis looks like. this rn called md hidalgo to inform him of patient taking oral medications and improvement of mentation and conversation. md ambriz. patient currently eating lunch independently.
[2024-10-08 14:40] LABS: Bun/Creatinine Ratio 20.4 (12.0-20.0); Calcium, Blood 9.1 mg/dL (8.5-10.1); Creatinine, Blood 4.31 mg/dL (0.40-1.00); Potassium, Blood 5.5 mmol/L (3.5-5.5)
[2024-10-08] MEDS ORDERED: Insulin Human Lispro 100 Units/ML 3ML Syringe SC SCH (16:30)
--- NOTE | 2024-10-08 17:45 | NUR ---
shift summary see previous notes for updates. patient neuro remains the same from previous notes. plan remains up to date. no acute changes. vitals remain stable. patient refusing dinner and wanting to sleep. this rn saved the tray.
--- NOTE | 2024-10-08 18:06 | NUR ---
update md holden in the room and barber and discussing dialysis. patient does not want dialysis at this time.
[2024-10-08] MEDS ORDERED: Acetaminophen 325 MG TABLET PO PRN (21:00)
[2024-10-09] MEDS ORDERED: FentaNYL Citrate 50 MCG/ML 2 ML Injection IV PRN ×2 (01:45→08:40)
[2024-10-09 03:52] VITALS: BP 144/60
[2024-10-09 05:49] LABS: Albumin, Blood 2.2 g/dL (3.4-5.0); Anion Gap 15 mmol/L (3-11); Blood Urea Nitrogen 97 mg/dL (8-24); Bun/Creatinine Ratio 21.9 (12.0-20.0); CO2, Blood 19 mmol/L (21-32); Calcium, Blood 8.5 mg/dL (8.5-10.1); Chloride, Blood 110 mmol/L (98-108); Creatinine, Blood 4.43 mg/dL (0.40-1.00); Glomerular Filtration Rate 10 (60-); Glucose, Blood 160 mg/dL (70-99); Phosphorus, Blood 6.5 mg/dL (2.5-4.9); Potassium, Blood 6.3 mmol/L (3.5-5.5); Sodium, Blood 138 mmol/L (136-145)
--- NOTE | 2024-10-09 06:02 | NUR ---
SHIFT SUMMARY PT HAD INCREASING PAIN OVERNIGHT. MEDS ADJUSTED BY MD. TOLERATING BIPAP FAIRLY, SPO2 > 92%. PLAN FOR COMFORT MEASURE IN AM PER FAMILY.
--- NOTE | 2024-10-09 06:32 | NUR ---
RN NOTE PT'S POTASSIUM IS CRITICALLY HIGH THIS AM AT 6.3. PAINT FORMULATOR NOTIFIED. THIS RN ATTEMPTED TO CALL NIGHT RESIDENT, DR. FOREMAN, NO ANSWER. THIS RN ATTEMPTED TO CALL DR. KIM, NO ANSWER. THIS RN PHONED DR. HAYWARD, PT'S CARROT HARVESTER. THIS RN DISCUSSED POTASSIUM OF 6.[address] HAYWARD, ANTICIPATING ORDERS. DR. HAYWARD INSTRUCTED THIS RN TO "GIVE WHAT THEY GAVE LAST TIME." THIS RN REFUSED THIS UNSAFE REQUEST. WHEN THIS RN STATED SHE DID NOT FEEL THIS WAS A SAFE REQUEST, MD STATED HE DID NOT FEEL SAFE PUTTING IN ORDERS FOR THE PATIENT EITHER. PATIENT IS HAVING CARDIAC PAUSES. MOMENTS LATER, DR. LEWIS PHONED RN BACK. DR. KIM STATES HE IS NOT COMFORTABLE PUTTING IN ORDERS FOR THIS PATIENT AT THIS TIME. RN CONTINUES TO SEEK APPROPRIATE CARE FOR THIS PATIENT... THIS RN ATTEMPTED TO CALL DR. HAYWARD AGAIN, SENT TO [employer].
[2024-10-09] MEDS ORDERED: Insulin Regular 100 Unit/ML 1ML Dose IV ONE (07:00)
[2024-10-09] MEDS ORDERED: Morphine Sulfate 20 MG/1ML 1 ML Oral Syringe SL PRN (07:00)
[2024-10-09] MEDS ORDERED: Dextrose 50% 50 ML Vial IV ONE (07:00)
[2024-10-09] MEDS ORDERED: Sodium Bicarb 8.4% 50 mEq Syringe IV ONE (07:00)
--- NOTE | 2024-10-09 07:20 | NUR ---
UPON SHIFT START FAMILY AT BEDSIDE AND DECISION FOR COMFORT CARE. NOC DOCTOR AND DAY SHIFT DOCTOR TO PLACE COMFORT CARE ORDERS. DAUGHTER IN LAW AT BEDSIDE REQUESTING BIPAP OFF. BIPAP OFF AT THIS TIME. PATIENT RESTING IN BED WITH EYES CLOSED, EVEN AND UNLABORED RESPIRATIONS AT THIS TIME. FAMILY REMAINS AT BEDSIDE.
[2024-10-09] MEDS ORDERED: LORazepam 2 MG/ML 1ML Injection IV PRN (08:00)
[2024-10-09] MEDS ORDERED: LORazepam 2 MG/ML 1ML Injection IV ONE (08:00)
--- NOTE | 2024-10-09 08:42 | NUR ---
FAMILY PRESENT AT BEDSIDE. PATIENT RESTING WITH EYES CLOSED. PATIENT PAIN IMPROVED POST ROXANOL AND ATIVAN ADMINISTRATION. COMFORT CARE CART ORDERS IN PLACE FOR FAMILY. DR. ERIC AT BEDSIDE. NO NEW ORDERS FOR THIS RN TO PLACE.
[2024-10-09] MEDS ORDERED: Scopolamine Hydrobromide Patch TOP PRN (10:00)
[2024-10-09] MEDS ORDERED: Atropine Sulfate 1% Opth Soln 2ML BTL MM PRN (10:00)
--- NOTE | 2024-10-09 10:16 | NUR ---
PATIENT WITH AUDIBLE ORAL SECRETIONS. DR. ERIC NOTIFIED - ATROPINE DROPS AND SCOPOLOMINE PATCH ORDERS IN PLACE. FAMILY REMAINS AT BEDSIDE. COMFORT CARE CHART IN ROOM FOR FAMILY. PATIENT RESTING IN BED WITH EYES CLOSED. IRREGULAR RESPIRATIONS AT TIMES WITH AUDIBLE ORAL SECRETIONS. PATIENT DOES NOT APPEAR TO BE IN ANY DISCOMFORT AT THIS TIME.
--- NOTE | 2024-10-09 16:46 | NUR ---
FAMILY HAS LEFT AT THIS TIME. FAMILY PHONE CONTACT - TUNG: OR . PATIENT NONRESPONSIVE AT THIS TIME WITH OCCASIONAL GROANS WHEN PAINFUL OR TURNING. TURING AND ORAL CARE CONTINUED FOR COMFORT. BARROS REMAINS IN PLACE. SCOPOLAMINE PATCH BEHIND LEFT EAR. PATIENT DOES NOT APPEAR IN ANY DISTRESS AT THIS TIME. MEDICATED FOR PAIN THROUGHOUT SHIFT WITH PO ROXANOL X1, IV FENTANYL X4 AND IV ATIVAN X2.
--- NOTE | 2024-10-09 17:52 | NUR ---
TIME OF 1740. 2ND RN IN TO VERIFY. FAMILY UPDATED AND NOTIFIED. BELONGINGS COLLECTED AND TO BE GIVEN TO GRANDSON WHO IS COMING IN PER FAMILY INSTRUCTIONS. POST MORTUM CARE DONE. INTERNATIONAL MARKETING SPECIALIST TO CALL DONOR LINE/ HOME.
== END 2024-10-09 19:55 | DRG 278 ==
LOC: ER 16:37 → ERHOLD 20:54 → MEDS 20:54 → PCU 09-28 15:02 → MEDS 09-28 15:02 → PCU 10-05 15:57
PROVIDERS: Internal Medicine; Nurse Practitioner Acute Care; Physician Assistant; Student in an Organized Health Care Education/Training Program; ADMIT Student in an Organized Health Care Education/Training Program
PROC: 3E03329 Introduction of Other Anti-infective into Peripheral Vein, Percutaneous Approach (ICD-10-PCS; 2024-09-27)
PROC: B41FZZZ Fluoroscopy of Right Lower Extremity Arteries (ICD-10-PCS; 2024-10-05)
PROC: 04FK3ZZ Fragmentation of Right Femoral Artery, Percutaneous Approach (ICD-10-PCS; 2024-10-05)
PROC: 04FP3ZZ Fragmentation of Right Anterior Tibial Artery, Percutaneous Approach (ICD-10-PCS; 2024-10-05)
PROC: 04FM3ZZ Fragmentation of Right Popliteal Artery, Percutaneous Approach (ICD-10-PCS; 2024-10-05)
PROC: B44FZZ3 Ultrasonography of Right Lower Extremity Arteries, Intravascular (ICD-10-PCS; 2024-10-05)
PROC: B41DZZZ Fluoroscopy of Aorta and Bilateral Lower Extremity Arteries (ICD-10-PCS; 2024-10-05)
PROC: 5A09457 Assistance with Respiratory Ventilation, 24-96 Consecutive Hours, Continuous Positive Airway Pressure (ICD-10-PCS; principal; 2024-10-07)
DX: E11.52 Type 2 diabetes mellitus with diabetic peripheral angiopathy with gangrene (principal); G92.8 Other toxic encephalopathy; I50.33 Acute on chronic diastolic (congestive) heart failure; J96.21 Acute and chronic respiratory failure with hypoxia; Z51.5 Encounter for palliative care; Z66 Do not resuscitate; Z99.3 Dependence on wheelchair; Z99.81 Dependence on supplemental oxygen; N17.0 Acute kidney failure with tubular necrosis; I70.261 Atherosclerosis of native arteries of extremities with gangrene, right leg; M86.671 Other chronic osteomyelitis, right ankle and foot; Z28.21 Immunization not carried out because of patient refusal; I48.0 Paroxysmal atrial fibrillation; N18.30 Chronic kidney disease, stage 3 unspecified; E11.22 Type 2 diabetes mellitus with diabetic chronic kidney disease; I25.10 Atherosclerotic heart disease of native coronary artery without angina pectoris; E87.5 Hyperkalemia; E03.9 Hypothyroidism, unspecified; E11.69 Type 2 diabetes mellitus with other specified complication; E11.42 Type 2 diabetes mellitus with diabetic polyneuropathy; I27.20 Pulmonary hypertension, unspecified; E78.5 Hyperlipidemia, unspecified; G89.29 Other chronic pain; M54.9 Dorsalgia, unspecified; M79.7 Fibromyalgia; F32.A Depression, unspecified; E11.39 Type 2 diabetes mellitus with other diabetic ophthalmic complication; H42 Glaucoma in diseases classified elsewhere; E87.6 Hypokalemia; G47.33 Obstructive sleep apnea (adult) (pediatric); Z91.048 Other nonmedicinal substance allergy status; Z88.1 Allergy status to other antibiotic agents; Z88.2 Allergy status to sulfonamides; Z95.5 Presence of coronary angioplasty implant and graft; Z79.82 Long term (current) use of aspirin; Z79.899 Other long term (current) drug therapy; Z79.890 Hormone replacement therapy; I25.2 Old myocardial infarction; Z86.74 Personal history of sudden cardiac arrest; Z79.01 Long term (current) use of anticoagulants; D63.1 Anemia in chronic kidney disease; Z87.01 Personal history of pneumonia (recurrent); Z98.890 Other specified postprocedural states; Z79.4 Long term (current) use of insulin; Z79.84 Long term (current) use of oral hypoglycemic drugs; Z86.73 Personal history of transient ischemic attack (TIA), and cerebral infarction without residual deficits; Z95.1 Presence of aortocoronary bypass graft
CPT/HCPCS: 36200; 36247; 36415; 37252; 71045; 71046; 73630; 75625; 75635; 75716; 76937; 80048; 80053; 80069; 80202; 82803; 82947; 83036; 83735; 83880; 84145; 85025; 85027; 85347; 85651; 86140; 93306; 93926; 94660; 94762; 96365; 96366; 96367; 96368; 96372-59; 96376; 99152; 99153; 99285-25; A9270; C1725; C1760; C1769; C1773; C1887; C1894; C9764; C9772; G0378; J1644; J1650; J1815; J2060; J2250; J2543; J3010; J3370; J3480; J7030; J7040; J7050; Q9967